=== PATIENT | male | born 1960 | race Caucasian/White ===

== ENCOUNTER 2023-10-15 12:16 | Outpatient (AMB) | payer OTHER, SELFPAY ==
--- NOTE | 2023-10-15 12:29 | MHC.PC.OV ---
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 Accompanied by: Self / Same As Patient Allergies loratadine [From Claritin] Allergy (Severe, Verified 10/15/23 12:38) Hives Medication List - Last Reconciled 10/15/23 by Sylvia Stoner MD empagliflozin (Jardiance) 10 mg PO DAILY finasteride 5 mg PO DAILY fluticasone propionate 220 mcg/actuation 2 puffs inhalation BID metformin ER 1,000 mg PO BID methocarbamol 750 mg PO TID semaglutide (Ozempic) mg subcut tamsulosin 0.8 mg PO DAILY tiotropium bromide 1.25 mcg/actuation (Spiriva Respimat) 2 puffs inhalation DAILY Tobacco use date assessed: 10/15/23 Dental Screening Dental Screen Date: 10/15/23 Did you have a dental visit in the last 12 months?: Yes Did you have a dental problem in the last 6 months where you did not have access to dental care?: No Was dental information given to patient?: Patient has dentist HPI HPI Comments History of Present Illness Details This is a 62-year-old male with diabetes mellitus type 2, hypertension, COPD and BPH that comes today to establish care. He complains of a low back pain that started about a month ago when he did a twisted motion while trying to move a 300 lb object. The low back pain radiates to the right leg and is associated with right leg numbness. He is able to walk with no assistive device. No fever, bowel or bladder incontinence. Last A1c was recent and he was 6.4%. Blood pressure elevated and will be recheck in 3 weeks by nurse navigator. COPD stable with Spiriva and use rescue inhaler once a month. On finasteride for BPH. No chest pain or shortness on breath. [facility] Surgical History History of rotator cuff surgery Family History Mother No problems noted. Father Hypertension Diabetes Social History (Updated 10/15/23 @ 12:47 by Sylvia Stoner MD) Housing: House Alcohol intake: current Alcohol intake frequency: 3 or more drinks per day Alcohol type: beer Patient Tobacco Use Status: Former Tobacco user Tobacco use type: Cigarette e-Cigarette/Vaping Use: Never Used Second Hand Smoke Exposure: No service: Yes Current occupational status: employed Current occupational exposures/hazards: No Cognitive needs: No Hearing needs: No Vision needs: Yes Questionnaire PHQ-9 Over the last 2 weeks, how often have you been bothered by any of the following problems? 1. Little interest or pleasure in doing things: not at all 2. Feeling down, depressed, or hopeless: not at all 3. Trouble falling or staying asleep, or sleeping too much: not at all 4. Feeling tired or having little energy: not at all 5. Poor appetite or overeating: not at all 6. Feeling bad about yourself - or that you are a failure or have let yourself or your family down: not at all 7. Trouble concentrating on things, such as reading the newspaper or watching television: not at all 8. Moving or speaking so slowly that other people could have noticed. Or the opposite - being so fidgety or restless that you have been moving around a lot more than usual: not at all 9. Thoughts that you would be better off or of hurting yourself in some way: not at all Total score: 0 Depression Screening Interpretation: Negative Depression Screening Done: Yes 07130 - PHQ-9 Billing: Yes Source: Developed by Drs. Bryant Pete, Deana Henderson, Mirza Tierney and colleagues, with an educational jayesh from [employer]. Thrive Questionnaire Date Thrive assessed: 10/15/23 I am a: Patient What is your living situation today?: I have a steady place to live Within the past 12 months, did the food you bought not last and you didn't have the money to get more?: Never true Within the past 12 months, did you worry whether your food would run out before you got money to buy more?: Never true Do you have trouble paying for medicines?: No Do you have trouble getting transportation to medical appointments?: No Do you have trouble paying your heating and electricity bill?: No Do you have trouble taking care of your child, family member or friend?: No Do you have trouble with day-to-day activities such as bathing, preparing meals, shopping, managing finances, etc.?: No Are you currently unemployed and looking for a job?: No Are you interested in more education?: No Please select the resources that you would like help with: None Currently or been in a relationship where the following occur: no concerns reported THRIVE Score: 0 AUDIT C Alcohol Use Questionnaire (AUDIT-C) 1. How often do you have a drink containing alcohol?: 4 or more times a week 2. How many drinks containing alcohol do you have on a typical day when you are drinking?: 3 or 4 3. How often do you have six or more drinks on one occasion?: Never Total Score: 5 FLETCHER-7 AMB Questionnaire FLETCHER-7 Date FLETCHER - 7 assessed: 10/15/23 Feeling nervous, anxious, or on edge: 0 = Not at all Not being able to stop or control worryin = Not at all Worrying too much about different things: 0 = Not at all Trouble relaxin = Not at all Being so restless that it is hard to sit still: 0 = Not at all Becoming easily annoyed or irritable: 0 = Not at all Feeling afraid as if something awful might happen: 0 = Not at all Total FLETCHER-7 score (0-4 normal; 5-9 mild; 10-14 moderate; 15-21 severe): 0 Source: Developed by Drs. Bryant Pete, Deana Henderson, Mirza Tierney and colleagues, with an educational jayesh from [employer]. FLETCHER-7 Assessment Billing FLETCHER-7 Assessment Tool: FLETCHER-7 Assessment 44408 Review of Systems Const All systems reviewed & are unremarkable except as noted in HPI and below Card Denies chest pain at rest, Denies chest pain with activity, Denies edema, Denies irregular heart rhythm, Denies claudication, Denies dyspnea, Denies dyspnea on exertion, Denies orthopnea, Denies paroxysmal nocturnal dyspnea and Denies slow heart rate Resp Denies cough, Denies dyspnea and Denies dyspnea on exertion Musc Reports back pain and Reports radiating pain into limb Physical exam (Primary Care) Vital Signs: Last Vital Signs BP 152/70 H 10/15/23 12:30 BMI result Body Mass Index 28.0 Tobacco/Smoking Status: Tobacco use Status Tobacco use date assessed 10/15/23 10/15/23 12:39 Patient Tobacco Use Status Former Tobacco user 10/15/23 12:39 Tobacco use type Cigarette 10/15/23 12:39 e-Cigarette/Vaping Use Never Used 10/15/23 12:39 PHQ-9: PHQ-9 Score PHQ-9: Total score 0 10/15/23 12:39 Depression Screening Interpretation: Negative Thrive Assessment: Date of Thrive Assessment Date Thrive assessed 10/15/23 10/15/23 12:39 Currently or been in a relationship where the following occur: no concerns reported Const General: cooperative Resp Effort & Inspection: normal respiratory effort Auscultation: clear to auscultation bilaterally Cardio Jugular venous distension: no JVD Rate: regular rate Rhythm: regular rhythm Heart sounds: S1 normal heart sound present and S2 normal heart sound present Back/Spine/Pelvis Thoracic/Lumbar Spine: straight leg raise positive right at 30 degrees Extrem General: Yes full ROM Assessment and Plan Assessment & Plan (1) Right sided sciatica: Code(s): M54.31 - Sciatica, right side Plan: Referred to Ortho. Start diclofenac as needed. Continue methocarbamol as needed. (2) Type 2 diabetes mellitus, without long-term current use of insulin: Code(s): E11.9 - Type 2 diabetes mellitus without complications Qualifiers: Diabetes mellitus complication status: with neurologic complications Diabetes mellitus complication detail: with unspecified neuropathy Qualified Code(s): E11.40 - Type 2 diabetes mellitus with diabetic neuropathy, unspecified Plan: Continue Ozempic and Jardiance. A1c goal is equal or less than 7%. (3) Essential hypertension: Code(s): I10 - Essential (primary) hypertension Plan: Recheck blood pressure with nurse navigator in 3 weeks. (4) COPD (chronic obstructive pulmonary disease): Code(s): J44.9 - Chronic obstructive pulmonary disease, unspecified Qualifiers: COPD type: unspecified COPD Qualified Code(s): J44.9 - Chronic obstructive pulmonary disease, unspecified Plan: Continue Spiriva. Use rescue inhaler as needed. (5) BPH (benign prostatic hyperplasia): Code(s): N40.0 - Benign prostatic hyperplasia without lower urinary tract symptoms Qualifiers: Lower urinary tract symptom presence: unspecified whether lower urinary tract symptoms present Qualified Code(s): N40.0 - Benign prostatic hyperplasia without lower urinary tract symptoms Plan: Continue finasteride. Orders: Orders Lipid Panel 4 Months E11.9 - Type 2 diabetes mellitus without complications, E78.5 - Hyperlipidemia, unspecified Microalbumin, Random (w Creat) 4 Months E11.9 - Type 2 diabetes mellitus without complications Comprehensive [place]. Panel Fast 4 Months E11.9 - Type 2 diabetes mellitus without complications Referrals Orthopedics Referral M54.31 - Sciatica, right side Medications: New diclofenac sodium 75 mg PO BID PRN 60 tabs 0RF pain 30 days M54.31 - Sciatica, right side methocarbamol 750 mg PO TID 90 tabs 1RF 30 days Coding Level of Care Code New Pt Level 4 (27050) Complex EM visit Add On G2211 Diagnoses Right sided sciatica M54.31 Type 2 diabetes mellitus with diabetic neuropathy, without long-term current use of insulin E11.40 Diabetes mellitus complication status: with neurologic complications Diabetes mellitus complication detail: with unspecified neuropathy Essential hypertension I10 Chronic obstructive pulmonary disease, unspecified COPD type J44.9 COPD type: unspecified COPD Benign prostatic hyperplasia, unspecified whether lower urinary tract symptoms present N40.0 Lower urinary tract symptom presence: unspecified whether lower urinary tract symptoms present Additional Codes FLETCHER-7 Assessment Billing - FLETCHER-7 Assessment Tool: FLETCHER-7 Assessment 15143 ([id number]) Time Spent (min) 25
[2023-10-15 12:30] VITALS: BP 152/70; BMI 28.0
== END 2023-10-15 12:57 | disposition home or self-care (01) ==
PROVIDERS: Visit Provider Internal Medicine
DX: M54.31 Sciatica, right side (principal); E11.40 Type 2 diabetes mellitus with diabetic neuropathy, unspecified; I10 Essential (primary) hypertension; J44.9 Chronic obstructive pulmonary disease, unspecified; N40.0 Benign prostatic hyperplasia without lower urinary tract symptoms
CPT/HCPCS: 99204; G2211

== ENCOUNTER 2024-03-10 15:46 | Outpatient (REF) | payer OTHER, SELFPAY ==
[2024-03-10 17:10] LABS: Alanine Aminotransferase 28 U/L (0-40); Albumin Level 3.8 g/dL (3.5-5.0); Alkaline Phosphatase 173 U/L (39-117); Anion Gap 14 (12-20); Aspartate Amino Transferase 28 U/L (5-37); Bilirubin Total 1.1 mg/dL (0.0-1.0); Blood Urea Nitrogen 14 mg/dL (9-16); Calcium 9.4 mg/dL (8.4-10.2); Carbon Dioxide 23 mmol/L (22-29); Chloride 107 mmol/L (96-108); Cholesterol 151 mg/dL (<200); Estimated Glomerular Filt Rate > 60; Glucose Fasting 82 mg/dL (60-99); HDL Cholesterol 69 mg/dL (>40); LDL Cholesterol Calculated 63 mg/dL (<100); Potassium 4.1 mmol/L (3.3-5.1); Sodium 140 mmol/L (135-145); Triglycerides 99 mg/dL (<150)
[2024-03-10 18:37] LABS: Creatinine Urine 87.58 mg/dL; Microalbum/Creatinine Ratio Ur 19.4 ug/mg cr (<30)
== END 2024-03-10 15:47 | disposition home or self-care (01) ==
LOC: HO.LAB 15:46
PROVIDERS: PCP Internal Medicine; Visit Provider Internal Medicine
DX: Z00.01 Encounter for general adult medical examination with abnormal findings (principal); J44.9 Chronic obstructive pulmonary disease, unspecified; E11.40 Type 2 diabetes mellitus with diabetic neuropathy, unspecified; N40.0 Benign prostatic hyperplasia without lower urinary tract symptoms; J01.90 Acute sinusitis, unspecified; E78.5 Hyperlipidemia, unspecified; Z79.84 Long term (current) use of oral hypoglycemic drugs; Z79.85 Long-term (current) use of injectable non-insulin antidiabetic drugs; Z28.21 Immunization not carried out because of patient refusal
CPT/HCPCS: 36415; 80053; 80061; 82043; 82570; 83036; 90471; 96127

== ENCOUNTER 2024-03-10 16:16 | Outpatient (AMB) | payer OTHER, SELFPAY ==
[2024-03-10 16:19] VITALS: BP 152/80; BMI 27.8
--- NOTE | 2024-03-10 16:19 | A.OFFPC_ITS ---
Vital Signs 03/10/24 16:19 03/10/24 16:59 Height 5 ft 10 in Weight 194 lb BMI 27.8 BP 152/80 H 150/80 H Blood Pressure Location Lt brachial Lt brachial Position Sitting Sitting Intake Visit Reasons: Annual exam Intake Note: Patient here for an Annual Physical Exam Certified Orthotist Required: No Accompanied by: Self / Same As Patient Allergies loratadine [From Claritin] Allergy (Severe, Verified 03/10/24 16:23) Hives Medication List - Last Reconciled 03/10/24 by Sylvia Stoner MD diclofenac sodium 75 mg PO BID PRN 30 days empagliflozin (Jardiance) 10 mg PO DAILY finasteride 5 mg PO DAILY fluticasone propionate 220 mcg/actuation 2 puffs inhalation BID losartan-hydrochlorothiazide 100-12.5 mg 1 tab PO DAILY metformin ER 1,000 mg PO BID methocarbamol 750 mg PO TID 30 days semaglutide (Ozempic) 0.25 mg (0.368 mL) subcut QWEEK 4 weeks tamsulosin 0.8 mg (2 x 0.4 mg) PO DAILY 90 days tiotropium bromide 1.25 mcg/actuation (Spiriva Respimat) 2 puffs inhalation DAILY Tobacco use date assessed: 10/15/23 Dental Screening Dental Screen Date: 10/15/23 HPI HPI Comments History of Present Illness Details This is 63-year-old male with diabetes mellitus type 2 and COPD that comes for his physical exam. A1c within goal. I will decrease metformin and increase Ozempic. Diabetic eye exam was January 2024. Colonoscopy done about 4-5 years ago at [facility] and he was normal. COPD stable with long-acting inhaler. Use rescue inhaler as needed. Labs are still pending. Complains of sinus tenderness and I will prescribe an antibiotic. Also has BPH and needs referral to Urology. Has neuropathy and needs referral to Neurology. Blood pressure elevated today and run out of blood pressure medication. [facility] Surgical History (Updated 03/10/24 @ 16:59 by Sylvia Stoner MD) History of colonoscopy History of rotator cuff surgery Family History (Updated 03/10/24 @ 16:30 by Sylvia Stoner MD) Mother Osteoporosis Father Hypertension Diabetes Social History (Updated 03/10/24 @ 16:31 by Sylvia Stoner MD) Housing: House Alcohol intake: current Alcohol intake frequency: 0-2 drinks per day Alcohol type: beer Patient Tobacco Use Status: Former Tobacco user Tobacco use type: Cigarette e-Cigarette/Vaping Use: Never Used Second Hand Smoke Exposure: No service: Yes Current occupational status: employed Current occupational exposures/hazards: No Cognitive needs: No Hearing needs: No Vision needs: Yes Questionnaire PHQ-9 Over the last 2 weeks, how often have you been bothered by any of the following problems? 1. Little interest or pleasure in doing things: not at all 2. Feeling down, depressed, or hopeless: not at all 3. Trouble falling or staying asleep, or sleeping too much: not at all 4. Feeling tired or having little energy: not at all 5. Poor appetite or overeating: not at all 6. Feeling bad about yourself - or that you are a failure or have let yourself or your family down: not at all 7. Trouble concentrating on things, such as reading the newspaper or watching television: not at all 8. Moving or speaking so slowly that other people could have noticed. Or the opposite - being so fidgety or restless that you have been moving around a lot more than usual: not at all 9. Thoughts that you would be better off or of hurting yourself in some way: not at all Total score: 0 Depression Screening Interpretation: Negative Depression Screening Done: Yes 43474 - PHQ-9 Billing: Yes Source: Developed by Drs. Bryant Pete, Deana Henderson, Mirza Tierney and colleagues, with an educational jayesh from [employer]. Thrive Questionnaire Date Thrive assessed: 10/15/23 I am a: Patient What is your living situation today?: I have a steady place to live Within the past 12 months, did the food you bought not last and you didn't have the money to get more?: Never true Within the past 12 months, did you worry whether your food would run out before you got money to buy more?: Never true Do you have trouble paying for medicines?: No Do you have trouble getting transportation to medical appointments?: No Do you have trouble paying your heating and electricity bill?: No Do you have trouble taking care of your child, family member or friend?: No Do you have trouble with day-to-day activities such as bathing, preparing meals, shopping, managing finances, etc.?: No Are you currently unemployed and looking for a job?: No Are you interested in more education?: I choose not to answer this question Please select the resources that you would like help with: None Currently or been in a relationship where the following occur: No concerns reported THRIVE Score: 0 AUDIT C Alcohol Use Questionnaire (AUDIT-C) 1. How often do you have a drink containing alcohol?: 4 or more times a week 2. How many drinks containing alcohol do you have on a typical day when you are drinking?: 1 or 2 3. How often do you have six or more drinks on one occasion?: Never Total Score: 4 FLETCHER-7 AMB Questionnaire FLETCHER-7 Date FLETCHER - 7 assessed: 10/15/23 Feeling nervous, anxious, or on edge: 0 = Not at all Not being able to stop or control worryin = Not at all Worrying too much about different things: 0 = Not at all Trouble relaxin = Not at all Being so restless that it is hard to sit still: 0 = Not at all Becoming easily annoyed or irritable: 0 = Not at all Feeling afraid as if something awful might happen: 0 = Not at all Total FLETCHER-7 score (0-4 normal; 5-9 mild; 10-14 moderate; 15-21 severe): 0 Source: Developed by Drs. Bryant Pete, Deana Henderson, Mirza Tierney and colleagues, with an educational jayesh from [employer]. FLETCHER-7 Assessment Billing FLETCHER-7 Assessment Tool: FLETCHER-7 Assessment 73870 Review of Systems Const All systems reviewed & are unremarkable except as noted in HPI and below Card Denies chest pain at rest, Denies chest pain with activity, Denies edema, Denies irregular heart rhythm, Denies claudication, Denies dyspnea, Denies dyspnea on exertion, Denies orthopnea, Denies paroxysmal nocturnal dyspnea and Denies slow heart rate Resp Denies cough, Denies dyspnea and Denies dyspnea on exertion GI Denies abdominal pain, Denies change in bowel habits, Denies excessive flatus, Denies nausea and Denies vomiting Denies urinary hesitancy, Denies urinary incontinence and Denies urinary urgency Musc Denies abnormal gait, Denies atrophy, Denies deformity and Denies limited range of motion Skin/Breast Denies bleeding lesions, Denies changing lesions and Denies rash Neuro Denies abnormal gait, Denies behavioral changes and Denies lack of coordination Psych Denies behavioral changes Physical exam (Primary Care) Vital Signs: Last Vital Signs BP 152/80 H 03/10/24 16:19 BMI result Body Mass Index 27.8 Tobacco/Smoking Status: Tobacco use Status Tobacco use date assessed 10/15/23 03/10/24 16:23 Patient Tobacco Use Status Former Tobacco user 03/10/24 16:31 Tobacco use type Cigarette 03/10/24 16:31 e-Cigarette/Vaping Use Never Used 03/10/24 16:31 PHQ-9: PHQ-9 Score PHQ-9: Total score 0 03/10/24 16:49 Depression Screening Interpretation: Negative Thrive Assessment: Date of Thrive Assessment Date Thrive assessed 10/15/23 03/10/24 16:23 Currently or been in a relationship where the following occur: No concerns reported HENTX Head: Yes normal to inspection, Yes normocephalic and Yes atraumatic Ears: external ears normal Eyes General: appearance normal, both eyes and all related structures Eyelids: Yes eyelids normal Conjunctivae: conjunctivae normal Neck Neck: Yes normal visual inspection and Yes supple Resp Effort & Inspection: normal respiratory effort Auscultation: clear to auscultation bilaterally Cardio Jugular venous distension: no JVD Rate: regular rate Rhythm: regular rhythm Heart sounds: S1 normal heart sound present and S2 normal heart sound present GI Inspection: Yes normal to inspection Palpation (GI): Soft to palpation and nontender Auscultation: normal bowel sounds Skin General skin exam: no rashes or lesions noted Neuro General: no focal motor deficits Extrem General: Yes full ROM Psych Appearance: grossly normal Office Procedures Flu Questionnaire Does the patient have a severe egg allergy?: No Results AMB Hemoglobin A1c AMB Hemoglobin A1c 5.7 % Last Edit by KY Mcnally on 03/10/24 16:3 5 Immunizations Fluarix Triv [id number] (PF) 45 mcg (15 mcg x 3)/0.5 mL IM syringe Performing Provider: Sylvia Stoner MD [facility] [place] Documented (not given) by: [place] Mcnally on 03/10/24 16:29 Reason Not Given: Patient Refused Results Reviewed Results Reviewed: Laboratory Last Values Hgb A1c (Clinic) 5.7 % (4.0-6.0) 03/10/24 16:28 Coding Level of Care Code Est Pt Level 3 (73208) Est Pt Prev Care 40-64y(18627) Diagnoses Physical exam Z00.00 Chronic obstructive pulmonary disease, unspecified COPD type J44.9 COPD type: unspecified COPD Type 2 diabetes mellitus with diabetic neuropathy, without long-term current use of insulin E11.40 Diabetes mellitus complication status: with neurologic complications Diabetes mellitus complication detail: with unspecified neuropathy Benign prostatic hyperplasia, unspecified whether lower urinary tract symptoms present N40.0 Lower urinary tract symptom presence: unspecified whether lower urinary tract symptoms present Neuropathy G62.9 Acute sinusitis J01.90 Additional Codes FLETCHER-7 Assessment Billing - FLETCHER-7 Assessment Tool: FLETCHER-7 Assessment 71826 ([id number]) Time Spent (min) 35 Assessment & Plan Assessment & Plan (1) Physical exam: Code(s): Z00.00 - Encounter for general adult medical examination without abnormal findings Category: Medical Plan: Repeat in a year. (2) COPD (chronic obstructive pulmonary disease): Code(s): J44.9 - Chronic obstructive pulmonary disease, unspecified Category: Medical Qualifiers: COPD type: unspecified COPD Qualified Code(s): J44.9 - Chronic obstructive pulmonary disease, unspecified Plan: Continue long-acting inhaler. Use rescue inhaler as needed. (3) Type 2 diabetes mellitus, without long-term current use of insulin: Code(s): E11.9 - Type 2 diabetes mellitus without complications Category: Medical Qualifiers: Diabetes mellitus complication status: with neurologic complications Diabetes mellitus complication detail: with unspecified neuropathy Qualified Code(s): E11.40 - Type 2 diabetes mellitus with diabetic neuropathy, unspecified Plan: Continue Jardiance. Decrease metformin. Increase Ozempic. A1c goal is equal or less than 7%. (4) BPH (benign prostatic hyperplasia): Code(s): N40.0 - Benign prostatic hyperplasia without lower urinary tract symptoms Category: Medical Qualifiers: Lower urinary tract symptom presence: unspecified whether lower urinary tract symptoms present Qualified Code(s): N40.0 - Benign prostatic hyperplasia without lower urinary tract symptoms Plan: Referred to urology. (5) Neuropathy: Code(s): G62.9 - Polyneuropathy, unspecified Category: Medical Plan: Referred to neurology. (6) Acute sinusitis: Code(s): J01.90 - Acute sinusitis, unspecified Category: Medical Plan: Start antibiotic. Orders: Orders Influenza [id number] Immunization Today Z23 - Encounter for immunization AMB Hemoglobin A1c Today E11.40 - Type 2 diabetes mellitus with diabetic neuropathy, unspecified Referrals Neurology Referral G62.9 - Polyneuropathy, unspecified Urology Referral N40.0 - Benign prostatic hyperplasia without lower urinary tract symptoms Medications: New semaglutide (Ozempic) 0.5 mg (0.736 mL) subcut QWEEK 4 weeks 2.944 mL 0RF E11.40 - Type 2 diabetes mellitus with diabetic neuropathy, unspecified losartan-hydrochlorothiazide 100-12.5 mg 1 tab PO DAILY 90 days 90 tabs 1RF metformin ER 500 mg PO BID 90 days 180 tabs 2RF Discontinued semaglutide (Ozempic) Discontinued Reason: Patient Completed Course 0.25 mg (0.368 mL) subcut QWEEK 4 weeks 1.472 mL 0RF
[2024-03-10 16:59] VITALS: BP 150/80
== END 2024-03-10 16:41 | disposition home or self-care (01) ==
LOC: HO.HMCH 16:16
PROVIDERS: PCP Internal Medicine; Visit Provider Internal Medicine
DX: Z00.00 Encounter for general adult medical examination without abnormal findings (principal); J44.9 Chronic obstructive pulmonary disease, unspecified; E11.40 Type 2 diabetes mellitus with diabetic neuropathy, unspecified; N40.0 Benign prostatic hyperplasia without lower urinary tract symptoms; G62.9 Polyneuropathy, unspecified; J01.90 Acute sinusitis, unspecified

== ENCOUNTER 2024-05-16 07:42 | Outpatient (AMB) | payer OTHER, SELFPAY ==
--- NOTE | 2024-05-16 07:51 | A.OFFVIS_ITS ---
Intake Visit Reasons: BPH Intake Note: New Patient presents for initial visit for Enlarged Prostate Urology Medications: tamsulosin, finasteride Blood Thinner: none PVR: 39ml's Medical Housekeeper Required: No Accompanied by: Self / Same As Patient Allergies loratadine [From Claritin] Allergy (Severe, Verified 05/16/24 08:51) Hives Medication List - Last Reconciled 05/16/24 by JOSE GUADALUPE Pettit- diclofenac sodium 75 mg PO BID PRN 30 days empagliflozin (Jardiance) 10 mg PO DAILY finasteride 5 mg PO DAILY fluticasone propionate 220 mcg/actuation 2 puffs inhalation BID losartan-hydrochlorothiazide 100-12.5 mg 1 tab PO DAILY 90 days metformin ER 500 mg PO BID 90 days methocarbamol 750 mg PO TID 30 days semaglutide (Ozempic) 0.5 mg (0.736 mL) subcut QWEEK 4 weeks tamsulosin 0.8 mg (2 x 0.4 mg) PO DAILY 90 days tiotropium bromide 1.25 mcg/actuation (Spiriva Respimat) 2 puffs inhalation DAILY tizanidine 4 mg PO BEDTIME PRN 7 days HPI Comments Details: Harsh is a very pleasant 63-year-old male patient of . He has a past medical history of type 2 diabetes, hypertension, COPD, and BPH. He presents to the office today as a new patient for ongoing lower urinary tract symptoms. In discussion with the patient today reports having followed up with PVR and undergoing further workup for ongoing lower urinary tract symptoms he had been experiencing at which time recommendations were made for prostate procedure however this was never completed as he reports having had issues with his insurance coverage. He reports compliance with 0.8 mg of Flomax daily as well as finasteride. He continues to report episodes of nocturia up to 5 times per night as well as urinary urgency and frequency throughout the day. In office urinalysis results reviewed with the patient today. PVR 39 mL. In review of patient's chart it appears last A1c 03/03 5.7 however on glucometer today average A1c 7.5. We discussed at length potential causes of lower urinary tract symptoms patient is experiencing. We discussed further workup however wi ll attempt to obtain previous urology records for continuity of care. ADAM offered however deferred. [facility] Surgical History (Updated 03/10/24 @ 16:59 by Sylvia Stoner MD) History of colonoscopy History of rotator cuff surgery Family History (Updated 03/10/24 @ 16:30 by Sylvia Stoner MD) Mother Osteoporosis Father Hypertension Diabetes Social History (Updated 03/10/24 @ 16:31 by Sylvia Stoner MD) Housing: House Alcohol intake: current Alcohol intake frequency: 0-2 drinks per day Alcohol type: beer Patient Tobacco Use Status: Former Tobacco user Tobacco use type: Cigarette e-Cigarette/Vaping Use: Never Used Second Hand Smoke Exposure: No service: Yes Current occupational status: employed Current occupational exposures/hazards: No Cognitive needs: No Hearing needs: No Vision needs: Yes Review of Systems Const All systems reviewed & are unremarkable except as noted in HPI and below Physical Exam Const General: cooperative, healthy appearing, comfortable, no acute distress, well developed, alert and awake Orientation/consciousness: patient oriented x3 Limitations: no limitations HEENT Head: Yes normal to inspection, Yes normocephalic and Yes atraumatic Ears: hearing grossly normal bilaterally Eyes General: appearance normal, both eyes and all related structures Neck Neck: Yes normal visual inspection and Yes trachea midline Chest Chest palpation & inspection: normal inspection of the chest Resp Effort & Inspection: normal respiratory effort and able to speak in complete sentences Cardio Rate: regular rate GI Inspection: Yes normal to inspection General: Yes no CVA tenderness Back/Spine/Pelvis Back: no CVA tenderness Skin General skin exam: no rashes or lesions noted Neuro General: patient oriented x3 Extrem General: Yes normal to inspection Psych Appearance: grossly normal and well kempt Mental Status: mental status grossly normal Speech and movement: Normal speech and movement present and Clear speech present Affect: normal affect Attitude: cooperative Thought process: Normal thought process present Thought content: Normal thought content present Insight: Fair insight present (Psych) Judgement: Fair judgement present (Psych) Office Procedures Post Void Residual Post Residual Void Post Void Residual (PVR): 39 [id number] Void Residual by ultrasound Results AMB Urinalysis, Automated UA Leukoctes 0 Jarret/uL Last Edit by [facility] Health[facility] Nguyen on 05/16/24 08:18 UA Nitrite Last Edit by Fengguomariana Nguyen on 05/16/24 08:18 UA Urobilinogen 0.2 mg/dL Last Edit by [facility] Nguyen on 05/16/24 08:18 UA Protein 30 mg/dL Last Edit by [employer]ographylucía on 05/16/24 08:18 UA pH 6.0 Last Edit by [facility] RethinkDBlucía on 05/16/24 08:18 UA Blood 0 Peter/uL Last Edit by [employer]ographylucía on 05/16/24 08:18 UA Specific [place] 1.025 Last Edit by [employer]ographylucía on 05/16/24 08:18 UA Ketone Last Edit by [employer]ographylucía on 05/16/24 08:18 UA Bilirubin 1 mg/dL Last Edit by [employer]ographylucía on 05/16/24 08:18 UA Glucose 1000 mg/dL Last Edit by [facility]eve RethinkDBlucía on 05/16/24 08:18 Results Reviewed Results Reviewed: Laboratory Last Values Urine pH (Auto) 6.0 05/16/24 08:15 Specific [place] (Auto) 1.025 05/16/24 08:15 Urine Protein (Auto) 30 mg/dL 05/16/24 08:15 Glucose (UA)(Auto) 1000 mg/dL 05/16/24 08:15 Urine Blood (Auto) 0 Peter/uL 05/16/24 08:15 Urine Bilirubin (Auto) 1 mg/dL 05/16/24 08:15 Urine Urobilinogen (Auto) 0.2 mg/dL 05/16/24 08:15 Leukocyte Esterase (Auto) 0 Jarret/uL 05/16/24 08:15 Assessment & Plan Assessment & Plan (1) BPH (benign prostatic hyperplasia): Code(s): N40.0 - Benign prostatic hyperplasia without lower urinary tract symptoms Category: Medical Qualifiers: Lower urinary tract symptom presence: unspecified whether lower urinary tract symptoms present Qualified Code(s): N40.0 - Benign prostatic hyperplasia without lower urinary tract symptoms (2) Urinary urgency: Code(s): R39.15 - Urgency of urination Category: Medical (3) Urinary frequency: Code(s): R35.0 - Frequency of micturition Category: Medical (4) Nocturia: Code(s): R35.1 - Nocturia Category: Medical (5) Lower urinary tract symptoms: Code(s): R39.9 - Unspecified symptoms and signs involving the genitourinary system Category: Medical Plan In office urinalysis results reviewed with the patient today; as noted above. PVR 39 mL. Continue Flomax and finasteride. Medical release form signed will attempt to obtain previous urology records as discussed. Discussed further workup however will await records as patient reports having had in office cystoscopy, imaging, PSA, and ADAM in the past. Start Myrbetriq as discussed and prescribed. We discussed lifestyle modifications to assist with lower urinary tract symptoms. We discussed bladder triggers/irritants. We discussed potential causes of lower urinary tract symptoms patient was experiencing. We discussed importance of managing diabetes for improvement in lower urinary tract symptoms as well as overall health and well-being. Follow-up in 1-3 months with PVR; or sooner with any issues, concerns, and or questions. Orders: Orders AMB Urinalysis Automated Today Z13.9 - Encounter for screening, unspecified AMB Post Void Residual by ultrasound Today N40.0 - Benign prostatic hyperplasia without lower urinary tract symptoms Medications: New mirabegron ER (Myrbetriq) 25 mg PO DAILY 30 tabs 1RF 30 days N30.10 - Interstitial cystitis (chronic) without hematuria, N32.81 - Overactive bladder, R35.1 - Nocturia, R39.15 - Urgency of urination Patient Instructions: The patient had an opportunity to ask questions regarding the treatment plan. All questions were answered. Physical exam, labs, and imaging were discussed and reviewed in detail. As well as risks, benefits, and discussion of treatment choices. No major barriers to understanding were identified. The patient ex pressed understanding and agreement with the above treatment plan. The patient was made aware they should contact our office by phone for worsening of their current condition, the appearance of new symptoms, or with any questions or concerns. Compliance is encouraged with any medications and follow up testing that is ordered. It is a privilege to be allowed the opportunity to participate in? your urological care.? Again, if you have any questions or concerns If you have any questions or concerns please do not hesitate to contact me. The office is [phone]. This note is constructed using voice recognition software. While every effort has been made to ensure accuracy hospice volunteer errors may have been included. Yours sincerely, OMAR Pettit Coding Level of Care Code New Pt Level 4 (05802) Diagnoses Benign prostatic hyperplasia, unspecified whether lower urinary tract symptoms present N40.0 Lower urinary tract symptom presence: unspecified whether lower urinary tract symptoms present Urinary urgency R39.15 Urinary frequency R35.0 Nocturia R35.1 Lower urinary tract symptoms R39.9 CPT Codes Post Residual Void - PVR CPT Code: 00607-Gdpd Void Residual by ultrasound ([id number])
== END 2024-05-16 08:34 | disposition home or self-care (01) ==
PROVIDERS: PCP Internal Medicine; Visit Provider Nurse Practitioner Family
DX: N40.0 Benign prostatic hyperplasia without lower urinary tract symptoms (principal); R39.15 Urgency of urination; R35.0 Frequency of micturition; R35.1 Nocturia; R39.9 Unspecified symptoms and signs involving the genitourinary system; Z13.9 Encounter for screening, unspecified
CPT/HCPCS: 99204

== ENCOUNTER → 2024-05-16 07:42 | Outpatient (BNVA) | payer OTHER, SELFPAY | PROVIDERS: PCP Internal Medicine; Visit Provider Nurse Practitioner Family | DX: N40.1 Benign prostatic hyperplasia with lower urinary tract symptoms (principal); R39.15 Urgency of urination; R35.0 Frequency of micturition; R35.1 Nocturia; R39.9 Unspecified symptoms and signs involving the genitourinary system; Z79.899 Other long term (current) drug therapy | CPT/HCPCS: 51798; 81003 ==

== ENCOUNTER 2024-06-12 12:49 | Emergency (ER) | payer OTHER, SELFPAY ==
--- NOTE | ~2024-06-12 | XR_ITS ---
CLINICAL HISTORY: Chest pain 1 view chest x-ray Comparison: None Findings: The lungs are clear. Normal size heart. No acute fracture. IMPRESSION: 1. No acute findings. This document has been electronically signed by: Yasemin Aaron MD on 06/12/2024 13:40:46
--- NOTE | 2024-06-12 12:55 | ECG_ITS ---
Test Reason : CHEST PAIN Blood Pressure : */* mmHG Vent. Rate : 90 BPM Atrial Rate : 90 BPM P-R Int : 148 ms QRS Dur : 84 ms QT Int : 344 ms P-R-T Axes : 67 39 68 degrees QTcB Int : 420 ms Normal sinus rhythm Nonspecific ST and T wave abnormality Abnormal ECG No previous ECGs available Referred By: Mir Gonzalez Electronically Signed By: Darryn Stock
[2024-06-12 13:18] VITALS: BP 133/71; PULSE 84; RESP 16; TEMP 36.8; O2SAT 99; BMI 28.2
--- NOTE | 2024-06-12 13:21 | ED.CHESTPAIN ---
HPI - Chest Pain General Chief Complaint: Chest Pain Stated Complaint: chest pain Time Seen by Provider: 06/12/24 14:11 Source: patient Limitations: no limitations History of Present Illness ED Provider: Chapin Brown DO HPI narrative: 63-year-old male with past medical history of lvk-teejaiu-dhgaifaeu diabetes, COPD not on oxygen, hypertension and BPH presents to the ED for an evaluation of chest discomfort. Patient describes the discomfort as sharp, located over the left chest and wrapping around his left-sided chest wall into his left-sided back. The pain has been constant for the past 2 weeks with no relief and no clear mitigating or exacerbating factors with the exception of leaning forward with his shoulders shrugged. He denies associated exertional symptoms or any worsening symptoms with exertion, shortness of breath, diaphoresis, nausea, vomiting, recent cough, runny nose or fevers or any additional symptoms today. He states he had an unremarkable stress test approximately 1 year ago and does not currently have a primary care provider but is attempting to search for 1. Has not smoked tobacco for the past 20 years. Not on oxygen at home. He states he works long hours, denies history of DVT or PE or lower extremity pain or swelling. He does have peripheral neuropathy with no recent changes. Related Data Home Medications ?Medication ?Instructions ?Recorded ?Confirmed empagliflozin 10 mg tablet 10 mg PO DAILY 10/15/23 03/10/24 (Jardiance) finasteride 5 mg tablet 5 mg PO DAILY 10/15/23 03/10/24 fluticasone propionate 220 2 puff inhalation BID 10/15/23 03/10/24 mcg/actuation HFA aerosol inhaler tiotropium bromide 1.25 2 puff inhalation DAILY 10/15/23 03/10/24 mcg/actuation mist for inhalation (Spiriva Respimat) Previous Rx's ?Medication ?Instructions ?Recorded losartan 100 1 tab PO DAILY 90 days #90 tabs 03/10/24 mg-hydrochlorothiazide 12.5 mg tablet metformin 500 mg tablet,extended 500 mg PO BID 90 days #180 tabs 03/10/24 release 24 hr methocarbamol 750 mg tablet 750 mg PO TID 30 days #90 tabs 05/11/24 tizanidine 4 mg capsule 4 mg PO BEDTIME PRN muscle 05/13/24 spasticity 7 days #7 caps mirabegron 25 mg tablet,extended 25 mg PO DAILY 30 days #30 tabs 05/16/24 release 24 hr (Myrbetriq) tamsulosin 0.4 mg capsule 0.8 mg (2 x 0.4 mg) PO DAILY 90 05/21/24 days #180 caps semaglutide 0.25 mg or 0.5 mg (2 0.5 mg (0.736 mL) subcut QWEEK 4 05/24/24 mg/3 mL) subcutaneous pen injector weeks #2.944 mL (Ozempic) diclofenac sodium 75 mg 75 mg PO BID PRN pain 30 days #60 06/10/24 tablet,delayed release tabs Allergies Allergy/AdvReac Type Severity Reaction Status Date / Time loratadine [From Claritin] Allergy Severe Hives Verified 06/12/24 13:21 Review of Systems Review of Systems: Yes all other systems are reviewed and are negative [facility] Past Medical History Surgical History (Updated 03/10/24 @ 16:59 by Sylvia Stoner MD) History of colonoscopy History of rotator cuff surgery Family History Family History (Updated 03/10/24 @ 16:30 by Sylvia Stoner MD) Mother Osteoporosis Father Hypertension Diabetes Social History Social History (Updated 03/10/24 @ 16:31 by Sylvia Stoner MD) Housing: House Alcohol intake: current Alcohol intake frequency: 0-2 drinks per day Alcohol type: beer Patient Tobacco Use Status: Former Tobacco user Tobacco use type: Cigarette e-Cigarette/Vaping Use: Never Used Second Hand Smoke Exposure: No Advance Directives: No Advance Directives Information Provided: No Do you have a plan to hurt others: No Plan service: Yes Current occupational status: employed Current occupational exposures/hazards: No Cognitive needs: No Hearing needs: No Vision needs: Yes Physical Exam Vital Signs: Vital Signs: Last Vital Signs Temp 98.2 F 06/12/24 13:18 Pulse 84 06/12/24 13:18 Resp 16 06/12/24 13:18 BP 133/71 06/12/24 13:18 Pulse Ox 99 06/12/24 13:18 O2 Del Method Room Air 06/12/24 13:18 BMI result Body Mass Index 28.2 Constitutional: ?Alert, oriented, speaking in full sentences HEENT: ?Normocephalic, atraumatic. ?Moist mucous membranes Eyes: ?PERRL, EOMI Neck: ?Supple, nontender Chest: ?No chest wall tenderness Respiratory: ?Lungs clear to auscultation, no increased work of breathing Cardio: ?Regular rate and rhythm, no murmur, 2+ radial and DP pulses symmetrically GI: ?Soft, nondistended, nontender Back: ?Normal range of motion, nontender Skin: ?No rash, no lesions Neuro: ?Alert and oriented to person, place and time, moves all 4 extremities, no focal deficits Extremities: ?No swelling or tenderness, full range of motion Psych: ?Calm, alert and cooperative, appropriate behavior Course Course Course Narrative: RME: 53-year-old male presents to ED for left-sided chest pain for the past 2 days radiating to the back. Patient denies any pleurisy, leg swelling, calf pain, coughing up blood. EKG labs chest x-ray ordered Medical Decision Making Medical Decision Making [facility] Narrative: This patient presents with chest pain, with symptoms suggestive of noncardiac chest pain. History without high risk features (e.g., not substernal, no exertional component, not relieved with rest). Minimal CAD risk factors. Exam without evidence of volume overload. EKG without signs of active ischemia. HEART score: 2. Plan to send troponin to evaluate for evidence of NSTEMI. Presentation not consistent with acute PE, pneumothorax, thoracic arotic dissection, cardiac effusion or tamponade. Additionally, the patient has an unremarkable troponin today with 2 weeks of constant chest discomfort, making this highly unlikely for ACS. I performed a bedside pocus of the heart which showed no effusion and no gross abnormalities of the heart. We treated the patient's symptoms with ketorolac. We gave him very strict return precautions for any worsening symptoms as well as resources for primary care follow-up. Admission/Observation Consideration of admission/observation: Escalation of care including admission/observation considered Lab Data [facility] Lab Attestation statement: I reviewed the patient's lab results. Unremarkable CBC with the exception of mild thrombocytopenia at 123, unremarkable coags, mild hyperglycemia, mild hypokalemia at 3.3, otherwise unremarkable CMP and negative troponin and negative BNP, negative respiratory swab. 06/12/24 13:18 06/12/24 13:18 Labs: Lab Results 06/12/24 06/12/24 Range/Units 13:17 13:18 WBC 7.2 (4.8-10.8) X10*3/uL RBC 4.53 L (4.60-5.80) X10*6/uL Hgb 14.0 (14.0-18.0) g/dl Hct 40.9 L (42.0-52.0) % MCV 90.3 (80.0-98.0) fL MCH 30.9 (27.0-33.0) pg MCHC 34.2 (31.0-36.0) g/dl RDW 12.7 (11.0-16.0) % Plt Count 123 L (160-400) X10*3/uL MPV 9.6 (9.4-12.4) fL Immature Gran % (Auto) 0.6 H (0.0-0.4) % Neut % (Auto) 72.1 (45-73) % Lymph % (Auto) 19.5 L (20-40) % Brewster % (Auto) 5.8 (2-11) % Eos % (Auto) 1.4 (0-4) % Baso % (Auto) 0.6 (0-2) % Lymph # (Auto) 1.4 (1.2-4.9) X10*3/uL Brewster # (Auto) 0.4 (0.1-1.2) X10*3/uL Eos # (Auto) 0.1 (0.0-0.4) X10*3/uL Baso # (Auto) 0.0 (0.0-0.2) X10*3/uL Abs Immat Gran (auto) 0.04 H (0.00-0.03) X10*3/uL Absolute Neuts (auto) 5.2 (2.0-8.3) x10*3/uL Absolute Nucleated RBC 0.000 (0.0-0.012) X10*3/uL Nucleated RBC % (auto) 0.0 (0.0-0.2) /100WBC PT 13.0 H (10.9-12.4) SEC INR 1.1 (0.9-1.1) APTT 30.5 (26.0-36.8) SEC Sodium 137 (135-145) mmol/L Potassium 3.3 (3.3-5.1) mmol/L Chloride 103 (96-108) mmol/L Carbon Dioxide 22 (22-29) mmol/L Anion Gap 15 (12-20) BUN 14 (9-16) mg/dL Creatinine 0.91 (0.5-1.4) mg/dL Estim Creat Clear Calc 94.5 Estimated GFR > 60 Random Glucose 164 H (60-115) mg/dL Calcium 9.4 (8.4-10.2) mg/dL Total Bilirubin 0.6 (0.0-1.0) mg/dL AST 29 (5-37) U/L ALT 35 (0-40) U/L Alkaline Phosphatase 104 (39-117) U/L Troponin I High Sens < 2.7 (<3.5-35.0) ng/L B-Natriuretic Peptide 12 (<100) pg/mL Total Protein 7.3 (6.5-8.0) g/dL Albumin 4.3 (3.5-5.0) g/dL Influenza Type A (PCR) NEGATIVE (Negative) Influenza Type B (PCR) NEGATIVE (Negative) RSV RNA Qual (PCR) NEGATIVE (Negative) SARS-CoV-2 RNA (RT-PCR) NEGATIVE (Negative) Independent Interpretation I performed an independent interpretation of an: EKG and Plain X-Ray (Chest x-ray per my independent interpretation shows no acute cardiopulmonary abnormalities.) Interpretation: Normal sinus rhythm at 90 beats per minute, normal axis, unremarkable intervals, no diagnostic ST or T-wave abnormalities, no prior for comparison. Scores Heart Score History: -0- slightly suspicious ECG: -0- normal Age: -1- >45 - <65 Risk factory: -1- 1 or 2 risk factors Troponin: -0- < or = normal limit Score: 2 Risk: 1.7% Discharge Plan Discharge Clinical Impression: Chest pain Qualifiers: Chest pain type: unspecified Qualified Code(s): R07.9 - Chest pain, unspecified Patient Disposition: Home, Self-Care Instructions: Chest Pain (ED) Additional Instructions: You have been evaluated in the emergency department for chest pain today.? Although it was determined that there was not an immediately life threatening cause for your chest pain, it is very important that you follow up with your primary care physician.? Further cardiac (heart) testing may be recommended. Please be aware that if your condition changes or worsens in any way while you are at home, you should return to the emergency department immediately for further care.? This is especially true for worsening / recurrent pain, shortness of breath, vomiting, sweating, palpitations, lightheadedness or passing out.? These may be signs of an emergency condition and you should call 911 if these symptoms occur. Thank you for choosing us for your care. Prescriptions: No Action methocarbamol 750 mg tablet 750 mg PO TID 30 Days Qty: 90 0RF tizanidine 4 mg capsule 4 mg PO BEDTIME PRN (Reason: muscle spasticity) 7 Days Qty: 7 0RF tamsulosin 0.4 mg capsule 0.8 mg PO DAILY 90 Days Qty: 180 0RF Ozempic 0.25 mg or 0.5 mg (2 mg/3 mL) pen injector 0.5 mg subcut QWEEK 28 Days Qty: 2.944 0RF diclofenac sodium 75 mg tablet,delayed release (DR/EC) 75 mg PO BID PRN (Reason: pain) 30 Days Qty: 60 0RF finasteride 5 mg tablet 5 mg PO DAILY Spiriva Respimat 1.25 mcg/actuation mist 2 puff inhalation DAILY Jardiance 10 mg tablet 10 mg PO DAILY fluticasone propionate 220 mcg/actuation HFA aerosol inhaler 2 puff inhalation BID losartan-hydrochlorothiazide 100-12.5 mg tablet 1 tab PO DAILY 90 Days Qty: 90 1RF metformin 500 mg tablet extended release 24 hr 500 mg PO BID 90 Days Qty: 180 2RF mirabegron [Myrbetriq] 25 mg tablet extended release 24 hr 25 mg PO DAILY 30 Days Qty: 30 1RF Referrals: [facility] [Provider Group] Stand Alone Forms: Work/School Release Print Language: Burundian
[2024-06-12 13:22] LABS: MANUAL DIFF FLAG NO
[2024-06-12 13:24] LABS: Basophils Percent Auto 0.6 % (0-2); Eosinophils Absolute Auto 0.1 X10*3/uL (0.0-0.4); Eosinophils Percent Auto 1.4 % (0-4); Hematocrit 40.9 % (42.0-52.0); Imm Gran Abs Auto 0.04 X10*3/uL (0.00-0.03); Imm Gran Pct Auto 0.6 % (0.0-0.4); Lymphocytes Absolute Auto 1.4 X10*3/uL (1.2-4.9); Lymphocytes Percent Auto 19.5 % (20-40); Mean Corpuscular HGB Conc 34.2 g/dl (31.0-36.0); Mean Corpuscular Hemoglobin 30.9 pg (27.0-33.0); Mean Corpuscular Volume 90.3 fL (80.0-98.0); Mean Platelet Volume 9.6 fL (9.4-12.4); Monocytes Absolute Auto 0.4 X10*3/uL (0.1-1.2); Monocytes Percent Auto 5.8 % (2-11); Neutrophils Absolute Auto 5.2 x10*3/uL (2.0-8.3); Neutrophils Percent Auto 72.1 % (45-73); Platelet Count 123 X10*3/uL (160-400); Red Blood Count 4.53 X10*6/uL (4.60-5.80); Red Cell Distribution Width 12.7 % (11.0-16.0); White Blood Count 7.2 X10*3/uL (4.8-10.8)
[2024-06-12 13:29] LABS: INTERNATIONAL NORM RATIO 1.1 (0.9-1.1)
[2024-06-12 13:32] LABS: Partial Thromboplastin Time 30.5 SEC (26.0-36.8)
[2024-06-12 13:43] LABS: Alanine Aminotransferase 35 U/L (0-40); Albumin Level 4.3 g/dL (3.5-5.0); Alkaline Phosphatase 104 U/L (39-117); Anion Gap 15 (12-20); Aspartate Amino Transferase 29 U/L (5-37); Bilirubin Total 0.6 mg/dL (0.0-1.0); Blood Urea Nitrogen 14 mg/dL (9-16); Calcium 9.4 mg/dL (8.4-10.2); Carbon Dioxide 22 mmol/L (22-29); Chloride 103 mmol/L (96-108); Creatinine Clr Calc Pharmacy 94.5; Estimated Glomerular Filt Rate > 60; Glucose Random 164 mg/dL (60-115); Potassium 3.3 mmol/L (3.3-5.1); Sodium 137 mmol/L (135-145); Total Protein 7.3 g/dL (6.5-8.0)
[2024-06-12 13:47] LABS: B Type Natriuretic Peptide 12 pg/mL (<100)
[2024-06-12 13:55] LABS: Troponin-I High Sensitivity < 2.7 ng/L (<3.5-35.0)
[2024-06-12 14:13] LABS: Influenza A PCR NEGATIVE (Negative); Influenza B PCR NEGATIVE (Negative); Resp Syncy Virus RNA Qual PCR NEGATIVE (Negative); SARS COV2 PCR INHOUSE NEGATIVE (Negative)
[2024-06-12] MEDS: Ketorolac Tromethamine 15 MG/ML VIAL IM (15:31)
[2024-06-12 15:32] VITALS: BP 146/82; PULSE 88; RESP 20; TEMP 36.8; O2SAT 97
== END 2024-06-12 15:32 | disposition home or self-care (01) ==
PROVIDERS: Physician Assistant; Emergency Provider Emergency Medicine; PCP Internal Medicine
DX: R07.89 Other chest pain (principal); E11.9 Type 2 diabetes mellitus without complications; J44.9 Chronic obstructive pulmonary disease, unspecified; M54.50 Low back pain, unspecified; R94.31 Abnormal electrocardiogram [ECG] [EKG]; R06.02 Shortness of breath; Z79.899 Other long term (current) drug therapy; Z03.818 Encounter for observation for suspected exposure to other biological agents ruled out
CPT/HCPCS: 0241U; 71045; 80053; 83880; 84484; 85025; 85610; 85730; 93005; 96372; 99283; 99284; J1885

== ENCOUNTER → 2024-06-12 12:55 | Outpatient (BNV) | payer OTHER, SELFPAY | PROVIDERS: Emergency Provider Emergency Medicine; PCP Internal Medicine; Visit Provider Internal Medicine Cardiovascular Disease | DX: R94.31 Abnormal electrocardiogram [ECG] [EKG] (principal); R07.9 Chest pain, unspecified | CPT/HCPCS: 93010 ==

== ENCOUNTER → 2024-06-12 12:57 | Outpatient (BNV) | payer OTHER, SELFPAY | PROVIDERS: PCP Internal Medicine; Visit Provider Radiology Diagnostic Radiology | DX: R07.9 Chest pain, unspecified (principal) | CPT/HCPCS: 71045 ==

== ENCOUNTER 2024-06-14 09:37 | Emergency (ER) | payer OTHER, SELFPAY ==
--- NOTE | 2024-06-14 09:42 | ECG_ITS ---
Test Reason : CP Blood Pressure : */* mmHG Vent. Rate : 99 BPM Atrial Rate : 99 BPM P-R Int : 144 ms QRS Dur : 86 ms QT Int : 346 ms P-R-T Axes : 58 46 65 degrees QTcB Int : 444 ms Normal sinus rhythm Normal ECG When compared with ECG of 12-Jun-2024 13:12, No significant change was found Referred By: Generic ED Physician Electronically Signed By: Darryn Stock
[2024-06-14 10:06] VITALS: BP 129/78; PULSE 96; RESP 16; TEMP 36.8; O2SAT 99; BMI 28.2
[2024-06-14 10:29] LABS: MANUAL DIFF FLAG NO
[2024-06-14 10:34] LABS: Basophils Percent Auto 0.4 % (0-2); Eosinophils Absolute Auto 0.2 X10*3/uL (0.0-0.4); Eosinophils Percent Auto 2.5 % (0-4); Hematocrit 39.9 % (42.0-52.0); Hemoglobin 13.8 g/dl (14.0-18.0); Imm Gran Abs Auto 0.04 X10*3/uL (0.00-0.03); Imm Gran Pct Auto 0.6 % (0.0-0.4); Lymphocytes Absolute Auto 1.2 X10*3/uL (1.2-4.9); Mean Corpuscular HGB Conc 34.6 g/dl (31.0-36.0); Mean Corpuscular Hemoglobin 30.9 pg (27.0-33.0); Mean Corpuscular Volume 89.5 fL (80.0-98.0); Mean Platelet Volume 9.9 fL (9.4-12.4); Monocytes Absolute Auto 0.4 X10*3/uL (0.1-1.2); Monocytes Percent Auto 5.7 % (2-11); Neutrophils Absolute Auto 5.1 x10*3/uL (2.0-8.3); Neutrophils Percent Auto 73.8 % (45-73); Platelet Count 129 X10*3/uL (160-400); Red Blood Count 4.46 X10*6/uL (4.60-5.80); Red Cell Distribution Width 12.6 % (11.0-16.0); White Blood Count 6.9 X10*3/uL (4.8-10.8)
[2024-06-14 10:46] LABS: Alanine Aminotransferase 44 U/L (0-40); Albumin Level 4.2 g/dL (3.5-5.0); Alkaline Phosphatase 106 U/L (39-117); Anion Gap 18 (12-20); Aspartate Amino Transferase 40 U/L (5-37); Bilirubin Direct 0.2 mg/dL (0.0-0.5); Bilirubin Total 0.8 mg/dL (0.0-1.0); Blood Urea Nitrogen 18 mg/dL (9-16); Calcium 9.5 mg/dL (8.4-10.2); Carbon Dioxide 23 mmol/L (22-29); Chloride 103 mmol/L (96-108); Creatinine Clr Calc Pharmacy 69.9; Estimated Glomerular Filt Rate 60; Glucose Random 219 mg/dL (60-115); Lipase 39 U/L (8-78); Potassium 3.9 mmol/L (3.3-5.1); Sodium 140 mmol/L (135-145); Total Protein 7.1 g/dL (6.5-8.0)
[2024-06-14 10:52] LABS: Troponin-I High Sensitivity < 2.7 ng/L (<3.5-35.0)
[2024-06-14 11:38] LABS: Influenza A PCR NEGATIVE (Negative); Influenza B PCR NEGATIVE (Negative); Resp Syncy Virus RNA Qual PCR NEGATIVE (Negative); SARS COV2 PCR INHOUSE NEGATIVE (Negative)
--- NOTE | 2024-06-14 13:10 | ED_ITS ---
HPI - Chest Pain General Chief Complaint: Chest Pain Stated Complaint: Chest pain Time Seen by Provider: 06/14/24 18:44 Related Data Home Medications ?Medication ?Instructions ?Recorded ?Confirmed empagliflozin 10 mg tablet 10 mg PO DAILY 10/15/23 03/10/24 (Jardiance) finasteride 5 mg tablet 5 mg PO DAILY 10/15/23 03/10/24 fluticasone propionate 220 2 puff inhalation BID 10/15/23 03/10/24 mcg/actuation HFA aerosol inhaler tiotropium bromide 1.25 2 puff inhalation DAILY 10/15/23 03/10/24 mcg/actuation mist for inhalation (Spiriva Respimat) Previous Rx's ?Medication ?Instructions ?Recorded losartan 100 1 tab PO DAILY 90 days #90 tabs 03/10/24 mg-hydrochlorothiazide 12.5 mg tablet metformin 500 mg tablet,extended 500 mg PO BID 90 days #180 tabs 03/10/24 release 24 hr methocarbamol 750 mg tablet 750 mg PO TID 30 days #90 tabs 05/11/24 tizanidine 4 mg capsule 4 mg PO BEDTIME PRN muscle 05/13/24 spasticity 7 days #7 caps mirabegron 25 mg tablet,extended 25 mg PO DAILY 30 days #30 tabs 05/16/24 release 24 hr (Myrbetriq) tamsulosin 0.4 mg capsule 0.8 mg (2 x 0.4 mg) PO DAILY 90 05/21/24 days #180 caps semaglutide 0.25 mg or 0.5 mg (2 0.5 mg (0.736 mL) subcut QWEEK 4 05/24/24 mg/3 mL) subcutaneous pen injector weeks #2.944 mL (Ozempic) diclofenac sodium 75 mg 75 mg PO BID PRN pain 30 days #60 06/10/24 tablet,delayed release tabs Allergies Allergy/AdvReac Type Severity Reaction Status Date / Time loratadine [From Claritin] Allergy Severe Hives Verified 06/14/24 10:11 [facility] Past Medical History Surgical History (Updated 03/10/24 @ 16:59 by Sylvia Stoner MD) History of colonoscopy History of rotator cuff surgery Family History Family History (Updated 03/10/24 @ 16:30 by Sylvia Stoner MD) Mother Osteoporosis Father Hypertension Diabetes Social History Social History (Updated 03/10/24 @ 16:31 by Sylvia Stoner MD) Housing: House Alcohol intake: current Alcohol intake frequency: 0-2 drinks per day Alcohol type: beer Patient Tobacco Use Status: Former Tobacco user Tobacco use type: Cigarette e-Cigarette/Vaping Use: Never Used Second Hand Smoke Exposure: No Advance Directives: No Advance Directives Information Provided: No service: Yes Current occupational status: employed Current occupational exposures/hazards: No Cognitive needs: No Hearing needs: No Vision needs: Yes Physical Exam 2 Vital Signs: Vital Signs: Last Vital Signs Temp 98.3 F 06/14/24 10:06 Pulse 96 06/14/24 10:06 Resp 16 06/14/24 10:06 BP 129/78 06/14/24 10:06 Pulse Ox 99 06/14/24 10:06 O2 Del Method Room Air 06/14/24 10:06 BMI result Body Mass Index 28.2 Course Course Course Narrative: This is a Rapid Medical Examination (RME) performed by Karen Segura PA-C in triage. Full HPI, ROS, assessment and treatment plan per primary provider in the Main ED. 63 yo male hx DM and HTN here for eval of continued left rib/ chest discomfort radiating to back. seen here 2-3 days ago w/ negative work up, was advised to come back if pain persisted. pain is not worse w /movement or exertion. assoc dizziness from pain. no N/V. taking tylenol w/o improvement. Plan: labs, ekg Reevaluation(s) Reevaluation #1: Patient left the emergency department before myself or any of the other clinicians could review or explain physical exam findings, test results, need or lack there of for additional testing, treatment options, or a treatment plan. Medical Decision Making Lab Data 06/14/24 10:18 06/14/24 10:18 Labs: Lab Results 06/14/24 Range/Units 10:18 WBC 6.9 (4.8-10.8) X10*3/uL RBC 4.46 L (4.60-5.80) X10*6/uL Hgb 13.8 L (14.0-18.0) g/dl Hct 39.9 L (42.0-52.0) % MCV 89.5 (80.0-98.0) fL MCH 30.9 (27.0-33.0) pg MCHC 34.6 (31.0-36.0) g/dl RDW 12.6 (11.0-16.0) % Plt Count 129 L (160-400) X10*3/uL MPV 9.9 (9.4-12.4) fL Immature Gran % (Auto) 0.6 H (0.0-0.4) % Neut % (Auto) 73.8 H (45-73) % Lymph % (Auto) 17.0 L (20-40) % [place] % (Auto) 5.7 (2-11) % Eos % (Auto) 2.5 (0-4) % Baso % (Auto) 0.4 (0-2) % Lymph # (Auto) 1.2 (1.2-4.9) X10*3/uL [place] # (Auto) 0.4 (0.1-1.2) X10*3/uL Eos # (Auto) 0.2 (0.0-0.4) X10*3/uL Baso # (Auto) 0.0 (0.0-0.2) X10*3/uL Abs Immat Gran (auto) 0.04 H (0.00-0.03) X10*3/uL Absolute Neuts (auto) 5.1 (2.0-8.3) x10*3/uL Absolute Nucleated RBC 0.000 (0.0-0.012) X10*3/uL Nucleated RBC % (auto) 0.0 (0.0-0.2) /100WBC Sodium 140 (135-145) mmol/L Potassium 3.9 (3.3-5.1) mmol/L Chloride 103 (96-108) mmol/L Carbon Dioxide 23 (22-29) mmol/L Anion Gap 18 (12-20) BUN 18 H (9-16) mg/dL Creatinine 1.23 (0.5-1.4) mg/dL Estim Creat Clear Calc 69.9 Estimated GFR 60 Random Glucose 219 H (60-115) mg/dL Calcium 9.5 (8.4-10.2) mg/dL Total Bilirubin 0.8 (0.0-1.0) mg/dL Direct Bilirubin 0.2 (0.0-0.5) mg/dL AST 40 H (5-37) U/L ALT 44 H (0-40) U/L Alkaline Phosphatase 106 (39-117) U/L Troponin I High Sens < 2.7 (<3.5-35.0) ng/L Total Protein 7.1 (6.5-8.0) g/dL Albumin 4.2 (3.5-5.0) g/dL Lipase 39 (8-78) U/L Influenza Type A (PCR) NEGATIVE (Negative) Influenza Type B (PCR) NEGATIVE (Negative) RSV RNA Qual (PCR) NEGATIVE (Negative) SARS-CoV-2 RNA (RT-PCR) NEGATIVE (Negative) Discharge Plan Discharge Clinical Impression: Chest pain Patient Disposition: Left W/O Completing Treatment Prescriptions: No Action methocarbamol 750 mg tablet 750 mg PO TID 30 Days Qty: 90 0RF tizanidine 4 mg capsule 4 mg PO BEDTIME PRN (Reason: muscle spasticity) 7 Days Qty: 7 0RF tamsulosin 0.4 mg capsule 0.8 mg PO DAILY 90 Days Qty: 180 0RF Ozempic 0.25 mg or 0.5 mg (2 mg/3 mL) pen injector 0.5 mg subcut QWEEK 28 Days Qty: 2.944 0RF diclofenac sodium 75 mg tablet,delayed release (DR/EC) 75 mg PO BID PRN (Reason: pain) 30 Days Qty: 60 0RF finasteride 5 mg tablet 5 mg PO DAILY Spiriva Respimat 1.25 mcg/actuation mist 2 puff inhalation DAILY Jardiance 10 mg tablet 10 mg PO DAILY fluticasone propionate 220 mcg/actuation HFA aerosol inhaler 2 puff inhalation BID losartan-hydrochlorothiazide 100-12.5 mg tablet 1 tab PO DAILY 90 Days Qty: 90 1RF metformin 500 mg tablet extended release 24 hr 500 mg PO BID 90 Days Qty: 180 2RF mirabegron [Myrbetriq] 25 mg tablet extended release 24 hr 25 mg PO DAILY 30 Days Qty: 30 1RF Discharge Date/Time: 06/14/24 19:00
--- OUTSIDE RECORDS SUMMARY | 2024-06-14 17:41 | XMS_ITS | Clinical Summary ---
Author Organization [address] [place] [address] [place] [id number] Phone Care Team Providers Care Coil Repair Technician Name Role Phone Sylvia Stoner MD Primary Care Provider [phone] Allergies Active Allergy Reactions Criticality Noted Date Comments Loratadine Shortness of breath,Wheezing High 02/10/2019 Other Shortness of breath,Wheezing,Runny nose High 09/18/2017 Seasonal allergies Medications Medication Sig Dispensed Refills Start Date End Date Status empagliflozin (Jardiance) 10 mg tablet Take 1 tablet (10 mg total) by mouth 1 (one) time each day. Active losartan-hydroCHLORO thiazide (HYZAAR) 100-12.5 mg per tablet Take 1 tablet by mouth 1 (one) time each day. Active semaglutide (Ozempic) 0.25 mg or 0.5 mg(2 mg/1.5 mL) injection pen Inject 0.25 mg under the skin every 7 (seven) days. Active metFORMIN (GLUCOPHAGE) 500 mg tablet Take 2 tablets (1,000 mg total) by mouth 2 (two) times a day with meals. Active fluticasone HFA (Flovent HFA) 220 mcg/actuation inhaler Inhale 1 puff by mouth 2 (two) times a day. Rinse mouth with water after use to reduce aftertaste and incidence of candidiasis. Do not swallow. Active tiotropium (Spiriva Respimat) 1.25 mcg/actuation inhalation spray Inhale 2 puffs by mouth 1 (one) time each day. Active amitriptyline (ELAVIL) 10 mg tablet Take 4 tablets (40 mg total) by mouth at bedtime. Active tamsulosin (FLOMAX) 0.4 mg 24 hr capsule Take 1 capsule (0.4 mg total) by mouth 1 (one) time each day. Capsules should be taken 30 minutes following the same meal each day. Active finasteride (PROSCAR) 5 mg tablet Take 1 tablet (5 mg total) by mouth 1 (one) time each day. Do not crush, chew, or split. Active albuterol HFA (PROAIR HFA ; PROVENTIL HFA ; VENTOLIN HFA) 90 mcg/actuation inhaler Inhale 2 puffs by mouth every 6 (six) hours if needed for wheezing. Active Active Problems Problem Noted Date Diagnosed Date Asthma 02/16/2024 Colon polyp 02/16/2024 Overview (02/16/2024): 06/09/13 colonoscopy, Dr. Benjamin White 02/16/2024 Gout 02/16/2024 Hypertension 02/16/2024 Overview (02/16/2024): Last Assessment & Plan: Today the blood pressure is elevated but he states when he checks it at home it is in the 130s usually. I did ask him to check his blood pressure several times a week when his been sitting for 15 to 20 minutes. I explained how to do this. I did tell him I would like to see the systolic pressure below 140 and closer to 130. I told him if the blood pressure is running higher than this to either call his primary physician or us. I also spoke to him about diet decreasing his salt intake. Lung nodule 02/16/2024 Overview (02/16/2024): Multiple lung nodules. CT 09/10/16: stable from [address] should be repeated in 18-24 months ~03/2018, ordered follow up exam Neuropathy of both feet 02/16/2024 Vertigo 02/16/2024 Shortness of breath on exertion 06/19/2022 Overview (02/16/2024): Last Assessment & Plan: As I noted he has had shortness of breath on exertion for some time. He did smoke however he stopped over 20 years ago. His lungs are clear on exam and there is nothing to suggest significant valvular disease. Hemoglobin in the past was unremarkable. He does have several risk factors for coronary disease including diabetes. It is not clear if the shortness of breath is an anginal equivalent. I am going to schedule for stress test. I did tell him though, if he started having exertional symptoms, that I described to him to call. I did tell him if he had any discomforts in his chest that lasted over 15 to 20 minutes to call 911. Also did explain to her that times of diabetic may not feel chest discomfort he was having a pheresis or nausea vomiting this could also be an anginal equivalent. Sinus tachycardia 06/18/2022 Overview (02/16/2024): Last Assessment & Plan: The ECG from May demonstrated the heart rate was 99. Today in the office his ECG demonstrates a heart rate to be 95. At this time I do not see any in the heart rate has been more rapid than this. Type 2 diabetes mellitus with obesity 06/13/2022 BPH with urinary obstruction 11/01/2021 Overview (02/16/2024): [facility] Obstructive sleep apnea 12/31/2020 Overview (02/16/2024): [facility] Home Sleep Apnea Test: Date 12/17/2020; Wt 190#; BMI 27; AMADEO (AHI) 1, AI 6; HI 0; Unclassified apneas 0; Obstructive apneas 2; Central apneas 1; Mixed apneas 0; hypopneas 33; average oxygen saturation 93% (lowest 77% without saturations <88% for 5% or more of study) - Obstructive Sleep Apnea - mild; mostly hypopneas; without sleep related hypoventilation by 2020 home sleep apnea test. COPD with emphysema 10/08/2020 Overview (02/16/2024): Last Assessment & Plan: Patient with hx of asthma and former smoking shows mild emphesema on CT and PFTs. Elevated LFTs 09/17/2020 Fatty liver 09/17/2020 Type 2 diabetes mellitus wit h hyperglycemia, without long-term current use of insulin 08/30/2020 COVID-19 08/29/2020 Diabetes mellitus type 2 with neurological manif estations 01/20/2019 Mild anemia 05/07/2017 Allergic rhinitis 02/26/2017 Genital herpes simplex 02/26/2017 Encounters Date Type Department Care Team Description 04/01/2024 Telephone [facility] - [address] [facility] [address] [place] [address] Addis Newberry NP No Show from Last 3 Months Immunizations Name Administration Dates Next Due Influenza Quadravalent, MDCK , 0.5ml, preservative free (Flucelvax) 6mo and older 08/03/2023,01/20/2019 Influenza Quadravalent, MDCK , 0.5ml, with preservative (Flucelvax) 6mo and older 03/25/2017 Influenza trivalent, with pr eservative (Fluzone; Afluria) 6mo and older 03/18/2020,06/19/2015,03/31/2013,03/24 Pneumococcal polysaccharide 23 valent (Pneumovax 23) 2yo and older 01/18/2009 Td Tetanus diptheria (Tdvax) 7yo and older 06/16/2002 Tdap Tetanus diptheria acell ular pertussis (Boostrix; Adacel) 7yo and older 08/03/2023,03/31/2013 Surgical History Surgery Date Site/Laterality Comments ROTATOR CUFF REPAIR 05/11/2013 - 05/10/2014 Bilateral Medical History Medical History Date Comments Shortness of breath on exertion 06/19/2022 Sinus tachycardia 06/18/2022 Type 2 diabetes mellitus with obesity ([facility]) 06/13/2022 Sleep apnea 12/31/2020 Obstructive COPD (chronic obstructive pulmonary disease) ([facility]) 10/08/2020 w/emphysema Elevated LFTs 09/17/2020 Asthma Vertigo Family History Medical History Relation Name Comments DM2 Father Hypertension Father Stroke Father Relation Name Status Comments Father Social History Tobacco Use Types Packs/Day Years Used Date Smoking Tobacco: Former Cigarettes Passive Smoke Exposure: Never Smokeless Tobacco: Current Chew Tobacco Cessation:Ready to Q uit: Not Asked; Counseling Given: Not Answered Alcohol Use Standard Drinks/Week Comments Yes 2 (1 standard drink = 0.6 oz pur e alcohol) Sex and Gender Information Value Date Recorded Sex Assigned at Not on file Gender Identity Not on file Sexual Orientation Not on file Obstetrics History Last Filed Vital Signs Vital Sign Reading Time Taken Comments Blood Pressure 138/81 08/18/2023 3:51 PM EDT Aut o Cuff Pulse 96 08/18/2023 3:51 PM EDT Temperature - - Respiratory Rate - - Oxygen Saturation - - Inhaled Oxygen Concentration - - Weight 90.3 kg (199 lb) 08/18/2023 3:51 PM EDT Height 177.8 cm (5' 10 ) 08/18/2023 3:51 PM EDT Body Mass Index 28.55 08/18/2023 3:51 PM EDT Plan of Treatment Health Maintenance Due Date Last Done Comments Diabetes: Annual Retina Eye Exam 11/25/1971 Pneumococcal Vaccine: Pediatrics (0 to 5 Years) and At-Risk Patients (6 to 64 Years) (2 of 2 - PCV) 01/18/2010 01/18/2009 Zoster Vaccines (1 of 2) 11/25/2011 RSV Immunization Patients 60+ Years Old (1 - Risk 60-74 years 1-dose series) 2021 Depression Screening 04/19/2022 HIV Screening 04/19/2022 Social Influencers of Health Screening 04/19/2022 Diabetes: Annual Urine Albumin-Creatinine Ratio (uACR) 05/20/2023 05/20/2022 Diabetes: Annual GFR (Glomerular Filtration Rate) 05/20/2023 05/20/2022 Hypertension/CHF/CAD Annual BMP Blood Test 05/20/2023 05/20/2022 Diabetes: Blood Sugar Control Test (HGBA1C) 06/10/2023 12/08/2022 COVID-19 Vaccine ( season) 2024 10/29/2020, 09/26/2020 Influenza Vaccine (#1) 2024 , 03/18/2020, 01/20/2019, Additional history exists Colorectal Cancer Screening: Colonoscopy 06/20/2024 06/20/2019 Diabetes: Annual Foot Exam 08/02/2024 08/03/2023 Cholesterol Screening (Lipid Panel) 05/20/2027 05/20/2022 DTaP,Tdap,and Td Vaccines (4 - Td or Tdap) 08/02/2033 08/03/2023, 03/31/2013, 06/16/2002 Hepatitis C Screening Completed 05/02/2019 HIB Vaccines Aged Out No longer eligi ble based on patient's age to complete this topic HPV Vaccines Aged Out No longer eligi ble based on patient's age to complete this topic Hepatitis A Vaccines Aged Out No long er eligible based on patient's age to complete this topic Hepatitis B Vaccines Aged Out No long er eligible based on patient's age to complete this topic IPV Vaccines Aged Out No longer eligi ble based on patient's age to complete this topic MMR Vaccines Aged Out No longer eligi ble based on patient's age to complete this topic Meningococcal ACWY Vaccine Aged Out N o longer eligible based on patient's age to complete this topic RSV Immunization Patients Under 20 months Aged Out No longer eligible based on patient's age to complete this topic Varicella Vaccines Aged Out No longer eligible based on patient's age to complete this topic Procedures Procedure Name Priority Date/Time Associated Diagnosis Comments DIABETES FOOT EXAM Routine 08/03/2023 HEMOGLOBIN A1C Routine 12/08/2022 URINE ALBUMIN CREATININE RATIO Routine 05/20/2022 ANNUAL BMP BLOOD TEST Routine 05/20/2022 LIPID PANEL Routine 05/20/2022 COLONOSCOPY Routine 06/20/2019 HEPATITIS C SCREENING Routine 05/02/2019 from Last 3 Months or Most Recently Relevant to Health Maintenance Results * Diabetes Foot Exam (08/03/2023) Pathologist [facility] Diabetes: Annual Foot Exam abstracted Historical Provider MD AZAR POLK E * (ABNORMAL) Hemoglobin A1c (12/08/2022) Pathologist [facility] Hemoglobin A1C 6.6(A) 6.5 % Blood Venous blood specimen / Unknown Historical Provider LAB BLOOD ORDERAB LES * Urine Albumin Creatinine Ratio (05/20/2022) Pathologist [facility] Urine Albumin Creatinine Ratio abstracted Historical Provider MD AZAR POLK * Annual BMP Blood Test (05/20/2022) [facility] Annual BMP Blood Test abstarcted Historical Provider MD ASKEW ARLETTESPRING E * Lipid panel (05/20/2022) [facility] LDL/HDL Ratio 3 0 - 4 Triglycerides 144 0 - 150 mg/dL Cholesterol 150 0 - 200 mg/dL HDL 52 40 mg/dL LDL Cholesterol 70 0 - 100 mg/dL Blood Venous blood specimen / Unknown Historical Provider LAB BLOOD ORDERAB LES * Colonoscopy (06/20/2019) [facility] Colonoscopy abstracted, no interpretation Anatomical Region Laterality Modality Other Historical Provider MD ASKEW [employer] * Hepatitis C Screening (05/02/2019) [facility] Hepatitis C Screening abstracted Historical Provider MD ASKEW [employer] E from Last 3 Months or Most Recently Relevant to Health Maintenance Care Teams Coil Repair Technician Relationship Specialty Start Date End Date Sylvia Stoner MD [address] [place] [address] , [address] [facility]A: [facility] ROSY Zazueta PCP - General Internal Medicine 03/11/24
== END 2024-06-14 19:00 | disposition left against medical advice (07) ==
PROVIDERS: Emergency Provider Emergency Medicine; PCP Internal Medicine
DX: R07.89 Other chest pain (principal); M54.50 Low back pain, unspecified; Z03.818 Encounter for observation for suspected exposure to other biological agents ruled out; Z79.899 Other long term (current) drug therapy; Z87.891 Personal history of nicotine dependence
CPT/HCPCS: 0241U; 36415; 80048; 80076; 83690; 84484; 85025; 93005; 99283

== ENCOUNTER → 2024-06-14 09:42 | Outpatient (BNV) | payer OTHER, SELFPAY | PROVIDERS: PCP Internal Medicine; Visit Provider Internal Medicine Cardiovascular Disease | DX: R07.9 Chest pain, unspecified (principal) | CPT/HCPCS: 93010 ==

== ENCOUNTER 2024-06-15 07:23 | Emergency (ER) | payer OTHER, SELFPAY ==
--- NOTE | ~2024-06-15 | XR_ITS ---
EXAMINATION: XR CHEST CLINICAL INFORMATION: chest pain COMPARISON: June 12, 2024. TECHNIQUE: Frontal view of the chest was obtained. FINDINGS: Linear opacity in the peripheral right mid hemithorax. No pleural effusion or pneumothorax. No gross consolidation. No hyperinflation. Cardiomediastinal silhouette is normal in size. Multilevel thoracic spondylosis. XR/XR chest 1V IMPRESSION: Subsegmental atelectasis versus scar, right lung. Electronically signed by: Kamlesh Chery MD 06/15/2024 09:38 AM EST
--- NOTE | 2024-06-15 07:26 | ECG_ITS ---
Test Reason : chest pain Blood Pressure : */* mmHG Vent. Rate : 100 BPM Atrial Rate : 100 BPM P-R Int : 140 ms QRS Dur : 76 ms QT Int : 334 ms P-R-T Axes : 62 44 58 degrees QTcB Int : 430 ms Normal sinus rhythm Low voltage QRS Borderline ECG When compared with ECG of 14-Jun-2024 09:45, No significant change was found Referred By: Generic ED Physician Electronically Signed By: Darryn Stock
[2024-06-15 07:33] VITALS: BP 144/73; PULSE 102; RESP 20; TEMP 36.1; O2SAT 100; BMI 28.2
[2024-06-15 07:55] LABS: MANUAL DIFF FLAG NO
[2024-06-15 07:56] LABS: Basophils Percent Auto 0.6 % (0-2); Eosinophils Absolute Auto 0.2 X10*3/uL (0.0-0.4); Eosinophils Percent Auto 2.5 % (0-4); Hematocrit 40.5 % (42.0-52.0); Hemoglobin 14.1 g/dl (14.0-18.0); Imm Gran Abs Auto 0.03 X10*3/uL (0.00-0.03); Imm Gran Pct Auto 0.5 % (0.0-0.4); Lymphocytes Absolute Auto 1.3 X10*3/uL (1.2-4.9); Lymphocytes Percent Auto 19.8 % (20-40); Mean Corpuscular HGB Conc 34.8 g/dl (31.0-36.0); Mean Corpuscular Hemoglobin 31.1 pg (27.0-33.0); Mean Corpuscular Volume 89.2 fL (80.0-98.0); Mean Platelet Volume 10.2 fL (9.4-12.4); Monocytes Absolute Auto 0.5 X10*3/uL (0.1-1.2); Monocytes Percent Auto 7.4 % (2-11); Neutrophils Absolute Auto 4.5 x10*3/uL (2.0-8.3); Neutrophils Percent Auto 69.2 % (45-73); Platelet Count 135 X10*3/uL (160-400); Red Blood Count 4.54 X10*6/uL (4.60-5.80); Red Cell Distribution Width 12.6 % (11.0-16.0); White Blood Count 6.5 X10*3/uL (4.8-10.8)
[2024-06-15 08:12] LABS: Alanine Aminotransferase 49 U/L (0-40); Albumin Level 4.2 g/dL (3.5-5.0); Alkaline Phosphatase 117 U/L (39-117); Anion Gap 14 (12-20); Aspartate Amino Transferase 46 U/L (5-37); Bilirubin Direct 0.3 mg/dL (0.0-0.5); Bilirubin Total 0.7 mg/dL (0.0-1.0); Blood Urea Nitrogen 17 mg/dL (9-16); Calcium 8.6 mg/dL (8.4-10.2); Carbon Dioxide 21 mmol/L (22-29); Chloride 107 mmol/L (96-108); Creatinine Clr Calc Pharmacy 75.4; Estimated Glomerular Filt Rate > 60; Glucose Random 159 mg/dL (60-115); Lipase 32 U/L (8-78); Potassium 4.3 mmol/L (3.3-5.1); Sodium 138 mmol/L (135-145); Total Protein 7.3 g/dL (6.5-8.0)
[2024-06-15 08:24] LABS: Troponin-I High Sensitivity < 2.7 ng/L (<3.5-35.0)
--- NOTE | 2024-06-15 08:35 | ED.CHESTPAIN ---
HPI - Chest Pain General Chief Complaint: Chest Pain Stated Complaint: Chest pain Time Seen by Provider: 06/15/24 08:34 Source: patient, RN notes reviewed and old records reviewed Mode of arrival: ambulatory Limitations: no limitations History of Present Illness ED Provider: Neli MÉNDEZ narrative: Patient is a 63-year-old male with history of cwh-qneewkf-rmqrruxel diabetes, COPD not on oxygen, hypertension and BPH presenting to the ED with complaint of ongoing left-sided chest pain. Patient was seen in this ED on 06/12 for same complaint. He states the pain has persisted, is constant. Describes as a stabbing pain going through to his back. Denies associated shortness of breath or difficulty breathing, palpitations. Denies any nausea or vomiting. Denies diaphoresis. Denies recent calf pain or swelling. States he has applied ice to the area and used Tylenol without relief. 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 MD complaint: chest pain Onset (ago): day(s) Timing of current episode: constant Pain location: left chest Pain radiation: back Severity: severe Quality: sharp Relieving factors: nothing Exacerbating factors: nothing Treatment prior to arrival: other (ice) Related Data Home Medications ?Medication ?Instructions ?Recorded ?Confirmed empagliflozin 10 mg tablet 10 mg PO DAILY 10/15/23 03/10/24 (Jardiance) finasteride 5 mg tablet 5 mg PO DAILY 10/15/23 03/10/24 fluticasone propionate 220 2 puff inhalation BID 10/15/23 03/10/24 mcg/actuation HFA aerosol inhaler tiotropium bromide 1.25 2 puff inhalation DAILY 10/15/23 03/10/24 mcg/actuation mist for inhalation (Spiriva Respimat) Previous Rx's ?Medication ?Instructions ?Recorded losartan 100 1 tab PO DAILY 90 days #90 tabs 03/10/24 mg-hydrochlorothiazide 12.5 mg tablet metformin 500 mg tablet,extended 500 mg PO BID 90 days #180 tabs 03/10/24 release 24 hr methocarbamol 750 mg tablet 750 mg PO TID 30 days #90 tabs 05/11/24 tizanidine 4 mg capsule 4 mg PO BEDTIME PRN muscle 05/13/24 spasticity 7 days #7 caps mirabegron 25 mg tablet,extended 25 mg PO DAILY 30 days #30 tabs 05/16/24 release 24 hr (Myrbetriq) tamsulosin 0.4 mg capsule 0.8 mg (2 x 0.4 mg) PO DAILY 90 05/21/24 days #180 caps semaglutide 0.25 mg or 0.5 mg (2 0.5 mg (0.736 mL) subcut QWEEK 4 05/24/24 mg/3 mL) subcutaneous pen injector weeks #2.944 mL (Ozempic) diclofenac sodium 75 mg 75 mg PO BID PRN pain 30 days #60 06/10/24 tablet,delayed release tabs ketorolac 10 mg tablet 10 mg PO Q8H PRN pain #10 tabs 06/15/24 lidocaine 5 % topical patch 1 patch topical DAILY #15 ea 06/15/24 Allergies Allergy/AdvReac Type Severity Reaction Status Date / Time loratadine [From Claritin] Allergy Severe Hives Verified 06/15/24 07:36 Review of Systems Review of Systems: As per HPI. Yes all other systems are reviewed and are negative Constitutional: Constitutional: Reports as per HPI PMFSH Past Medical History Surgical History (Updated 03/10/24 @ 16:59 by Sylvia Stoner MD) History of colonoscopy History of rotator cuff surgery Family History Family History (Updated 03/10/24 @ 16:30 by Sylvia Stoner MD) Mother Osteoporosis Father Hypertension Diabetes Social History Social History (Updated 03/10/24 @ 16:31 by Sylvia Stoner MD) Housing: House Alcohol intake: current Alcohol intake frequency: 0-2 drinks per day Alcohol type: beer Patient Tobacco Use Status: Former Tobacco user Tobacco use type: Cigarette Smoked in Last 30 Days: No e-Cigarette/Vaping Use: Never Used Second Hand Smoke Exposure: No Use of substances other than those prescribed or required for medical reasons: No Advance Directives: No Advance Directives Information Provided: Yes Do you have a plan to hurt others: No Plan service: Yes Current occupational status: employed Current occupational exposures/hazards: No Cognitive needs: No Hearing needs: No Vision needs: Yes Physical Exam Vital Signs: Vital Signs: Last Vital Signs Temp 97.7 F 06/15/24 12:00 Pulse 95 06/15/24 12:00 Resp 16 06/15/24 12:00 BP 139/76 06/15/24 12:00 Pulse Ox 97 06/15/24 12:00 O2 Del Method Room Air 06/15/24 12:00 BMI result Body Mass Index 28.2 Vital signs have been reviewed and appear to be correct. Blood pressure elevated. Heart rate mildly tachycardic. Respiratory rate normal. Temperature normal. Oxygen saturation normal. Const: General: cooperative, healthy appearing and no acute distress Orientation/consciousness: oriented to person, oriented to place, oriented to time and patient oriented x3 Limitations: no limitations HEENT: Head: Yes normocephalic and Yes atraumatic Ears: external ears normal General nose exam: Normal external nose present Face and sinus: Yes face symmetric Mouth: oropharynx normal and moist mucous membranes Throat: Yes uvula midline Eyes: Pupils: Equal, round and reactive pupils present Neck: Neck: Yes normal visual inspection and Yes supple Resp: Effort & Inspection: normal respiratory effort and able to speak in complete sentences Auscultation: clear to auscultation bilaterally and wheezes scattered wheezes Cardio: Rate: regular rate Rhythm: regular rhythm Heart sounds: S1 normal heart sound present and S2 normal heart sound present Peripheral pulses: Peripheral pulses 2+ throughout GI: Palpation (GI): Soft to palpation and nontender Auscultation: normoactive bowel sounds : General: Yes no CVA tenderness Back/Spine/Pelvis: Back: no CVA tenderness Skin: General skin exam: elasticity normal and turgor normal Neuro: General: oriented to person, oriented to place, oriented to time, patient oriented x3, moves all extremities, no focal motor deficits and CN's II-XI intact bilaterally Cranial nerves: Yes Equal, round and reactive pupils present Cognition (Neuro): normal cognition Extrem: General: Yes full ROM, Yes no pedal edema and Yes no calf tenderness Psych: Mental Status: mental status grossly normal Affect: normal affect Thought process: Normal thought process present Medical Decision Making Medical Decision Making MDM Narrative: Patient is a 63-year-old male with history of dje-dfulgan-ruoagnyzq diabetes, COPD not on oxygen, hypertension and BPH presenting to the ED with complaint of ongoing left-sided chest pain. On exam patient is awake, A+Ox3, slightly tachycardic, VS otherwise WNL, afebrile, normal neurological exam without focal deficits, physical exam findings as above. Given reported symptoms and physical exam findings, initial differential includes but is not limited to ACS, PE, musculoskeletal pain. Unlikely aortic dissection, esophageal rupture, PTX, tamponade, pericarditis based on physical exam findings. Labs notable for no leukocytosis, negative troponin, negative D-dimer, no significant electrolyte abnormalities. X-ray chest notable for linear opacity in right mid hemithorax not noted on CXR from 06/12 described as atelectasis vs scar. My interpretation is in agreement with the radiologist's interpretation. HEART score of 2. EKG shows normal sinus rhythm, no significant change from prior. Feel patient is stable for discharge to follow up with PCP. Results discussed with patient and all questions answered. Follow up with PCP for ongoing symptoms. Will send prescription for short course of Toradol, lidocaine patches. Patient concerned about returning to work, will refer to the work connection. Return precautions discussed at bedside. Patient verbalized understanding of and agreement with plan. Differential Diagnosis Differential Diagnoses: The differential diagnosis associated with the presentation includes As per [facility] Admission/Observation Consideration of admission/observation: Escalation of care including admission/observation considered Patient would have been admitted to the hospital had their work up had any findings where hospital admission was appropriate and their clinical presentation warranted hospital admission. Lab Data [facility] Lab Attestation statement: I reviewed the patient's lab results. As per [facility] 06/15/24 07:50 06/15/24 07:50 Labs: Lab Results 06/15/24 06/15/24 Range/Units 07:50 08:48 WBC 6.5 (4.8-10.8) X10*3/uL RBC 4.54 L (4.60-5.80) X10*6/uL Hgb 14.1 (14.0-18.0) g/dl Hct 40.5 L (42.0-52.0) % MCV 89.2 (80.0-98.0) fL MCH 31.1 (27.0-33.0) pg MCHC 34.8 (31.0-36.0) g/dl RDW 12.6 (11.0-16.0) % Plt Count 135 L (160-400) X10*3/uL MPV 10.2 (9.4-12.4) fL Immature Gran % (Auto) 0.5 H (0.0-0.4) % Neut % (Auto) 69.2 (45-73) % Lymph % (Auto) 19.8 L (20-40) % [place] % (Auto) 7.4 (2-11) % Eos % (Auto) 2.5 (0-4) % Baso % (Auto) 0.6 (0-2) % Lymph # (Auto) 1.3 (1.2-4.9) X10*3/uL [place] # (Auto) 0.5 (0.1-1.2) X10*3/uL Eos # (Auto) 0.2 (0.0-0.4) X10*3/uL Baso # (Auto) 0.0 (0.0-0.2) X10*3/uL Abs Immat Gran (auto) 0.03 (0.00-0.03) X10*3/uL Absolute Neuts (auto) 4.5 (2.0-8.3) x10*3/uL Absolute Nucleated RBC 0.000 (0.0-0.012) X10*3/uL Nucleated RBC % (auto) 0.0 (0.0-0.2) /100WBC D-Dimer High Sensitivty < 150 NG/ML Sodium 138 (135-145) mmol/L Potassium 4.3 (3.3-5.1) mmol/L Chloride 107 (96-108) mmol/L Carbon Dioxide 21 L (22-29) mmol/L Anion Gap 14 (12-20) BUN 17 H (9-16) mg/dL Creatinine 1.14 (0.5-1.4) mg/dL Estim Creat Clear Calc 75.4 Estimated GFR > 60 Random Glucose 159 H (60-115) mg/dL Calcium 8.6 D (8.4-10.2) mg/dL Total Bilirubin 0.7 (0.0-1.0) mg/dL Direct Bilirubin 0.3 (0.0-0.5) mg/dL AST 46 H (5-37) U/L ALT 49 H (0-40) U/L Alkaline Phosphatase 117 (39-117) U/L Troponin I High Sens < 2.7 (<3.5-35.0) ng/L Total Protein 7.3 (6.5-8.0) g/dL Albumin 4.2 (3.5-5.0) g/dL Lipase 32 (8-78) U/L Independent Interpretation I performed an independent interpretation of an: EKG (normal sinus rhythm, rate 100bpm, normal RI interval and QTc) and Plain X-Ray Interpretation: X-ray chest notable for linear opacity in right mid hemithorax not noted on CXR from 06/12 described as atelectasis vs scar. Radiology Impression Discussion of test interpretation with radiology: I have reviewed the radiologist's reading. Radiologist Impression: FINDINGS: Linear opacity in the peripheral right mid hemithorax. No pleural effusion or pneumothorax. No gross consolidation. No hyperinflation. Cardiomediastinal silhouette is normal in size. Multilevel thoracic spondylosis. XR/XR chest 1V IMPRESSION: Subsegmental atelectasis versus scar, right lung. External Record Review External record reviewed: Inpatient record, Office record and Outpatient record Prescription Management I considered prescription management with: Pain Medication Scores Heart Score History: -0- slightly suspicious ECG: -0- normal Age: -1- >45 - <65 Risk factory: -1- 1 or 2 risk factors Troponin: -0- < or = normal limit Score: 2 Risk: 1.7% Discharge Plan Discharge Clinical Impression: Atypical chest pain Patient Disposition: Home, Self-Care Instructions: Noncardiac Chest Pain (ED) Additional Instructions: You were evaluated in the emergency department today for chest pain. Your evaluation has shown no signs of medical conditions requiring emergent intervention at this time, however we recommend that you follow-up with your primary care physician for further testing as an outpatient. You are being prescribed ketorolac and topical lidocaine patches for pain. You can wear the patches for up to 12 hours in a 24 hour period, do not apply heat directly over the patches. Return to the emergency department if you experience worsening or uncontrolled chest pain, shortness of breath, lightheadedness, feeling faint, loss of consciousness, nausea, vomiting, or any other concerning symptoms. If you feel unable to return to work on Thursday, follow up with the [facility]. [facility] [address] [place] [address] Prescriptions: New lidocaine 5 % adhesive patch,medicated 1 patch topical DAILY Qty: 15 0RF Rx Instructions: leave on most painful area for up to 12 hrs ketorolac 10 mg tablet 10 mg PO Q8H PRN (Reason: pain) Qty: 10 0RF Rx Instructions: maximum total duration of 5 days from all oral, intranasal, or parenteral formulations No Action methocarbamol 750 mg tablet 750 mg PO TID 30 Days Qty: 90 0RF tizanidine 4 mg capsule 4 mg PO BEDTIME PRN (Reason: muscle spasticity) 7 Days Qty: 7 0RF tamsulosin 0.4 mg capsule 0.8 mg PO DAILY 90 Days Qty: 180 0RF Ozempic 0.25 mg or 0.5 mg (2 mg/3 mL) pen injector 0.5 mg subcut QWEEK 28 Days Qty: 2.944 0RF diclofenac sodium 75 mg tablet,delayed release (DR/EC) 75 mg PO BID PRN (Reason: pain) 30 Days Qty: 60 0RF finasteride 5 mg tablet 5 mg PO DAILY Spiriva Respimat 1.25 mcg/actuation mist 2 puff inhalation DAILY Jardiance 10 mg tablet 10 mg PO DAILY fluticasone propionate 220 mcg/actuation HFA aerosol inhaler 2 puff inhalation BID losartan-hydrochlorothiazide 100-12.5 mg tablet 1 tab PO DAILY 90 Days Qty: 90 1RF metformin 500 mg tablet extended release 24 hr 500 mg PO BID 90 Days Qty: 180 2RF mirabegron [Myrbetriq] 25 mg tablet extended release 24 hr 25 mg PO DAILY 30 Days Qty: 30 1RF Stand Alone Forms: Work/School Release Print Language: Azeri
[2024-06-15 08:39] VITALS: BP 143/82; PULSE 109; RESP 18; TEMP 36.8; O2SAT 98
[2024-06-15 09:11] LABS: D Dimer High Sensitivity < 150 NG/ML
[2024-06-15 10:00] VITALS: BP 132/77; PULSE 100; RESP 20; TEMP 36.5; O2SAT 98
[2024-06-15 12:00] VITALS: BP 139/76; PULSE 95; RESP 16; TEMP 36.5; O2SAT 97
[2024-06-15 12:57] VITALS: BP 139/76; PULSE 95; RESP 16; TEMP 36.5; O2SAT 97
== END 2024-06-15 12:58 | disposition home or self-care (01) ==
PROVIDERS: Registered Nurse Emergency; Emergency Provider Emergency Medicine; PCP Internal Medicine
DX: R07.9 Chest pain, unspecified (principal); J44.9 Chronic obstructive pulmonary disease, unspecified; E11.9 Type 2 diabetes mellitus without complications; I10 Essential (primary) hypertension; Z79.899 Other long term (current) drug therapy
CPT/HCPCS: 36415; 71045; 80048; 80076; 83690; 84484; 85025; 85379; 93005; 99283; 99285

== ENCOUNTER → 2024-06-15 07:26 | Outpatient (BNV) | payer OTHER, SELFPAY | PROVIDERS: Emergency Provider Emergency Medicine; PCP Internal Medicine; Visit Provider Internal Medicine Cardiovascular Disease | DX: R07.9 Chest pain, unspecified (principal) | CPT/HCPCS: 93010 ==

== ENCOUNTER → 2024-06-15 07:37 | Outpatient (BNV) | payer OTHER, SELFPAY | PROVIDERS: Emergency Provider Emergency Medicine; PCP Internal Medicine; Visit Provider Radiology Diagnostic Radiology | DX: R07.9 Chest pain, unspecified (principal) | CPT/HCPCS: 71045 ==

== ENCOUNTER 2024-07-01 15:42 | Outpatient (AMB) | payer OTHER, SELFPAY ==
--- NOTE | 2024-07-01 15:46 | A.OFFPC_ITS ---
Vital Signs 07/01/24 15:47 Height 5 ft 10 in Weight 198 lb 6 oz BMI 28.5 BP 126/74 Blood Pressure Location Lt brachial Position Sitting Pulse 104 H Pulse Source Pulse Oximeter Temp 97.8 F Temp Source Temporal Artery Scan Pulse Oximetry (%) 94 Oxygen Delivery Method Room Air Intake Visit Reasons: [facility] ER 2/5 Advertising Dispatch Clerk Required: No Accompanied by: Self / Same As Patient Allergies loratadine [From Claritin] Allergy (Severe, Verified 07/01/24 16:09) Hives Medication List - Last Reconciled 07/01/24 by Lesli Amador PA-C cyclobenzaprine 10 mg PO Q8H PRN diclofenac sodium 75 mg PO BID PRN 30 days empagliflozin (Jardiance) 10 mg PO DAILY finasteride 5 mg PO DAILY fluticasone propionate 220 mcg/actuation 2 puffs inhalation BID ketorolac 10 mg PO Q8H PRN lidocaine 5% 1 patch topical DAILY losartan-hydrochlorothiazide 100-12.5 mg 1 tab PO DAILY 90 days metformin ER 500 mg PO BID 90 days methocarbamol 750 mg PO TID 30 days mirabegron ER (Myrbetriq) 25 mg PO DAILY 30 days semaglutide (Ozempic) 0.5 mg (0.736 mL) subcut QWEEK 4 weeks tamsulosin 0.8 mg (2 x 0.4 mg) PO DAILY 90 days tiotropium bromide 1.25 mcg/actuation (Spiriva Respimat) 2 puffs inhalation DAILY tizanidine 4 mg PO BEDTIME PRN 7 days Tobacco use date assessed: 07/01/24 Dental Screening Dental Screen Date: 07/01/24 Did you have a dental visit in the last 12 months?: Yes Did you have a dental problem in the last 6 months where you did not have access to dental care?: No Was dental information given to patient?: Patient has dentist [facility] Medical History Left low back pain Left upper quadrant abdominal pain Left flank pain Surgical History History of colonoscopy History of rotator cuff surgery Family History Mother Osteoporosis Father Hypertension Diabetes Social History Housing: House Alcohol intake: current Alcohol intake frequency: 0-2 drinks per day Alcohol type: beer Patient Tobacco Use Status: Former Tobacco user Tobacco use type: Cigarette e-Cigarette/Vaping Use: Never Used Second Hand Smoke Exposure: No service: Yes Current occupational status: employed Current occupational exposures/hazards: No Cognitive needs: No Hearing needs: No Vision needs: Yes Questionnaire PHQ-9 Over the last 2 weeks, how often have you been bothered by any of the following problems? 1. Little interest or pleasure in doing things: not at all 2. Feeling down, depressed, or hopeless: not at all 3. Trouble falling or staying asleep, or sleeping too much: not at all 4. Feeling tired or having little energy: not at all 5. Poor appetite or overeating: not at all 6. Feeling bad about yourself - or that you are a failure or have let yourself or your family down: not at all 7. Trouble concentrating on things, such as reading the newspaper or watching television: not at all 8. Moving or speaking so slowly that other people could have noticed. Or the opposite - being so fidgety or restless that you have been moving around a lot more than usual: not at all 9. Thoughts that you would be better off or of hurting yourself in some way: not at all Total score: 0 Depression Screening Interpretation: Negative Depression Screening Done: Yes 55878 - PHQ-9 Billing: Yes Source: Developed by Drs. Bryant Pete, Deana Henderson, Mirza Tierney and colleagues, with an educational jayesh from [employer]. Thrive Questionnaire Date Thrive assessed: 07/01/24 I am a: Patient What is your living situation today?: I have a steady place to live Within the past 12 months, did the food you bought not last and you didn't have the money to get more?: Never true Within the past 12 months, did you worry whether your food would run out before you got money to buy more?: Never true Do you have trouble paying for medicines?: No Do you have trouble getting transportation to medical appointments?: No Do you have trouble paying your heating and electricity bill?: No Do you have trouble taking care of your child, family member or friend?: No Do you have trouble with day-to-day activities such as bathing, preparing meals, shopping, managing finances, etc.?: No Are you currently unemployed and looking for a job?: No Are you interested in more education?: I choose not to answer this question Please select the resources that you would like help with: None Currently or been in a relationship where the following occur: No concerns reported THRIVE Score: 0 AUDIT C Alcohol Use Questionnaire (AUDIT-C) 1. How often do you have a drink containing alcohol?: 4 or more times a week 2. How many drinks containing alcohol do you have on a typical day when you are drinking?: 1 or 2 3. How often do you have six or more drinks on one occasion?: Never Total Score: 4 Score Reviewed/Action Taken: Yes FLETCHER-7 AMB Questionnaire FLETCHER-7 Date FLETCHER - 7 assessed: 07/01/24 Feeling nervous, anxious, or on edge: 0 = Not at all Not being able to stop or control worryin = Not at all Worrying too much about different things: 0 = Not at all Trouble relaxin = Not at all Being so restless that it is hard to sit still: 0 = Not at all Becoming easily annoyed or irritable: 0 = Not at all Feeling afraid as if something awful might happen: 0 = Not at all Total FLETCHER-7 score (0-4 normal; 5-9 mild; 10-14 moderate; 15-21 severe): 0 Source: Developed by Drs. Bryant Pete, Deana Henderson, Mirza Tierney and colleagues, with an educational jayesh from [employer]. FLETCHER-7 Assessment Billing FLETCHER-7 Assessment Tool: FLETCHER-7 Assessment 43593 Physical exam (Primary Care) Vital Signs: Last Vital Signs Temp 97.8 F 07/01/24 15:47 Pulse 104 H 07/01/24 15:47 BP 126/74 07/01/24 15:47 Pulse Ox 94 07/01/24 15:47 Oxygen Delivery Method Room Air 07/01/24 15:47 BMI result Body Mass Index 28.5 Tobacco/Smoking Status: Tobacco use Status Tobacco use date assessed 07/01/24 07/01/24 15:51 Patient Tobacco Use Status Former Tobacco user 07/01/24 15:49 Tobacco use type Cigarette 07/01/24 15:49 e-Cigarette/Vaping Use Never Used 07/01/24 15:49 PHQ-9: PHQ-9 Score PHQ-9: Total score 0 07/01/24 16:09 Depression Screening Interpretation: Negative Thrive Assessment: Date of Thrive Assessment Date Thrive assessed 07/01/24 07/01/24 15:49 Currently or been in a relationship where the following occur: No concerns reported Coding Level of Care Code Est Pt Level 4 (64913) Complex EM visit Add On G2211 Diagnoses Atypical chest pain R07.89 Left flank pain R10.9 Left upper quadrant abdominal pain R10.12 Left low back pain M54.50 Chronic obstructive pulmonary disease, unspecified COPD type J44.9 COPD type: unspecified COPD Essential hypertension I10 Type 2 diabetes mellitus with diabetic neuropathy, without long-term current use of insulin E11.40 Diabetes mellitus complication status: with neurologic complications Diabetes mellitus complication detail: with unspecified neuropathy Additional Codes FLETCHER-7 Assessment Billing - FLETCHER-7 Assessment Tool: FLETCHER-7 Assessment 15263 ([id number]) PHQ-9 - 15923 - PHQ-9 Billing: Yes ([id number]) Assessment & Plan Assessment & Plan (1) Atypical chest pain: Code(s): R07.89 - Other chest pain Category: Medical Plan: Patient with atypical chest pain. He reports it has improved since his last ER visit. He went to the ER on 06/12/2024, 06/14/2024 and 06/15/2024. Had negative D- dimer negative troponin, normal EKG and was sent home with outpatient follow-up. Patient will be referred to Cardiology, echocardiogram was ordered, 3 day Holter monitor was ordered. Condition is stable will continue to monitor. (2) Left flank pain: Code(s): R10.9 - Unspecified abdominal pain Category: Medical Plan: When the patient points his pain it appears that it is located to the left upper quadrant/left flank and left back. Although there is no reproducible tenderness on exam at this time anywhere on the chest, abdomen, flank or back. He has the Lidoderm patch placed on the left lower rib cage/left upper quadrant/left flank area. Concerned for possible pancreatic mass, kidney stones therefore will order CT scan abdomen pelvis with IV contrast to evaluate for this. Will contin ue to monitor. (3) Left upper quadrant abdominal pain: Code(s): R10.12 - Left upper quadrant pain Category: Medical Plan: No reproducible tenderness on exam. See above (4) Left low back pain: Code(s): M54.50 - Low back pain, unspecified Category: Medical Plan: See above (5) COPD (chronic obstructive pulmonary disease): Code(s): J44.9 - Chronic obstructive pulmonary disease, unspecified Category: Medical Qualifiers: COPD type: unspecified COPD Qualified Code(s): J44.9 - Chronic obs tructive pulmonary disease, unspecified Plan: Patient to continue inhalers as prescribed. Condition is chronic and stable continue to monitor. (6) Essential hypertension: Code(s): I10 - Essential (primary) hypertension Category: Medical Plan: Patient to continue losartan/hydrochlorothiazide combo 100-12.5 mg once daily. Condition is chronic and stable continue to monitor. (7) Type 2 diabetes mellitus, without long-term current use of insulin: Code(s): E11.9 - Type 2 diabetes mellitus without complications Category: Medical Qualifiers: Diabetes mellitus complication status: with neurologic complications Diabetes mellitus complication detail: with unspecified neuropathy Qualified Code(s): E11.40 - Type 2 diabetes mellitus with diabetic neuropathy, unspecified Plan: Patient to continue Jardiance 10 mg daily, metformin 500 mg p.o. b.i.d. patient to continue semaglutide 0.5 mg subQ weekly. Condition is chronic and stable continue to monitor. Plan Plan Patient was informed and verbally consented to the use of an ambient scribe for clinic note documentation during this visit. 1. Back Pain The etiology is suspected musculoskeletal, possibly relating to past rib fractures. I have prescribed a muscle relaxant to be taken up to three times daily to evaluate symptom relief and potential musculoskeletal involvement further. 2. Type 2 Diabetes Mellitus Continue current management. The impact on chest and back pain is indirectly monitored through thorough diabetes management. 3. Alcohol Use I have considered his daily alcohol consumption as part of the differential diagnosis, particularly regarding its effects on the pancreas and overall health. 4. Left-Sided Chest Pain The plan includes a cardiology consult with an echocardiogram and Holter monitor to rule out cardiac causes. I will monitor the heart for three days to evaluate ongoing chest symptoms. An outpatient computed tomography scan of the abdomen is warranted to check for any pancreatic masses or other abnormalities. Orders: Orders CA echo transthoracic complete Today R07.89 - Other chest pain ECG 3 day holter monitor Today R07.89 - Other chest pain CT abdomen pelvis w IV con Today M54.50 - Low back pain, unspecified, R10.12 - Left upper quadrant pain, R10.9 - Unspecified abdominal pain Referrals Cardiology Referral R07.89 - Other chest pain Medications: New cyclobenzaprine 10 mg PO Q8H PRN 180 tabs 0RF muscle spasm Discontinued tizanidine Discontinued Reason: Duplicate 4 mg PO BEDTIME 7 days PRN 7 caps 0RF muscle spasticity Patient Instructions: Patient Instructions - Take prescribed muscle relaxants up to three times daily as needed for pain. - Please attend the scheduled cardiology appointment for echocardiogram and Holter monitoring. - Avoid alcohol intake if not advised otherwise by your primary provider. - Monitor for any signs of acute cardiac issues, such as radiating chest pain or severe breathlessness, and seek immediate emergency care if these occur. - Await instructions for the scheduled abdominal CT scan. - Follow up with your primary care physician as scheduled to review test results. - Stay hydrated and maintain a balanced diet to help manage diabetes symptoms. Scribe Plan - Not visible on output: History of Present Illness The patient is a 63-year-old male presenting with persistent left-sided chest pain and back pain that has improved. The patient was evaluated in the emergency room on June 15 and reported similar symptoms on June 12 and . The chest pain is described as constant and stabbing, localized to the left side and radiating to the back. The pain is not exacerbated by movement or palpation. In the emergency room, initial evaluations, including an electrocardiogram, laboratory tests for cardiac enzymes, and a D-dimer test, were notably negative. Imaging showed a linear opacity on chest X-ray, suspected to be chronic scar tissue without active infection. Rib fractures sustained four years ago are noted as potentially contributive, though the pain is localized near the pancreas area. He reports the pain as consistent despite treatment and persists daily, noting some intensification over time. He was prescribed lidocaine patches and nonsteroidal anti-inflammatory drugs, but not all medications were effective or covered by his insurance. Additionally, he has a history of alcohol consumption, roughly two beers per day, diabetes managed through medication, and past gallstone issues without recent episodes. Social History - Drinks two beers daily. - History of eye surgery last week. 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 Review of Systems - Respiratory: Denies shortness of breath. - Gastrointestinal: Denies nausea, vomiting, diarrhea, constipation. - Genitourinary: Denies dysuria. - Neurological: Denies numbness or radiating pain. Physical Exam Appearance: Alert. Oriented X3. No acute distress. Head: Normal external exam. Normocephalic. Atraumatic. Eyes: Pupils are equal, round, and reactive to light. Extraocular movements intact. Conjunctiva and sclera normal. Eyelids normal. Ears: External auditory canal normal. Tympanic membranes normal. Throat: Pharynx normal. Uvula midline. Moist mucous membranes. Neck: Normal inspection. Neck supple. Full range of motion. No adenopathy. Thyroid Normal. No meningeal signs. No neck mass noted. Cardiovascular: Normal heart rate and rhythm. Heart sound normal. No murmurs noted. Pulses normal throughout. Respiratory: No respiratory distress. Painless inspiration. Breath sounds normal. No wheezes/rales/rhonchi noted. Chest nontender. No accessory muscle usage noted or decreased air movement noted. Abdomen: Soft and nontender. Bowel sounds normal in all 4 quadrants. No distention noted. No organomegaly noted. No visible injury noted. Back: No costovertebral angle tenderness. Full range of motion noted. Stabbing pain in the left mid/lower back. Skin: Skin warm and dry. Normal skin color. Normal skin turgor. No rashes/lesions/lacerations noted. Extremities: No lower extremity edema. Extremities exhibit normal range of motion. Extremities nontender. Neuro: Oriented X 3. No motor deficit. No sensory deficit. Reflexes normal. Results - Labs: Negative cardiac enzymes, normal D-dimer, mildly elevated liver enzymes, normal bilirubin. - Imaging: Chest X-ray showed linear opacity, no active infection; no imaging of pancreas noted. Plan Patient was informed and verbally consented to the use of an ambient scribe for clinic note documentation during this visit. 1. Back Pain The etiology is suspected musculoskeletal, possibly relating to past rib fractures. I have prescribed a muscle relaxant to be taken up to three times daily to evaluate symptom relief and potential musculoskeletal involvement further. 2. Type 2 Diabetes Mellitus Continue current management. The impact on chest and back pain is indirectly monitored through thorough diabetes management. 3. Alcohol Use I have considered his daily alcohol consumption as part of the differential diagnosis, particularly regarding its effects on the pancreas and overall health. 4. Left-Sided Chest Pain The plan includes a cardiology consult with an echocardiogram and Holter monitor to rule out cardiac causes. I will monitor the heart for three days to evaluate ongoing chest symptoms. An outpatient computed tomography scan of the abdomen is warranted to check for any pancreatic masses or other abnormalities. Discussion Notes During the consultation, I discussed the need for further cardiac evaluation through a cardiology referral and echocardiogram to assess and eliminate potential cardiac causes of his persistent chest pain. I proposed starting a muscle relaxant to rule out a musculoskeletal marie, considering previous rib fracture history. An abdominal CT scan is deemed necessary to evaluate any underlying pancreatic or abdominal issues. Alcohol use and chronic conditions were considered during this evaluation, ensuring their management aligns with this provisional diagnosis. I encouraged him to watch for any symptoms suggestive of acute cardiac events and seek immediate care if these occur. Follow-up and coordination with his primary care provider will ensure comprehensive continuous care. Patient Instructions - Take prescribed muscle relaxants up to three times daily as needed for pain. - Please attend the scheduled cardiology appointment for echocardiogram and Holter monitoring. - Avoid alcohol intake if not advised otherwise by your primary provider. - Monitor for any signs of acute cardiac issues, such as radiating chest pain or severe breathlessness, and seek immediate emergency care if these occur. - Await instructions for the scheduled abdominal CT scan. - Follow up with your primary care physician as scheduled to review test results. - Stay hydrated and maintain a balanced diet to help manage diabetes symptoms.
--- OUTSIDE RECORDS SUMMARY | 2024-07-01 15:46 | XMS_ITS | Encounter Summary ---
Author Organization [facility] Address [address] [place] [address] Care Team Providers Care Trimmer Tailer Name Role Phone Arnol Richardson MD Primary Care Provider Alina Banegas MD Primary Care Provider Un available Yosi Rush Primary Care Provider [phone] Ajay Gallagher MD Unavailable [phone] Encounter Details Date Type Department Care Team Description 01/29/2018 Director Advertising Report Medical Records [address] [place] [address] Olman Alfonso MD Social History Tobacco Use Types Packs/Day Years Used Date Smoking Tobacco: Former Smokeless Tobacco: Current Chew Alcohol Use Standard Drinks/Week Comments Yes 0 (1 standard drink = 0.6 oz pure alcohol) 5 days per week, 2 beers after work Sex Assigned at Date Recorded Not on file Job Start Date Occupation Industry Not on file Not on file Not on file documented as of this encounter Plan of Treatment Not on file documented as of this encounter Visit Diagnoses Not on filedocumented in this encounter Care Teams Trimmer Tailer Relationship Specialty Start Date End Date Arnol Richardson MD PCP - General Internal Medicine 01/19/17 10/30/20 Alina Mireles MD PCP - General Internal Medicine 10/31/20 Yosi Rush [address] [place] [address] PCP - General Internal Medicine 09/03/21 Ajay Gallagher MD [address] [place] [address] Specialist Cardiovascular Disease 06/05/22 documented as of this encounter
--- OUTSIDE RECORDS SUMMARY | 2024-07-01 15:46 | XMS_ITS | Encounter Summary ---
Author Organization [facility] Address [address] [place] [address] Care Team Providers Care Glove Turner And Former Automatic Name Role Phone Arnol Richardson MD Primary Care Provider Alina Banegas MD Primary Care Provider Un available Yosi Rush Primary Care Provider [phone] Ajay Gallagher MD Unavailable [phone] Encounter Details Date Type Department Care Team Description 10/14/2017 SCAN Medical Records [address] [place] [id number] Abstract, Provider Social History Tobacco Use Types Packs/Day Years [...] on file documented as of this encounter Procedures Procedure Name Priority Date/Time Associated Diagnosis Comments OUTSIDE EKG Routine 10/14/2017 documented in this encounter Results * OUTSIDE EKG (10/14/2017) Provider Abstract CARDIOLOGY documented in this encounter Visit Diagnoses Not on filedocumented in this encounter Care Teams Glove Turner And Former Automatic Relationship Specialty Start Date End Date Arnol Richardson MD PCP - General Internal Medicine 01/19/17 10/30/20 Alina Mireles MD PCP - General Internal Medicine 10/31/20 Yosi Rush [address] [place] [address] PCP - General Internal Medicine 09/03/21 Ajay Gallagher MD Medical [facility] [address] [place] [id number] Specialist Cardiovascular Disease 06/05/22 documented as of this encounter
--- OUTSIDE RECORDS SUMMARY | 2024-07-01 15:46 | XMS_ITS | Clinical Summary ---
Author Organization [address] [place] [address] [place] [id number] Phone Care Team Providers Care District Agent Name Role Phone Sylvia Stoner MD Primary Care Provider [phone] Allergies Active Allergy Reactions Criticality Noted Date Comments Loratadine Shortness of breath,Wheezing High 02/10/2019 Other Shortness of breath,Wheezing,Runny nose High 09/18/2017 Seasonal allergies Medications empagliflozin (Jardiance) 10 mg tablet Take 1 tablet (10 mg total) by mouth 1 (one) time each day. Active losartan-hydroC HLOROthiazide (HYZAAR) 100-12.5 mg per tablet Take 1 [...] BPH with urinary obstruction 11/01/2021 Overview (02/16/2024): [facility] Urology Obstructive sleep apnea 12/31/2020 Overview (02/16/2024): [facility] Home Sleep Apnea Test: Date 12/17/2020; [...] Type Department Care Team Description 04/01/2024 Telephone [facility] [id number] [facility] [address] [place] [address] Addis Newberry NP No Show [...] 06/18/2022 Type 2 diabetes mellitus with obesity ([facility]) 06/13/2022 Sleep apnea 12/31/2020 Obstructive COPD (chronic obstructive pulmonary disease) ([facility]) 10/08/2020 w/emphysema Elevated LFTs 09/17/2020 Asthma Vertigo [...] Recorded Sex Assigned at Not on file Legal Sex Male 1:08 AM EST Gender Identity Not on file Sexual Orientation [...] Annual Retina Eye Exam 11/25/1971 Pneumococcal Vaccine: 50+ Years (2 of 2 - PCV) 01/18/2010 01/18/2009 Pneumococcal Vaccine: Pediatrics (0 to 5 Years) [...] patient's age to complete this topic Meningococcal B Vacine Aged Out No lo nger eligible based on patient's age to complete [...] Maintenance Results * Diabetes Foot Exam (08/03/2023) Diabetes: Annual Foot Exam abstracted us Historical Provider HEALTH MAINTENANCE Final Result * (ABNORMAL) Hemoglobin A1c (12/08/2022) Hemoglobin A1C 6.6(A) <=6.5 % Blood Venous blood specimen / Unknown Result [facility] Provider LAB BLOOD ORDERABLES Paz l Result * Urine Albumin Creatinine Ratio (05/20/2022) Pathologist [facility] Urine Albumin Creatinine Ratio abstracted Result [facility] Provider HEALTH MAINTENANCE Final Result * Annual BMP Blood Test (05/20/2022) [facility] Annual BMP Blood Test abstarcted Result [facility] Provider HEALTH MAINTENANCE Final Result * Lipid panel (05/20/2022) [facility] LDL/HDL Ratio 3 0 - 4 Triglycerides 144 0 - 150 mg/dL Cholesterol 150 0 - 200 mg/dL HDL 52 >=40 mg/dL LDL Cholesterol 70 0 - 100 mg/dL Blood Venous blood specimen / Unknown Result [facility] Provider LAB BLOOD ORDERABLES Paz l Result * Colonoscopy (06/20/2019) [facility] Colonoscopy abstracted, no interpretation Anatomical Region Laterality Modality Other Result [facility] Provider HEALTH MAINTENANCE Final Result * Hepatitis C Screening (05/02/2019) [facility] Hepatitis C Screening abstracted Result [facility] Provider HEALTH MAINTENANCE Final Result from Last 3 Months or Most Recently Relevant to Health Maintenance Insurance [facility] Care Teams District Agent Relationship Specialty Start Date End Date Sylvia Stoner MD [address] [facility] , [address] [facility] D/B/A: [facility] Internal Medicine ROSY Zazueta PCP - General Internal Medicine 03/11/24
--- OUTSIDE RECORDS SUMMARY | 2024-07-01 15:46 | XMS_ITS | Encounter Summary ---
Author Organization [facility] Address [address] [place] [address] Care Team Providers Care Broke Worker Name Role Phone Yosi Rush Primary Care Provider [phone] Ajay Gallagher MD Unavailable [phone] Reason for Visit * Reason Onset Date Comments medication problems 08/11/2022 Encounter Details Date Type Department Care Team Description 08/11/2022 Telephone Adult Medicine [address] [address] Yosi Rush [address] [place] [address] [phone] medication problems Social History Tobacco Use Types Packs/Day Years Used Date Smoking Tobacco: Former Smokeless Tobacco: Current Chew Alcohol Use Standard Drinks/Week Comments Yes 2 (1 standard drink = 0.6 oz pur e alcohol) daily, beer and liqour Sex Assigned at Date Recorded Not on file Job Start Date Occupation Industry Not on file Not on file Not on file COVID-19 Exposure Response Date Recorded In the last 10 days, have yo u been in contact with someone who was confirmed or suspected to have Coronavirus/COVID-19? No / Unsure 08/12/2022 4:48 PM EDT documented as of this encounter Miscellaneous Notes * Telephone Encounter - Ada Johnston M.A. - 08/11/2022 11:05 AM EDT Left message for pt to call back. He needs to call his insurance company to find out what they willcover that is comparable to the advair * Telephone Encounter - Donnie Bains - 08/11/2022 9:32 AM EDT What is the name of the medication patient is having a problem with?: fluticasone-salmeterol (Advair HFA) 115-21 MCG/ACT inhaler What is the problem?: alternative requested, not covered Is the patient calling about the problem? NO If the patient is not the caller who is? Faxed from [facility] Is this a NEW medication?: How long has the patient been taking this medication? Who prescribed this medication for the patient? Yosi Rush Who is patients PCP?: Yosi Rush Payor: [facility] / Plan: POS $20 [place] / Product Type: POS [id number] documented in this encounter Plan of Treatment Not on file documented as of this encounter Visit Diagnoses Not on filedocumented in this encounter Care Teams Broke Worker Relationship Specialty Start Date End Date Yosi Rush [address] [place] [address] PCP - General Internal Medicine 09/03/21 Ajay Gallagher MD Medical [facility] [address] [place] [address] Specialist Cardiovascular Disease 06/05/22 documented as of this encounter
--- OUTSIDE RECORDS SUMMARY | 2024-07-01 15:46 | XMS_ITS | Encounter Summary ---
Author Organization [facility] Address [address] [place] [address] Care Team Providers Care Last Repairer Name Role Phone Alina Mireles MD Primary Care Provider Un available Yosi Rush Primary Care Provider [phone] Ajay Gallagher MD Unavailable [phone] Encounter Details Date Type Department Care Team Description 02/01/2021 Telephone Pulmonology - [place] [address] [facility] [address] [place] [phone] Jo Howell APRN 175 [facility] [address] [place] [phone] Social History Tobacco Use Types Packs/Day Years Used Date Smoking Tobacco: Former Smokeless Tobacco: Current Chew Alcohol Use Standard Drinks/Week Comments Yes 2 (1 standard drink = 0.6 oz pure alcohol) 5 days per week, 2 beers after work Sex Assigned at Date Recorded Not on file Job Start Date Occupation Industry Not on file Not on file Not on file documented as of this encounter Miscellaneous Notes * Telephone Encounter - Jory Ramesh M.A. - 02/04/2021 3:46 PM EDT Kayla is waiting on insurance approval documented in this encounter Plan of Treatment Not on file documented as of this encounter Visit Diagnoses Not on filedocumented in this encounter Care Teams Last Repairer Relationship Specialty Start Date End Date Alina Mireles MD PCP - General Internal Medicine 10/31/20 Yosi Rush [address] [place] [address] PCP - General Internal Medicine 09/03/21 Ajay Gallagher MD Medical [facility] [address] [place] [address] Specialist Cardiovascular Disease 06/05/22 documented as of this encounter
--- OUTSIDE RECORDS SUMMARY | 2024-07-01 15:46 | XMS_ITS | Encounter Summary ---
Author Organization [facility] Address [address] [place] [address] Care Team Providers Care Smeller Name Role Phone Arnol Richardson MD Primary Care Provider Alina Banegas MD Primary Care Provider Un available Yosi Rush Primary Care Provider [phone] Ajay Gallagher MD Unavailable [phone] Encounter Details Date Type Department Care Team Description 04/25/2017 Release of Information Medical Records [address] [place] [address] Abstract, Provider Social History Tobacco Use Types Packs/Day Years Used Date Smoking Tobacco: Former Cigarettes Q uit: 02/20/2002 Sex Assigned at Date Recorded Not on file Job Start Date Occupation Industry Not on file Not on file Not on file documented as of this encounter Plan of Treatment Not on file documented as of this encounter Visit Diagnoses Not on filedocumented in this encounter Care Teams Smeller Relationship Specialty Start Date End Date Arnol Richardson MD PCP - General Internal Medicine 01/19/17 10/30/20 Alina Mireles MD PCP - General Internal Medicine 10/31/20 Yosi Rush [address] [place] [address] PCP - General Internal Medicine 09/03/21 [address] [place] [address] Specialist Cardiovascular Disease 06/05/22 documented as of this encounter
--- OUTSIDE RECORDS SUMMARY | 2024-07-01 15:46 | XMS_ITS | Encounter Summary ---
Author Organization [facility] Address [address] [place] [address] Care Team Providers Care Nut Grader Name Role Phone Arnol Richardson MD Primary Care Provider Alina Banegas MD Primary Care Provider Un available Yosi Rush Primary Care Provider Ajay Gallagher MD Unavailable [phone] Encounter Details Date Type Department Care Team Description 09/10/2020 Orders Only Medicine/Pediatrics - [address] [phone] Noa Bates PA-C [address] [place] [address] Social History Tobacco Use Types Packs/Day Years [...] Exposure Response Date Recorded In the last month, have you been in contact with someone who was confirmed or suspected to have Coronavirus / COVID-19? No / Unsure 08/29/2020 9:54 AM EDT documented as of this encounter Plan of Treatment Not on file documented as of this encounter Visit Diagnoses Not on filedocumented in this encounter Care Teams Nut Grader Relationship Specialty Start Date End Date Arnol Richardson MD PCP - General Internal Medicine 01/19/17 10/30/20 Alina Mireles MD PCP - General Internal Medicine 10/31/20 Yosi Rush [address] [place] [address] PCP - General Internal Medicine 09/03/21 Ajay Gallagher MD Medical [facility] [address] [place] [address] Specialist Cardiovascular Disease 06/05/22 documented as of this encounter
--- OUTSIDE RECORDS SUMMARY | 2024-07-01 15:46 | XMS_ITS | Encounter Summary ---
Author Organization [facility] Address [address] [place] [address] Care Team Providers Care Flue Cleaner Name Role Phone Arnol Richardson MD Primary Care Provider Alina Banegas MD Primary Care Provider Un available Yosi Rush Primary Care Provider [phone] Ajay Gallagher MD Unavailable [phone] Encounter Details Date Type Department Care Team Description 06/21/2019 Orders Only Medical Records [address] [place] [address] Charlie Bellamy MD Social History Tobacco Use Types Packs/Day [...] Name Priority Date/Time Associated Diagnosis Comments OUTSIDE LAB Routine 06/20/2019 documented in this encounter Results * OUTSIDE LAB (06/20/2019) Charlie Bellamy MD LAB documented in this encounter Visit Diagnoses Not on filedocumented in this encounter Care Teams Flue Cleaner Relationship Specialty Start Date End Date Arnol Richardson MD PCP - General Internal Medicine 01/19/17 10/30/20 Alina Mireles MD PCP - General Internal Medicine 10/31/20 Yosi Rush [address] [place] [address] PCP - General Internal Medicine 09/03/21 [address]ay [address] [place] [address] Specialist Cardiovascular Disease 06/05/22 documented as of this encounter
--- OUTSIDE RECORDS SUMMARY | 2024-07-01 15:46 | XMS_ITS | Encounter Summary ---
Author Organization [facility] Address [address] [place] [address] Care Team Providers Care Ladderman Name Role Phone Yosi Rush Primary Care Provider [phone] Ajay Gallagher MD Unavailable [phone] Reason for Visit * Reason Onset Date Comments Stress Test 07/24/2022 Needs NUC after equivocal ETT Encounter Details Date Type Department Care Team Description 07/24/2022 Telephone Cardio PVCA Diag Testing [address] [facility] [address] [place] [address] Alvina [place] PA-C [address] [place] [address] [phone] Stress Test (Needs NUC after equivocal ETT) Social History Tobacco Use Types Packs/Day Years [...] suspected to have Coronavirus/COVID-19? No / Unsure 07/24/2022 2:05 PM EDT documented as of this encounter Plan of Treatment Scheduled Orders Name Type Priority Associated Diagnoses Orde r Schedule NUCLEAR STRESS WITH EXERCISE, REGADENOSON, OR DOBUTAMINE PER PROTOCOL Cardiology Routine SOB (shortness of breath) on exertion Abnormal EKG Expected: 07/24/2022, Expires: 07/25/2023 documented as of this encounter Visit Diagnoses Diagnosis SOB (shortness of breath) on exertion- Primary Shortness of breath Abnormal EKG Nonspecific abnormal electrocardiogram (ECG) (EKG) documented in this encounter Care Teams Ladderman Relationship Specialty Start Date End Date SharifalizYosi [address] [place] [address] PCP - General Internal Medicine 09/03/21 Ajay Gallagher MD Medical [facility] [address] [place] [address] Specialist Cardiovascular Disease 06/05/22 documented as of this encounter
--- OUTSIDE RECORDS SUMMARY | 2024-07-01 15:46 | XMS_ITS | Encounter Summary ---
Author Organization [facility] Address [address] [place] [address] Care Team Providers Care Head Of Data Name Role Phone Arnol Richardson MD Primary Care Provider Alina Banegas MD Primary Care Provider Un available Yosi Rush Primary Care Provider [phone] Ajay Gallagher MD Unavailable [phone] Encounter Details Date Type Department Care Team Description 12/16/2017 [facility] Medical Records [address] [place] [address] Connie Cortes MD Social History Tobacco Use Types Packs/Day [...] on filedocumented in this encounter Care Teams Head Of Data Relationship Specialty Start Date End Date Arnol Richardson MD PCP - General Internal Medicine 01/19/17 10/30/20 Alina Mireles MD PCP - General Internal Medicine 10/31/20 Yosi Rush [address] [place] [address] PCP - General Internal Medicine 09/03/21 Ajay Gallagher MD [address] [place] [address] Specialist Cardiovascular Disease 06/05/22 documented as of this encounter
--- OUTSIDE RECORDS SUMMARY | 2024-07-01 15:46 | XMS_ITS | Encounter Summary ---
Author Organization [facility] Address [address] [place] [address] Care Team Providers Care Elementary Assistant Principal Name Role Phone Arnol Richardson MD Primary Care Provider Alina Banegas MD Primary Care Provider Un available Yosi Rush Primary Care Provider [phone] Ajay Gallagher MD Unavailable [phone] Encounter Details Date Type Department Care Team Description 08/16/2020 [place] Medicine/Pediatrics - [place] [address] [place] [phone] Arnol Richardson MD Social History Tobacco Use Types Packs/Day [...] on filedocumented in this encounter Care Teams Elementary Assistant Principal Relationship Specialty Start Date End Date Arnol Richardson MD PCP - General Internal Medicine 01/19/17 10/30/20 Alina Mireles MD PCP - General Internal Medicine 10/31/20 Yosi Rush [address] [place] [address] PCP - General Internal Medicine 09/03/21 Ajay Gallagher MD [address] [facility] [address] [place] [address] Specialist Cardiovascular Disease 06/05/22 documented as of this encounter
--- OUTSIDE RECORDS SUMMARY | 2024-07-01 15:46 | XMS_ITS | Encounter Summary ---
Author Organization [facility] Address [address] [place] [address] Care Team Providers Care Stab Setter And Driller Name Role Phone Yosi Rush Primary Care Provider [phone] Ajay Gallagher MD Unavailable [phone] Encounter Details Date Type Department Care Team Description 06/19/2022 SCAN Medical Records [address] [place] [address] [facility] Social History Tobacco Use Types Packs/Day Years [...] suspected to have Coronavirus/COVID-19? No / Unsure 06/19/2022 1:17 PM EST documented as of this encounter Plan of Treatment Not on file documented as of this encounter Visit Diagnoses Not on filedocumented in this encounter Care Teams Stab Setter And Driller Relationship Specialty Start Date End Date Yosi Rush [address] [place] [address] PCP - General Internal Medicine 09/03/21 Ajay Gallagher MD [address] [place] [address] Specialist Cardiovascular Disease 06/05/22 documented as of this encounter
--- OUTSIDE RECORDS SUMMARY | 2024-07-01 15:46 | XMS_ITS | Encounter Summary ---
Author Organization [facility] Address [address] [place] [address] Care Team Providers Care Computer Repair Engineer Name Role Phone Yosi Rush Primary Care Provider [phone] Ajay Gallagher MD Unavailable [phone] Reason for Visit * Reason Comments E-prescribe Rx Request Encounter Details Date Type Department Care Team Description 09/23/2023 Refill Adult Medicine [address] [address] Yosi Rush [address] [place] [address] E-prescribe Rx Request Social History Tobacco Use Types Packs/Day Years [...] encounter Miscellaneous Notes * Telephone Encounter - Aditi Lind - 10/20/2023 2:49 PM EDT Patient was last seen 08/03/2023 and 2 voicemail were left for patient to call the office to schedule a follow up appointment. Will you send a short supply until patient either's makes appointment or is reached to schedule that appointment. 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
--- OUTSIDE RECORDS SUMMARY | 2024-07-01 15:46 | XMS_ITS | Encounter Summary ---
Author Organization [facility] Address [address] [place] [address] Care Team Providers Care Senior Art Director Name Role Phone Arnol Irizarry MD Primary Care Provider Alina Banegas MD Primary Care Provider Un available Yosi Rush Primary Care Provider [phone] Ajay Gallagher MD Unavailable [phone] Reason for Referral * EXTERNAL (Routine) - Authorized/Booked Specialty Diagnoses / Procedures Referred By Contac t Referred To Contact Ophthalmology Diagnoses Diabetes mellitus type 2 with neurological manifestations (HCC) Procedures REFERRAL TO EXTERNAL OPHTHALMOLOGY Arnol Irizarry MD [address] [place] [address] External Ophthalmology Referral ID Status Reason Start Date Expiration Date V isits Requested Visits Authorized SEE NOTE Authorized/B ooked 02/11/2019 1 1 Reason for Visit * Reason Onset Date Comments Cable Television Access Coordinator Feedback 02/11/2019 Dr. Mcgrath Encounter Details Date Type Department Care Team Description 02/11/2019 Telephone Medicine/Pediatrics - [address] [address] Arnol Irizarry MD Cable Television Access Coordinator Feedback (Dr. Mcgrath) Social History Tobacco Use Types Packs/Day Years [...] encounter Miscellaneous Notes * Telephone Encounter - Arnol Irizarry MD - 02/11/2019 4:14 PM EDT Referral signed * Telephone Encounter - Kenneth Laird - 02/11/2019 3:22 PM EDT [facility] Review Request Submission Status [ Save Response to Batch ] Request: [id number] [facility] Trace #: [id number] Subscriber: HARSH RUBIN Submitter : ARNOL IRIZARRY Submitter Type: Provider : 1960 Referral (#[id number]) Specialty Care Review Type: Initial Certification Status : Certified in total Service Type : Medical Care Place Of Service : Office Visits : 6 Service Date : 02/11/2019-02/12/2020 Service Providers Provider Name ID Provider Type MARIS MCGRATH NPI : [id number] Service Provider Please review this patients new referral request. The referral has been pended. Please complete thefollowing: If approved> sign order If denied>please give instructions and route to your practice nursing pool. Practice nurse should inform referrals and the patient if denied. * Telephone Encounter - Sri Li - 02/11/2019 3:17 PM EDT What insurance does the patient have today? Payor: [facility] / [facility]: O $20 [place] [id number] / Product Type: PPO [id number] Effective 02/08/09: [employer] will not retro referral requests over 90 days. If request is for this please instruct patient to call the 800# on their insurance card to appeal. Do not submit a request. Referrals cannot be processed if the insurance is not accurate. If the insurance listed above in red is NO BILLING INFORMATION FOUND FOR THIS ENCOUTNER The patients correct insurance must be obtained and registered in [facility] or their referral can not be processed. Is this a retro request? NO. If yes for what date of service do you need the retro referral? N/A Who is calling to request this referral? margy ragsdale If the caller is not the patient, what is their name? N/A Ask the patient WHO referred them to this specialty: Patient self referred FIRST and LAST NAME of SPECIALIST PATIENT is seeing: maris mcgrath What specialty is this? optamologist DIAGNOSIS Patient is being seen for (Not a body part or a procedure): diabetic Have you seen this SPECIALIST for this PROBLEM/DX before?NO If YES, when: Have you checked REVIEW or the APPT DESK to see if this referral has already been done or has visits left? NO Is this visit:Initial Visit Address of Specialist:[address] [place] [address] Phone # of Specialist:[phone] Fax #: (if applicable):[phone] Does patient have an appointment scheduled?: YES Date of appointment- (including a retro-request): 03/11/19 Is this appointment related to: Not MVA, WC or Surgery related documented in this encounter Plan of Treatment Not on file documented as of this encounter Visit Diagnoses Diagnosis Diabetes mellitus type 2 with neurological manifestations (HCC)- Primary Type II or unspecified type diabetes mellitus with neurological manifestations, not stated as uncontrolled documented in this encounter Care Teams Senior Art Director Relationship Specialty Start Date End Date Arnol Irizarry MD PCP - General Internal Medicine 01/19/17 10/30/20 Alina Mireles MD PCP - General Internal Medicine 10/31/20 Yois Rush [address] [place] [address] PCP - General Internal Medicine 09/03/21 Ajay Gallagher MD Medical [facility] [address] [place] [address] Specialist Cardiovascular Disease 06/05/22 documented as of this encounter
--- OUTSIDE RECORDS SUMMARY | 2024-07-01 15:46 | XMS_ITS | Encounter Summary ---
Author Organization [facility] Address [address] [place] [address] Care Team Providers Care Mechanics Supervisor Name Role Phone Alina Mireles MD Primary Care Provider Un available Yosi Rush Primary Care Provider [phone] Ajay Gallagher MD Unavailable [phone] Reason for Visit * Reason Onset Date Comments Follow-up Appt Unavailable 01/01/2021 to re view sleep study and order CPAP. Encounter Details Date Type Department Care Team Description 01/01/2021 Telephone Pulmonology - [place] 175 [facility] [address] [place] [address] Jo Howell APRN 175 [facility] [address] [place] [address] Follow-up Appt Unavailable (to review sleep study and order CPAP.) Social History Tobacco Use Types Packs/Day Years [...] have Coronavirus / COVID-19? No / Unsure 12/06/2020 8:27 AM EDT documented as of this encounter Plan of Treatment Not on file documented as of this encounter Visit Diagnoses Not on filedocumented in this encounter Care Teams Mechanics Supervisor Relationship Specialty Start Date End Date Alina Mireles MD PCP - General Internal Medicine 10/31/20 Yosi Rush [address] [place] [address] PCP - General Internal Medicine 09/03/21 Ajay Gallagher MD [address] [place] [address] Specialist Cardiovascular Disease 06/05/22 documented as of this encounter
--- OUTSIDE RECORDS SUMMARY | 2024-07-01 15:46 | XMS_ITS | Encounter Summary ---
Author Organization [facility] Address [address] [place] [address] Care Team Providers Care Supervisor Veneer Name Role Phone Arnol Richardson MD Primary Care Provider Alina Banegas MD Primary Care Provider Un available Yosi Rush Primary Care Provider [phone] Ajay Gallagher MD Unavailable [phone] Encounter Details Date Type Department Care Team Description 06/21/2019 Telephone Medical Records [address] [place] [address] Abstract, Provider Social History Tobacco Use Types [...] on filedocumented in this encounter Care Teams Supervisor Veneer Relationship Specialty Start Date End Date Arnol Richardson MD PCP - General Internal Medicine 01/19/17 10/30/20 Alina Mireles MD PCP - General Internal Medicine 10/31/20 Yosi Rush [address] [place] [address] PCP - General Internal Medicine 09/03/21 Ajay Gallagher MD [address] [place] [address] Specialist Cardiovascular Disease 06/05/22 documented as of this encounter
--- OUTSIDE RECORDS SUMMARY | 2024-07-01 15:46 | XMS_ITS | Encounter Summary ---
Author Organization [facility] Address [address] [place] [address] Care Team Providers Care Space Controller Name Role Phone Yosi Rush Primary Care Provider [phone] Ajay Gallagher MD Unavailable [phone] Reason for Visit * Reason Onset Date Comments Nuclear Stress Testing 08/05/2022 Encounter Details Date Type Department Care Team Description 08/05/2022 Telephone Cardio PVC [facility] [address] [place] [id number] [facility] Nuclear Stress Testing Social History Tobacco Use Types Packs/Day Years [...] suspected to have Coronavirus/COVID-19? No / Unsure 08/07/2022 1:28 PM EDT documented as of this encounter Miscellaneous Notes * Telephone Encounter - Lita Maguire - 08/06/2022 11:39 AM EDT Noted, I will contact the patient and notify of exam changes. * Telephone Encounter - Alina Cameron NP - 08/06/2022 9:09 AM EDT Okay to cancel nuke. Ordered stress echo. * Telephone Encounter - Alvina Davis PA-C - 08/06/2022 8:01 AM EDT So are they saying they'll approve a stress echo? * Telephone Encounter - Lita Maguire - 08/06/2022 7:56 AM EDT Good milind Tinsley, I submitted the request for the NUC but it was denied. Is poke with a patient relations representative from [facility] and was advised that a [id number] can be performed. [facility] rep stated they are looking for documentation of a stress echo (recently performed or why patient cannot perform the test). ?? Tracking # [id number] ?? Telephone # * Telephone Encounter - Lita Maguire - 08/06/2022 7:54 AM EDT I apologize Dr. Lennon, thank you for the update. I will notify the correct ordering doctor. * Telephone Encounter - Donnie Lennon MD - 08/05/2022 4:08 PM EDT This is not my patient. Believe this was ordered by Alvina and it is a Gallagher patient. * Telephone Encounter - Lita Maguire - 08/05/2022 9:56 AM EDT Good milind Lennon, I submitted the request for the NUC but it was denied. Is poke with a patient relations representative from [facility] and was advised that a [id number] can be performed. [facility] rep stated they are looking for documentation of a stress echo (recently performed or why patient cannot perform the test). Tracking # [id number] Telephone # documented in this encounter Plan of Treatment Not on file documented as of this encounter Visit Diagnoses Not on filedocumented in this encounter Care Teams Space Controller Relationship Specialty Start Date End Date Yosi Rush [address] [place] [address] PCP - General Internal Medicine 09/03/21 Ajay Gallagher MD Medical [facility] [address] [place] [address] Specialist Cardiovascular Disease 06/05/22 documented as of this encounter
--- OUTSIDE RECORDS SUMMARY | 2024-07-01 15:46 | XMS_ITS | Encounter Summary ---
Author Organization [facility] Address [address] [place] [address] Care Team Providers Care Wig Maker Name Role Phone Yosi Rush Primary Care Provider [phone] Ajay Gallagher MD Unavailable [phone] Encounter Details Date Type Department Care Team Description 08/06/2022 Orders Only Cardio PVC POC [address] [place] [address] Alina Cameron, SUPERVISOR PARTIAL DENTURE DEPARTMENT [address] [place] [id number] SOB (shortness of breath) on exertion (Primary Dx); Claudication (HCC); Abnormal EKG Social History Tobacco Use Types Packs/Day Years [...] Type Priority Associated Diagnoses Orde r Schedule SC ECHO TTHRC R-T 2D W/WO M-MODE REST&STRS CONT ECG Cardiology Routine SOB (shortness of breath) on exertion Abnormal EKG Expected: 08/06/2022, Expires: 08/07/2023 documented as of this encounter Visit Diagnoses Diagnosis SOB (shortness of breath) on exertion- Primary Shortness of breath Claudication (HCC) Peripheral vascular disease, unspecified Abnormal EKG Nonspecific abnormal electrocardiogram (ECG) (EKG) documented in this encounter Care Teams Wig Maker Relationship Specialty Start Date End Date Yosi Rush [address] [place] [address] PCP - General Internal Medicine 09/03/21 Ajay Gallagher MD [address] [place] [address] Specialist Cardiovascular Disease 06/05/22 documented as of this encounter
--- OUTSIDE RECORDS SUMMARY | 2024-07-01 15:46 | XMS_ITS | Encounter Summary ---
Author Organization [facility] Address [address] [place] [address] Care Team Providers Care Customs Opener Verifier Packer Name Role Phone Yosi Rush Primary Care Provider [phone] Ajay Gallagher MD Unavailable [phone] Reason for Visit * Reason Comments E-prescribe Rx Request Encounter Details Date Type Department Care Team Description 11/07/2021 Refill Medicine/Pediatrics - [address] [address] Nury Puckett PA-C E-prescribe Rx Request Social History Tobacco Use [...] encounter Miscellaneous Notes * Telephone Encounter - Idalia Keith M.A. - 11/07/2021 3:59 PM EDT Date of last office visit was 01/16/21. Pended appt for 12/17/21 with new PCP Lab Results Component Value Date NA 137 08/29/2020 K 4.4 08/29/2020 CO2 26 08/29/2020 CL 106 08/29/2020 BUN 6 08/29/2020 CREAT 1.11 08/29/2020 GLU 183 08/29/2020 CA 9.2 08/29/2020 GFR > 60 08/29/2020 * Telephone Encounter - Carol Roe Brad - 11/07/2021 12:36 PM EDT Patient would like script to be: E-PRESCRIBED/FAXED TO PHARMACY WHEN WAS THE PATIENT'S LAST APPOINTMENT IN ADULT MEDICINE? 01-16-21 WHEN WAS THE LAST TIME THE PATIENT SAW THEIR PCP? Has not seen pcp Does patient have an upcoming appointment? Yes 12-17-21 pcp (THE MEDICATION REQUESTED IS ON THE MED LIST ABOVE) All of the medications requested were on the CURRENT MEDS list Did you check the Pharmacy information above?: YES Patient wants: 90 -day supply Is this a mail order prescription request ? NO If the refill is from a FAXED refill request what is the RX # listed on the fax? N/A Patients current insurance carrier is: Payor: [facility] / Plan: [facility] / Product Type: POS [id number] documented in this encounter Plan of Treatment Not on file documented as of this encounter Visit Diagnoses Diagnosis Essential hypertension Unspecified essential hypertension Diabetes mellitus type 2 with neurological manifestations (HCC) Type II or unspecified type diabetes mellitus with neurological manifestations, not stated as uncontrolled documented in this encounter Care Teams Customs Opener Verifier Packer Relationship Specialty Start Date End Date Yosi Rush [address] [place] [address] PCP - General Internal Medicine 09/03/21 Ajay Gallagher MD [address] [place] [address] Specialist Cardiovascular Disease 06/05/22 documented as of this encounter
--- OUTSIDE RECORDS SUMMARY | 2024-07-01 15:46 | XMS_ITS | Encounter Summary ---
Author Organization [facility] Address [address] [place] [address] Care Team Providers Care Biofuels Processing Technician Name Role Phone Yosi Rush Primary Care Provider [phone] Ajay Gallagher MD Unavailable [phone] Reason for Visit * Reason Comments E-prescribe Rx Request Encounter Details Date Type Department Care Team Description 02/09/2024 Refill Endocrinology [address] [address] Perri Pinto PA-C [address] [place] [address] E-prescribe Rx Request Social History Tobacco Use [...] uncontrolled documented in this encounter Care Teams Biofuels Processing Technician Relationship Specialty Start Date End Date Yosi Rush [address] [place] [address] PCP - General Internal Medicine 09/03/21 Ajay Gallagher MD [address] [place] [address] Specialist Cardiovascular Disease 06/05/22 documented as of this encounter
--- OUTSIDE RECORDS SUMMARY | 2024-07-01 15:46 | XMS_ITS | Encounter Summary ---
Author Organization [facility] Address [address] [place] [address] Care Team Providers Care Computer Forensic Examiner Name Role Phone Arnol Richardson MD Primary Care Provider Alina Banegas MD Primary Care Provider Un available Yosi Rush Primary Care Provider [phone] Ajay Gallagher MD Unavailable Encounter Details Date Type Department Care Team Description 02/03/2017 Release of Information Medical Records [address] [place] [address] Abstract, Provider Social History Tobacco Use Types Packs/Day Years Used Date Smoking Tobacco: Never Assessed Sex Assigned at Date Recorded Not on file Job Start Date Occupation Industry Not on file Not on file Not on file documented as of this encounter Plan of Treatment Not on file documented as of this encounter Visit Diagnoses Not on filedocumented in this encounter Care Teams Computer Forensic Examiner Relationship Specialty Start Date End Date Arnol Richardson MD PCP - General Internal Medicine 01/19/17 10/30/20 Alina Mireles MD PCP - General Internal Medicine 10/31/20 Yosi Rush [address] [place] [address] PCP - General Internal Medicine 09/03/21 Ajay Gallagher MD [address] [place] [address] Specialist Cardiovascular Disease 06/05/22 documented as of this encounter
--- OUTSIDE RECORDS SUMMARY | 2024-07-01 15:46 | XMS_ITS | Encounter Summary ---
Author Organization [facility] Address [address] [place] [address] Care Team Providers Care Tool Crib Supervisor Name Role Phone Arnol Richardson MD Primary Care Provider Alina Banegas MD Primary Care Provider Un available Yosi Rush Primary Care Provider [phone] Ajay Gallagher MD Unavailable [phone] Reason for Visit * Reason Onset Date Comments Faxed Refill 06/14/2020 Encounter Details Date Type Department Care Team Description 06/14/2020 Refill Medicine/Pediatrics - [address] [phone] Arnol Richardson MD Faxed Refill Social History Tobacco Use Types Packs/Day Years [...] encounter Miscellaneous Notes * Telephone Encounter - Vianca Whitlock L.P.N. - 06/14/2020 3:17 PM EST UTD please review and sign * Telephone Encounter - Annemarie Suggs - 06/14/2020 3:13 PM EST Patient would like script to be: E-PRESCRIBED/FAXED TO PHARMACY WHEN WAS THE PATIENT'S LAST APPOINTMENT IN ADULT MEDICINE? 05/22/20 WHEN WAS THE LAST TIME THE PATIENT SAW THEIR PCP? 12/13/19 Does patient have an upcoming appointment? NO (THE MEDICATION REQUESTED IS ON THE MED LIST ABOVE) All of the medications requested were on the CURRENT MEDS list Did you check the Pharmacy information above?: YES Patient wants: 30 -day supply Is this a mail order prescription request ? NO If the refill is from a FAXED refill request what is the RX # listed on the fax? N/A Patients current insurance carrier is: Payor: [facility] / Plan: PPO $20 [place] [id number] / Product Type: PPO [id number] documented in this encounter Plan of Treatment Not on file documented as of this encounter Visit Diagnoses Not on filedocumented in this encounter Care Teams Tool Crib Supervisor Relationship Specialty Start Date End Date Arnol Richardson MD PCP - General Internal Medicine 01/19/17 10/30/20 Alina Mireles MD PCP - General Internal Medicine 10/31/20 Yosi Rush [address] [place] [address] PCP - General Internal Medicine 09/03/21 Ajay Gallagher MD [address] [place] [address] [place] [address] Specialist Cardiovascular Disease 06/05/22 documented as of this encounter
--- OUTSIDE RECORDS SUMMARY | 2024-07-01 15:46 | XMS_ITS | Encounter Summary ---
Author Organization [facility] Address [address] [place] [address] Care Team Providers Care Emu Farmer Name Role Phone Yosi Rush Primary Care Provider [phone] Ajay Gallagher MD Unavailable [phone] Encounter Details Date Type Department Care Team Description 05/10/2023 Release of Information Medical Records [address] [place] [address] [facility] Social History Tobacco Use Types Packs/Day Years [...] on filedocumented in this encounter Care Teams Emu Farmer Relationship Specialty Start Date End Date Yosi Rush [address] [place] [address] PCP - General Internal Medicine 09/03/21 Ajay Gallagher MD Medical [facility] [address] [place] [address] Specialist Cardiovascular Disease 06/05/22 documented as of this encounter
--- OUTSIDE RECORDS SUMMARY | 2024-07-01 15:46 | XMS_ITS | Encounter Summary ---
Author Organization [facility] Address [address] [place] [address] Care Team Providers Care Char Filter Operator Helper Name Role Phone Arnol Richardson MD Primary Care Provider Alina Banegas MD Primary Care Provider Un available Yosi Rush Primary Care Provider [phone] Ajay Gallagher MD Unavailable [phone] Encounter Details Date Type Department Care Team Description 08/31/2017 Banking Consultant Report Medical Records [address] [place] [address] Olman Alfonso MD Social History Tobacco Use [...] on filedocumented in this encounter Care Teams Char Filter Operator Helper Relationship Specialty Start Date End Date Arnol Richardson MD PCP - General Internal Medicine 01/19/17 10/30/20 Alina Mireles MD PCP - General Internal Medicine 10/31/20 Yosi Rush [address] [place] [address] PCP - General Internal Medicine 09/03/21 Ajay Gallagher MD [address] [place] [address] Specialist Cardiovascular Disease 06/05/22 documented as of this encounter
[2024-07-01 15:47] VITALS: BP 126/74; PULSE 104; TEMP 36.6; O2SAT 94; BMI 28.5
== END 2024-07-01 16:12 | disposition home or self-care (01) ==
PROVIDERS: PCP Internal Medicine; Visit Provider Physician Assistant Medical
DX: R07.89 Other chest pain (principal); J44.9 Chronic obstructive pulmonary disease, unspecified; E11.40 Type 2 diabetes mellitus with diabetic neuropathy, unspecified; R10.9 Unspecified abdominal pain; R10.12 Left upper quadrant pain; M54.50 Low back pain, unspecified; I10 Essential (primary) hypertension

== ENCOUNTER → 2024-07-01 15:42 | Outpatient (BNVA) | payer OTHER, SELFPAY | PROVIDERS: PCP Internal Medicine; Visit Provider Physician Assistant Medical | DX: R07.89 Other chest pain (principal); R10.12 Left upper quadrant pain; M54.50 Low back pain, unspecified; J44.9 Chronic obstructive pulmonary disease, unspecified; I10 Essential (primary) hypertension; E11.40 Type 2 diabetes mellitus with diabetic neuropathy, unspecified | CPT/HCPCS: 96127 ==

== ENCOUNTER → 2024-07-28 08:00 | Outpatient (REF) | payer OTHER, SELFPAY ==
--- NOTE | 2024-07-28 08:03 | CA_ITS ---
Transthoracic Echocardiogram Patient (Last, First, Middle): Harsh Rubin R Gender: Male Date of : 1960 Age: 63 Procedure Date: 07/28/2024 Procedure Type: Transthoracic Echocardiogram Location: OP Height: 177.8 cm Weight: 89.81 kg BSA: 2.08 m2 Heart Rate: bpm BP: 126 / 74 mmHg Drilling And Production Superintendent: PAN Referring MD: Lesli Amador PA-C Activities Director Scouting: Andrew Morales MD Symptoms: R07.89 - Other chest pain Study Quality: Technically Difficult ECG Rhythm: Sinus Conclusions: - 1. Technically difficult study despite use of contrast agent 2. Normal LV ejection fraction of 60-65% with impaired relaxation filling pattern 3. Limited evaluation of cardiac valves with cardiac valvular Dopplers within normal limits Findings Procedure Information Contrast agent, definity, is being given per protocol without apparent complications. Left Ventricle Normal left ventricular size, thickness, and systolic function. The visually estimated ejection fraction is between 60-65%. Spectral Doppler is indicative of an impaired relaxation filling pattern. Right Ventricle The right ventricle was not well visualized. Atria The left atrium is normal in size. Interatrial shunt cannot be excluded. The right atrium was not well visualized. Aortic Valve The aortic valve was not well visualized. There is no aortic valve stenosis. There is no aortic valve regurgitation. Mitral Valve The mitral valve was not well visualized. There is no mitral valve regurgitation. There is no mitral valve stenosis. Pulmonic Valve The pulmonic valve was not well visualized. Tricuspid Valve The tricuspid valve was not well visualized. Tricuspid regurgitation envelope is inadequate for calculation of right ventricular systolic pressure. Normal right atrial pressure. Great Vessels The aorta was not well visualized. The pulmonary artery was not well visualized. Venous The inferior vena cava is normal in size and collapses greater than 50% with inspiration. Pericardium/Pleural The pericardium was not well visualized. Prior Study Comparison No prior study available for comparison. Measurements 2D Linear Measurements IVSd: 0.95 0.6-0.9/0.6-1.0 cm LVIDd: 3.89 3.9-5.3/4.2-5.9 cm LVIDd Index: 1.87 2.4-3.2/2.2-3.1 cm/m2 LVIDs: 2.85 2.0-3.6 cm LVPWd: 1.16 0.7-1.1 cm LA Diam: 2.80 2.7-3.8/3.0-4.0 cm LAIDs Index: 1.35 1.5-2.3 cm/m2 LV Mass: 163.42 67-162/88-224 g LV Mass Index: 78.57 43-95/49-115 g/m2 LVOT Diam: 2.30 3.0+(-)1.3 cm 2D Systolic Function EF 4C: 61.50 >55% EF 2C: 59.00 >55% EF BiP: 60.70 >55% Mitral Valve MV Pk E: 0.73 MV PK A: 0.93 MV Decel Time: 213.00 E/A: 0.80 E'Lateral: 9.68 E'Medial: 6.96 E/E' Med: 10.40 E/E' Lat: 7.50 PHT: 62.00 MVA PHT: 3.55 Decel [place]: 3.42 Aortic Valve AoV Pk Scar: 1.14 AoV Mn Scar: 0.74 AoV VTI: 0.20 AoV Pk Grad: 5.00 Aov Mn Grad: 2.00 ADEN Cont.VTI: 3.98 LVOT LVOT Pk Scar: 0.99 LVOT Mn Scar: 0.65 LVOT VTI: 0.19 LVOT Pk Grad: 4.00 LVOT Mn Grad: 2.00 LVOT Diam: 2.30 LVOT Area: 4.15 Diastolic Function MV Pk E: 0.73 MV Pk A: 0.93 E/A: 0.80 E'Medial: 6.96 E/E' Med: 10.40 E' Laterial: 9.68 E/E' Lat: 7.50 Right Ventricle TAPSE (mm): 18.90 TVS' Scra: 13.30 Tricuspid Valve RA Press: 3.00 Great Vessels Aorta Sinus of Valsalva: 3.70 2.0-3.5 cm Ao Asc: 3.60 2.1-3.4 cm Updated in Other Vendor System with Status of Final Andrew Morales MD electronically signed on 07/29/2024 2:10:31 PM with status of Final
--- OUTSIDE RECORDS SUMMARY | 2024-07-28 08:04 | XMS_ITS | Encounter Summary ---
Author Organization [facility] Address [address] [place] [address] Care Team Providers Care Mill Supervisor Name Role Phone Yosi Rush Primary Care Provider [phone] Ajay Gallagher MD Unavailable [phone] Reason for Visit * Reason Onset Date Comments medication problems 08/11/2022 Encounter Details Date Type Department Care Team Description 08/11/2022 Telephone Adult Medicine [address] [address] Yosi Rush [address] [place] [phone] medication problems Social History Tobacco Use Types [...] not the caller who is? Faxed from [facility] Is this a NEW medication?: How long has the patient been taking this medication? Who prescribed this medication for the patient? Yosi Rush Who is patients PCP?: Yosi Rush Payor: [facility] / Plan: POS $20 [place] / Product Type: POS [id number] documented in this encounter Plan of Treatment Not on file documented as of this encounter Visit Diagnoses Not on filedocumented in this encounter Care Teams Mill Supervisor Relationship Specialty Start Date End Date Yosi Rush [address] [place] [address] PCP - General Internal Medicine 09/03/21 Ajay Gallagher MD Medical [facility] [address] [place] [address] Specialist Cardiovascular Disease 06/05/22 documented as of this encounter
--- OUTSIDE RECORDS SUMMARY | 2024-07-28 08:04 | XMS_ITS | Clinical Summary ---
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 Overview (02/16/2024): [facility]rology Obstructive sleep apnea 12/31/2020 Overview (02/16/2024): [facility] Home Sleep Apnea Test: Date [...] Allergic rhinitis 02/26/2017 Genital herpes simplex 02/26/2017 Immunizations Name Administration Dates Next Due Influenza [...] 06/18/2022 Type 2 diabetes mellitus with obesity ([facility]) 06/13/2022 Sleep apnea 12/31/2020 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 Elevated LFTs 09/17/2020 [...] Results * Diabetes Foot Exam (08/03/2023) Pathologist [facility] Diabetes: Annual Foot Exam abstracted Historical Provider HEALTH MAINTENANCE Final Result * (ABNORMAL) Hemoglobin A1c (12/08/2022) [facility] Hemoglobin A1C 6.6(A) <=6.5 % Blood Venous blood specimen / Unknown Historical Provider LAB BLOOD ORDERABLES Paz l Result * Urine Albumin Creatinine Ratio (05/20/2022) Pathologist [facility] Urine Albumin Creatinine Ratio abstracted Historical Provider HEALTH MAINTENANCE Final Result * Annual BMP Blood Test (05/20/2022) [facility] Annual BMP Blood Test abstarcted [facility] Provider HEALTH MAINTENANCE Final Result * Lipid panel (05/20/2022) [facility] LDL/HDL Ratio 3 0 - 4 Triglycerides 144 0 - 150 mg/dL Cholesterol 150 0 - 200 mg/dL HDL 52 >=40 mg/dL LDL Cholesterol 70 0 - 100 mg/dL Blood Venous blood specimen / Unknown Result [facility] Provider LAB BLOOD ORDERABLES Paz l Result * Colonoscopy (06/20/2019) [facility] Colonoscopy abstracted, no interpretation Anatomical Region Laterality Modality Other [facility] Provider HEALTH MAINTENANCE Final Result * Hepatitis C Screening (05/02/2019) [facility] Hepatitis C Screening abstracted [facility] Provider HEALTH MAINTENANCE Final Result from Last 3 Months or Most Recently Relevant to Health Maintenance Insurance [facility] Care Teams Bioinformatics Analyst Relationship Specialty Start Date End Date Sylvia Stoner MD [address] [place] [address] , [address] [facility] Physician Associ D/B/A: [facility] ROSY Zazueta PCP - General Internal Medicine 03/11/24
--- OUTSIDE RECORDS SUMMARY | 2024-07-28 08:04 | XMS_ITS | Encounter Summary ---
Author Organization [facility] Address [address] [place] [address] Care Team Providers Care Art Gallery Director Name Role Phone Arnol Richardson MD Primary Care Provider Alina Banegas MD Primary Care Provider Un available Yosi Rush Primary Care Provider [phone] Ajay Gallagher MD Unavailable [phone] Encounter Details Date Type Department Care Team Description 08/16/2020 [facility] [place] [address] [place] [phone] Arnol Richardson MD Social History Tobacco Use [...] on filedocumented in this encounter Care Teams Art Gallery Director Relationship Specialty Start Date End Date Arnol Richardson MD PCP - General Internal Medicine 01/19/17 10/30/20 Alina Mireles MD PCP - General Internal Medicine 10/31/20 Yosi Rush [address] [place] [address] PCP - General Internal Medicine 09/03/21 Ajay Gallagher MD [address] [facility] [address] [place] [address] Specialist Cardiovascular Disease 06/05/22 documented as of this encounter
--- OUTSIDE RECORDS SUMMARY | 2024-07-28 08:04 | XMS_ITS | Encounter Summary ---
Author Organization [facility] Address [address] [place] [address] Care Team Providers Care General Technician Name Role Phone Arnol Richardson MD Primary Care Provider Alian Banegas MD Primary Care Provider Un available Yosi Rush Primary Care Provider [phone] Ajay Gallagher MD Unavailable [phone] Encounter Details Date Type Department Care Team Description 07/07/2017 Fan Blade Truer Report Medical Records [address] [place] [address] Olman Alfonso MD Social History Tobacco Use [...] on filedocumented in this encounter Care Teams General Technician Relationship Specialty Start Date End Date Arnol Richardson MD PCP - General Internal Medicine 01/19/17 10/30/20 Alina Mireles MD PCP - General Internal Medicine 10/31/20 Yosi Rush [address] [place] [address] PCP - General Internal Medicine 09/03/21 Ajay Gallagher MD [address] [place] [address] Specialist Cardiovascular Disease 06/05/22 documented as of this encounter
--- OUTSIDE RECORDS SUMMARY | 2024-07-28 08:04 | XMS_ITS | Encounter Summary ---
Author Organization [facility] Address [address] [place] [address] Care Team Providers Care Hydrographer Name Role Phone Yosi Rush Primary Care Provider [phone] Ajay Gallagher MD Unavailable [phone] Encounter Details Date Type Department Care Team Description 06/19/2022 SCAN Medical Records [address] [place] [address] [facility] Social History Tobacco Use Types Packs/Day [...] on filedocumented in this encounter Care Teams Hydrographer Relationship Specialty Start Date End Date Yosi Rush [address] [place] [address] PCP - General Internal Medicine 09/03/21 Ajay Gallagher MD [address] [place] [address] Specialist Cardiovascular Disease 06/05/22 documented as of this encounter
--- OUTSIDE RECORDS SUMMARY | 2024-07-28 08:05 | XMS_ITS | Encounter Summary ---
Author Organization [facility] Address [address] [place] [address] Care Team Providers Care Dredge Operator Name Role Phone Yosi Rush Primary Care Provider [phone] Ajay Gallagher MD Unavailable [phone] Encounter Details Date Type Department Care Team Description 10/04/2021 Leach Cell Operator Report Medical Records [address] [place] [address] [facility] Urology [address] [place] [address] [id number] Social History Tobacco Use Types Packs/Day Years [...] on filedocumented in this encounter Care Teams Dredge Operator Relationship Specialty Start Date End Date Yosi Rush [address] [place] [address] PCP - General Internal Medicine 09/03/21 Ajay Gallagher MD 2 [facility] [address] [place], [place] [phone] Specialist Cardiovascular Disease 06/05/22 documented as of this encounter
--- OUTSIDE RECORDS SUMMARY | 2024-07-28 08:05 | XMS_ITS | Encounter Summary ---
Author Organization [facility] Address [address] [place] [address] Care Team Providers Care Tin Tie Machine Operator Automatic Name Role Phone Arnol Richardson MD Primary Care Provider Alina Banegas MD Primary Care Provider Un available Yosi Rush Primary Care Provider [phone] Ajay Gallagher MD Unavailable Encounter Details Date Type Department Care Team Description 01/29/2018 Semiconductor Packages Tester Report Medical Records [address] [place] [address] Olman Alfonso MD Social History Tobacco Use [...] on filedocumented in this encounter Care Teams Tin Tie Machine Operator Automatic Relationship Specialty Start Date End Date Arnol Richardson MD PCP - General Internal Medicine 01/19/17 10/30/20 Alina Mireles MD PCP - General Internal Medicine 10/31/20 Yosi Rush [address] [place] [address] PCP - General Internal Medicine 09/03/21 Ajay Gallagher MD [address] [place] [address] Specialist Cardiovascular Disease 06/05/22 documented as of this encounter
--- OUTSIDE RECORDS SUMMARY | 2024-07-28 08:05 | XMS_ITS | Encounter Summary ---
Author Organization [facility] Address [address] [place] [address] Care Team Providers Care Broadcast Maintenance Engineer Name Role Phone Arnol Richardson MD Primary Care Provider Alina Banegas MD Primary Care Provider Un available Yosi Rush Primary Care Provider [phone] Ajay Gallagher MD Unavailable [phone] Encounter Details Date Type Department Care Team Description 09/20/2020 Telephone Medicine/Pediatrics - [address] [address] Noa Bates PA-C [address] [place] [address] Social History Tobacco Use Types Packs/Day Years [...] have Coronavirus / COVID-19? No / Unsure 09/17/2020 7:52 AM EDT documented as of this encounter Miscellaneous Notes * Telephone Encounter - Sparkle Clay - 09/24/2020 11:51 AM EDT Patient referred to [facility] office will contact patient and I did notify him of this * Telephone Encounter - Noa Bates PA-C - 09/20/2020 1:08 PM EDT Can someone please look into patient's urology referral. He had US of the bladder done. documented in this encounter Plan of Treatment Not on file documented as of this encounter Visit Diagnoses Not on filedocumented in this encounter Care Teams Broadcast Maintenance Engineer Relationship Specialty Start Date End Date Arnol Richardson MD PCP - General Internal Medicine 01/19/17 10/30/20 Alina Mireles MD PCP - General Internal Medicine 10/31/20 Yosi Rush [address] [place] [address] PCP - General Internal Medicine 09/03/21 Ajay Gall[address] MD [address] [place] [address] Specialist Cardiovascular Disease 06/05/22 documented as of this encounter
--- OUTSIDE RECORDS SUMMARY | 2024-07-28 08:05 | XMS_ITS | Encounter Summary ---
Author Organization [facility] Address [address] [place] [address] Care Team Providers Care Radiology Clerk Name Role Phone Yosi Rush Primary Care Provider [phone] Ajay Gallagher MD Unavailable [phone] Reason for Visit * Reason Onset Date Comments Stress Test 07/24/2022 Needs NUC after equivocal ETT Encounter Details Date Type Department Care Team Description 07/24/2022 Telephone Cardio [facility] Diag Testing [address] [facility] [address] [place] [address] Alvina Davis PA-C [address] [place] [address] [id number] Stress Test (Needs NUC after equivocal ETT) [...] (EKG) documented in this encounter Care Teams Radiology Clerk Relationship Specialty Start Date End Date SharifalizYosi [address] [place] [address] PCP - General Internal Medicine 09/03/21 Ajay Gallagher MD Medical [facility] [address] [place] [address] Specialist Cardiovascular Disease 06/05/22 documented as of this encounter
--- OUTSIDE RECORDS SUMMARY | 2024-07-28 08:05 | XMS_ITS | Encounter Summary ---
Author Organization [facility] Address [address] [place] [address] Care Team Providers Care Dot Etcher Name Role Phone Arnol Richardson MD Primary Care Provider Alina Banegas MD Primary Care Provider Un available Yosi Rush Primary Care Provider Ajay Gallagher MD Unavailable [phone] Encounter Details Date Type Department Care Team Description 06/21/2019 Orders Only Medical Records [address] [place] [address] Charlie Bellamy MD Social History Tobacco Use [...] on filedocumented in this encounter Care Teams Dot Etcher Relationship Specialty Start Date End Date Arnol Richardson MD PCP - General Internal Medicine 01/19/17 10/30/20 Alina Mireles MD PCP - General Internal Medicine 10/31/20 Yosi Rush [address] [place] [address] PCP - General Internal Medicine 09/03/21 Ajay [address] [place] [address] Specialist Cardiovascular Disease 06/05/22 documented as of this encounter
--- OUTSIDE RECORDS SUMMARY | 2024-07-28 08:05 | XMS_ITS | Encounter Summary ---
Author Organization [facility] Address [address] [place] [address] Care Team Providers Care Log Turner Name Role Phone Yosi Rush Primary Care Provider [phone] Ajay Gallagher MD Unavailable [phone] Encounter Details Date Type Department Care Team Description 01/18/2022 SCAN Medical Records [address] [place] [address] Abstract, Provider Social History Tobacco Use Types [...] Name Priority Date/Time Associated Diagnosis Comments OUTSIDE CT Routine 01/18/[address] Routine 01/18/2022 OUTSIDE LAB Routine 01/18/2022 documented in this encounter Results * OUTSIDE CT (01/18/2022) Provider Abstract RADIOLOGY * OUTSIDE CT (01/18/2022) Provider Abstract RADIOLOGY * OUTSIDE LAB (01/18/2022) Provider Abstract LAB documented in this encounter Visit Diagnoses Not on filedocumented in this encounter Care Teams Log Turner Relationship Specialty Start Date End Date Yosi Rush [address] [place] [address] PCP - General Internal Medicine 09/03/21 Ajay Gallagher MD Medical [facility] [address] [place] [address] Specialist Cardiovascular Disease 06/05/22 documented as of this encounter
--- OUTSIDE RECORDS SUMMARY | 2024-07-28 08:05 | XMS_ITS | Encounter Summary ---
Author Organization [facility] Address [address] [place] [address] Care Team Providers Care Wood Heel Flap Rubber Name Role Phone Yosi Rush Primary Care Provider [phone] Ajay Gallagher MD Unavailable [phone] Reason for Visit * Reason Comments E-prescribe Rx Request Encounter Details Date Type Department Care Team Description 09/23/2023 Refill Adult Medicine [address] [address] Yosi Rush [address] [place] [address] E-prescribe Rx Request Social History Tobacco Use [...] (HCC) documented in this encounter Care Teams Wood Heel Flap Rubber Relationship Specialty Start Date End Date Yosi Rush [address] [place] [address] PCP - General Internal Medicine 09/03/21 Ajay Gallagher MD Medical [facility] [address] [place] [address] Specialist Cardiovascular Disease 06/05/22 documented as of this encounter
--- OUTSIDE RECORDS SUMMARY | 2024-07-28 08:05 | XMS_ITS | Encounter Summary ---
Author Organization [facility] Address [address] [place] [address] Care Team Providers Care Plastic Joint Maker Name Role Phone Arnol Irizarry MD Primary Care Provider Alina Banegas MD Primary Care Provider Un available Yosi Rush Primary Care Provider [phone] Ajay Gallagher MD Unavailable [phone] Reason for Referral * EXTERNAL (Routine) - Authorized/Booked Specialty Diagnoses / Procedures Referred By Contac t Referred To Contact Ophthalmology Diagnoses Diabetes mellitus type 2 with neurological manifestations (HCC) Procedures REFERRAL TO EXTERNAL OPHTHALMOLOGY Arnol Irizarry MD [address] [place] [address] External Ophthalmology Referral ID Status Reason Start Date Expiration Date V isits Requested Visits Authorized SEE NOTE Authorized/B ooked 02/11/2019 1 1 Reason for Visit * Reason Onset Date Comments Credit Adjuster Feedback 02/11/2019 Dr. Mcgrath Encounter Details Date Type Department Care Team Description 02/11/2019 Telephone Medicine/Pediatrics - [address] [address] Arnol Irizarry MD Credit Adjuster Feedback (Dr. Mcgrath) Social History Tobacco Use [...] Kenneth Laird - 02/11/2019 3:22 PM EDT [facility]CS Review Request Submission Status [ Save Response to Batch ] Request: [id number] [facility] Trace #: [id number] Subscriber: HARSH RUBIN Submitter : ARNOL IRIZARRY Submitter Type: Provider : 1960 Referral (#[id number]) Specialty Care Review Type: Initial Certification Status : Certified in total Service Type : Medical Care Place Of Service : Office Visits : 6 Service Date : 02/11/2019-02/12/2020 Service Providers Provider Name ID Provider Type MARIS MCGRATH NPI : [id number] Service Provider Please review this patients new referral request. The referral has been pended. Please complete thefollowing: If approved> sign order If denied>please give instructions and route to your practice nursing pool. Practice nurse should inform referrals and the patient if denied. * Telephone Encounter - Sri Li - 02/11/2019 3:17 PM EDT What insurance does the patient have today? Payor: [facility] / [facility]: O $20 [place] 9185 / Product Type: PPO [id number] Effective 02/08/09: BCBS will not retro referral [...] insurance must be obtained and registered in [facility] or their referral can not be processed. [...] NO Is this visit:Initial Visit Address of Specialist:[address] [place] [address] Phone # of Specialist:[phone] Fax #: (if applicable):[phone] Does patient have an appointment scheduled?: YES [...] uncontrolled documented in this encounter Care Teams Plastic Joint Maker Relationship Specialty Start Date End Date Arnol Irizarry MD PCP - General Internal Medicine 01/19/17 10/30/20 Alina Mireles MD PCP - General Internal Medicine 10/31/20 Yosi Rush [address] [place] [address] PCP - General Internal Medicine 09/03/21 Ajay Gallagher MD Medical [facility] [address] [place] [address] Specialist Cardiovascular Disease 06/05/22 documented as of this encounter
--- OUTSIDE RECORDS SUMMARY | 2024-07-28 08:05 | XMS_ITS | Encounter Summary ---
Author Organization [facility] Address [address] [place] [address] Care Team Providers Care Tiller Worker Name Role Phone Arnol Richardson MD Primary Care Provider Alina Banegas MD Primary Care Provider Un available Yosi Rush Primary Care Provider [phone] Ajay Gallagher MD Unavailable [phone] Encounter Details Date Type Department Care Team Description 10/14/2017 SCAN Medical Records [address] [place] [address] Abstract, Provider Social History Tobacco Use Types [...] on filedocumented in this encounter Care Teams Tiller Worker Relationship Specialty Start Date End Date Arnol Richardson MD PCP - General Internal Medicine 01/19/17 10/30/20 Alina Mireles MD PCP - General Internal Medicine 10/31/20 Yosi Rush [address] [place] [address] PCP - General Internal Medicine 09/03/21 Ajay Gallagher MD Medical [facility] [address] [place] [address] Specialist Cardiovascular Disease 06/05/22 documented as of this encounter
--- OUTSIDE RECORDS SUMMARY | 2024-07-28 08:05 | XMS_ITS | Encounter Summary ---
Author Organization [facility] Address [address] [place] [address] Care Team Providers Care Occ Therapist Name Role Phone Alina Mireles MD Primary Care Provider Un available Yosi Rush Primary Care Provider [phone] Ajay Gallagher MD Unavailable [phone] Reason for Visit * Reason Onset Date Comments Follow-up Appt Unavailable 01/01/2021 to re view sleep study and order CPAP. Encounter Details Date Type Department Care Team Description 01/01/2021 Telephone Pulmonology - [place] [address] [facility] [address] [place] [address] Jo Howell APRN [address] [facility] [address] [place] [address] Follow-up Appt Unavailable (to review [...] on filedocumented in this encounter Care Teams Occ Therapist Relationship Specialty Start Date End Date Alina Mireles MD PCP - General Internal Medicine 10/31/20 Yosi Rush [address] [place] [address] PCP - General Internal Medicine 09/03/21 Ajay Gallagher MD [address] [place] [address] Specialist Cardiovascular Disease 06/05/22 documented as of this encounter
--- OUTSIDE RECORDS SUMMARY | 2024-07-28 08:05 | XMS_ITS | Encounter Summary ---
Author Organization [facility] Address [address] [place] [address] Care Team Providers Care Nitrating Acid Mixer Name Role Phone Arnol Richardson MD Primary Care Provider Alina Banegas MD Primary Care Provider Un available Yosi Rush Primary Care Provider [phone] Ajay Gallagher MD Unavailable [phone] Encounter Details Date Type Department Care Team Description 02/03/2017 Release of Information Medical Records [address] [place] [address] Abstract, Provider Social History Tobacco Use Types Packs/Day Years Used Date Smoking Tobacco: Never Assessed Sex Assigned at Date Recorded Not on file Job Start Date Occupation Industry Not on file Not on file Not on file documented as of this encounter Plan of Treatment Not on file documented as of this encounter Visit Diagnoses Not on filedocumented in this encounter Care Teams Nitrating Acid Mixer Relationship Specialty Start Date End Date Arnol Richardson MD PCP - General Internal Medicine 01/19/17 10/30/20 Alina Mireles MD PCP - General Internal Medicine 10/31/20 Yosi Rush [address] [place] [address] PCP - General Internal Medicine 09/03/21 Ajay Gallagher MD [address] [place] [address] Specialist Cardiovascular Disease 06/05/22 documented as of this encounter
--- OUTSIDE RECORDS SUMMARY | 2024-07-28 08:05 | XMS_ITS | Encounter Summary ---
Author Organization [facility] Address [address] [place] [address] Care Team Providers Care Receiving Coordinator Name Role Phone Arnol Richardson MD Primary Care Provider Alina Banegas MD Primary Care Provider Un available Yosi Rush Primary Care Provider [phone] Ajay Gallagher MD Unavailable [phone] Encounter Details Date Type Department Care Team Description 04/07/2018 Communication Analyst Report Medical Records [address] [place] [address] Olman Alfonso MD Social History Tobacco Use [...] on filedocumented in this encounter Care Teams Receiving Coordinator Relationship Specialty Start Date End Date Arnol Richardson MD PCP - General Internal Medicine 01/19/17 10/30/20 Alina Mireles MD PCP - General Internal Medicine 10/31/20 Yosi Rush [address] [place] [address] PCP - General Internal Medicine 09/03/21 Ajay Gallagher MD [address] [place] [address] Specialist Cardiovascular Disease 06/05/22 documented as of this encounter
--- OUTSIDE RECORDS SUMMARY | 2024-07-28 08:05 | XMS_ITS | Encounter Summary ---
Author Organization [facility] Address [address] [place] [address] Care Team Providers Care Zigzag Tunnel Elastic Operator Name Role Phone Alina Mireles MD Primary Care Provider Un available Yosi Rush Primary Care Provider [phone] Ajay Gallagher MD Unavailable [phone] Encounter Details Date Type Department Care Team Description 12/31/2020 Orders Only Medical Records [address] [place] [address] Noa Bates PA-C [address] [place] [address] Social History Tobacco Use Types Packs/Day Years [...] Name Priority Date/Time Associated Diagnosis Comments OUTSIDE SLEEP STUDY Routine 12/17/2020 documented in this encounter Results * OUTSIDE SLEEP STUDY (12/17/2020) Noa Bates PA-C PULMONOLOGY documented in this encounter Visit Diagnoses Not on filedocumented in this encounter Care Teams Zigzag Tunnel Elastic Operator Relationship Specialty Start Date End Date Alina Mireles MD PCP - General Internal Medicine 10/31/20 Yosi Rush [address] [place] [address] PCP - General Internal Medicine 09/03/21 Ajay Gallagher MD [address] [place] [address] [place] [address] Specialist Cardiovascular Disease 06/05/22 documented as of this encounter
--- OUTSIDE RECORDS SUMMARY | 2024-07-28 08:05 | XMS_ITS | Encounter Summary ---
Author Organization [facility] Address [address] [place] [address] Care Team Providers Care Clay Products Machine Operator Name Role Phone Alina Mireles MD Primary Care Provider Un available Yosi Rush Primary Care Provider Ajay Gallagher MD Unavailable [phone] Encounter Details Date Type Department Care Team Description 06/21/2021 Telephone Pulmonology - [place] [address] [facility] [address] [place] [phone] Jo Howell APRN 175 [facility] [address] [place] [phone] Social History Tobacco Use Types Packs/Day Years [...] on filedocumented in this encounter Care Teams Clay Products Machine Operator Relationship Specialty Start Date End Date Alina Mireles MD PCP - General Internal Medicine 10/31/20 Yosi Rush [address] [place] [address] PCP - General Internal Medicine 09/03/21 Ajay Gallagher MD [address] [place] [address] Specialist Cardiovascular Disease 06/05/22 documented as of this encounter
--- OUTSIDE RECORDS SUMMARY | 2024-07-28 08:05 | XMS_ITS | Encounter Summary ---
Author Organization [facility] Address [address] [place] [address] Care Team Providers Care Economics Instructor Name Role Phone Yosi Rush Primary Care Provider [phone] Ajay Gallagher MD Unavailable [phone] Reason for Visit * Reason Onset Date Comments Call From Pharmacy 09/22/2022 Encounter Details Date Type Department Care Team Description 09/22/2022 Telephone Endocrinology - [address] [address] Perri Pinto PA-C [address] [place] [address] Call From Pharmacy Social History Tobacco Use Types Packs/Day Years [...] encounter Miscellaneous Notes * Telephone Encounter - Micaela Gallardo M.A. - 09/22/2022 1:35 PM EDT Spoke to patient. He will check with other pharmacies and call back. * Telephone Encounter - Perri Pinto PA-C - 09/22/2022 1:08 PM EDT I suggest patient checks other pharmacies besides * Telephone Encounter - Celio Peters - 09/22/2022 10:06 AM EDT What is the name of the medication patient is having a problem with?: Ozempic What is the problem?: Produc backordered Is the patient calling about the problem? NO If the patient is not the caller who is? [facility] Is this a NEW medication?: NO How long has the patient been taking this medication? N/a Who prescribed this medication for the patient? 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
--- OUTSIDE RECORDS SUMMARY | 2024-07-28 08:05 | XMS_ITS | Clinical Summary ---
Author Organization [facility] Address [address] [place] [address] Care Team Providers Care Flow Manager Name Role Phone Yosi Rush Primary Care Provider [phone] Ajay Gallagher MD Unavailable [phone] Allergies Active Allergy Reactions Severity Noted Date Comments Loratadine SOB, Wheezing 02/10/2019 Seasonal Allergies SOB, Wheezing,Runny Nose/Rhinitis 09/18/2017 Medications Medication Sig Dispensed Refills Start Date End Date Status albuterol (ACCUNEB) 0.63 MG/3ML nebulizer solution Take 1 Ampule by nebulization every 6 hours as needed. 0 Active Fexofenadine HCl (SIVAKUMAR ALLERGY OR) Take by mouth. 0 Active glucose monitoring kit (FREESTYLE) monitoring kitIndications:DM type 2 with diabetic peripheral neuropathy (HCC) To be used twice daily to check glucose 1 Kit 0 09/24/2017 Active Blood Glucose Calibration (FREESTYLE CONTROL SOLUTION) LiquidIndications:Di abetes mellitus type 2 with neurological manifestations (HCC) To check FSG twice daily for DM II with peripheral neuropathy 1 Each 1 01/24/2019 Active fluticasone (Flonase) 50 MCG/ACT nasal spray 2 Sprays by Nasal route daily. 1 Bottle 5 09/05/2020 Active ALBUTEROL SULFATE (ProAir HFA) 108 (90 Base) MCG/ACT Aero SolnIndications:Mild persistent asthma without complication Inhale 2 Puffs into the lungs every 6 hours as needed for Cough, Wheezing or Shortness of Breath. 25.5 g 3 12/06/2020 Active montelukast (SINGULAIR) 10 MG tabletIndications:Mi ld persistent asthma without complication,Seasona l allergic rhinitis, unspecified trigger Take 1 tablet by mouth at bedtime. 90 tablet 1 12/06/2020 Active finasteride (PROSCAR) 5 MG tabletIndications:Be nign prostatic hyperplasia, unspecified whether lower urinary tract symptoms present Take 1 Tablet by mouth daily. 0 Active FreeStyle Lancets MiscIndications:Diab etes mellitus type 2 with neurological manifestations (HCC) To check FSG twice daily for DM II with peripheral neuropathy 60 Each 5 05/22/2022 Active Glucose Blood (FREESTYLE LITE) StripIndications:[place] betes mellitus type 2 with neurological manifestations (HCC) 1 Strip by In Vitro route 2 times daily. To check FSG twice daily for DM II with peripheral neuropathy 60 Strip 5 05/22/2022 Active fluticasone-salmeter ol (Advair HFA) 115-21 MCG/ACT inhaler Inhale 2 Puffs into the lungs 2 times daily for 360 days. 1 g 3 08/07/2022 Active tamsulosin (FLOMAX) 0.4 MG 24 hr capsuleIndications:B enign prostatic hyperplasia, unspecified whether lower urinary tract symptoms present Take 2 Capsules by mouth daily. Take 30 mins after same meal every day. 180 Capsule 1 11/27/2022 Active amitriptyline (ELAVIL) 10 MG tabletIndications:Id iopathic peripheral neuropathy Take 4 Tablets by mouth at bedtime for 90 days. 120 Tablet 2 12/12/2022 Active Tiotropium Sidell Monohydrate (Spiriva Respimat) 1.25 MCG/ACT Aero SolnIndications:Mild persistent asthma without complication Inhale 2 Puffs into the lungs daily. 3 g 3 01/19/2023 Active Flovent HFA 220 MCG/ACT inhaler INHALE 1 PUFF BY MOUTH TWICE A DAY 12 g 4 02/27/2023 Active Semaglutide,0.25 or 0.5MG/DOS, (Ozempic, 0.25 or 0.5 MG/DOSE,) 2 MG/1.5ML Solution Pen-injectorIndicati ons:Poorly controlled type II diabetes mellitus with renal complication (HCC) Inject 0.5 mg into the skin every 7 days. 1 mL 5 06/29/2023 Active losartan-hydrochloro thiazide (HYZAAR) 100-12.5 MG per tablet TAKE 1 TABLET BY MOUTH EVERY DAY 90 Tablet 1 07/28/2023 Active Continuous Glucose Sensor (FreeStyle Lucero 3 Sensor) MiscIndications:Diab etes mellitus type 2 with neurological manifestations (HCC) Inject 1 Device into the skin every 14 days. 6 Each 3 08/18/2023 Active metformin (GLUCOPHAGE-XR) 500 MG 24 hr tabletIndications:Ty pe 2 diabetes mellitus with other diabetic neurological complication (HCC) TAKE 2 TABLETS BY MOUTH TWICE A DAY WITH MEALS 120 Tablet 0 10/20/2023 Active Empagliflozin (Jardiance) 10 MG TabIndications:Diabe gemma mellitus type 2 with neurological manifestations (HCC) TAKE 1 TABLET BY MOUTH EVERY DAY 30 Tablet 4 02/09/2024 Active Active Problems Problem Noted Date Shortness of breath on exertion 06/19/19 Last Assessment & Plan: As I noted [...] be an anginal equivalent. Sinus tachycardia 06/18/2022 Last Assessment & Plan: The ECG from May demonstrated the heart rate was 99. Today in the office his ECG demonstrates a heart rate to be 95. At this time I do not see any in the heart rate has been more rapid than this. Type 2 diabetes mellitus with obesity BPH with urinary obstruction 11/01/2021 Overview: [facility] Urology Obstructive sleep apnea mild AHI 6 12/31 Overview: [facility] Home Sleep Apnea Test: Date 12/17/2020; [...] sleep apnea test. COPD with emphysema 10/08/2020 Last Assessment & Plan: Patient with hx of asthma and former smoking shows mild emphesema on CT and PFTs. Elevated LFTs 09/17/2020 Fatty liver 09/17/2020 Type 2 diabetes mellitus wit h hyperglycemia, without long-term current use of insulin 08/30/2020 COVID-19 08/29/2020 Diabetes mellitus type 2 with neurologic al manifestations 01/20/2019 Mild anemia 05/07/2017 Allergic rhinitis 02/26/2017 Genital herpes simplex 02/26/2017 Neuropathy of both feet Hypertension Last Assessment & Plan: Today the blood [...] him about diet decreasing his salt intake. Gout Asthma Lung nodule Overview: Multiple lung nodules. CT 09/10/16: stable from [address] should be repeated in 18-24 months ~03/2018, ordered follow up exam Gallstone Former smoker Vertigo Colon polyp Overview: 06/09/13 colonoscopy, Dr. Alexander Immunizations Name Administration Dates Next Due COVID-19 (Pfizer) 10/29/2020,09/26/2020 COVID-19 (Pfizer) Pt Reported 10/29/2020, 021 Influenza (> 6 Months) 03/18/2020,2015,03/31/2013,03/24 Influenza Vaccine-preservati ve Free-quadrivalent 4 Years 08/03/2023,01/20/2019 Influenza Vaccine-quadrivale nt 4 Years Plus 03/25/2017 Pneumoccoccal(Adult) Polysac charide PPSV23 01/18/2009,01/18/2009 TD (STATE SUPPLIED FOR ADULT S AND CHILDREN) 06/16/2002 Tdap 08/03/2023,03/31/2013,03/31/2013 Family History Medical History Relation Name Comments No Known Problems Daughter Stroke Father DM2, HTN No Known Problems Maternal Grandfather No Known Problems Maternal Grandmother No Known Problems Mother Hypertension Paternal Grandfather No Known Problems Paternal Grandmother Hypertension Sister kidney stones No Known Problems Son Relation Name Status Comments Daughter Alive Father Maternal Grandfather Maternal Grandmother Mother Alive Paternal Grandfather Paternal Grandmother Sister Alive Son Alive Social History Tobacco Use Types Packs/Day Years Used Date Smoking Tobacco: Former Smokeless Tobacco: Current Chew Tobacco Cessation:Ready to Q uit: Not Asked; Counseling Given: Not Answered Alcohol Use Standard Drinks/Week Comments Yes 2 (1 standard drink = 0.6 oz pur e alcohol) daily, beer and liqour Sex Assigned at Date Recorded Not on file Job Start Date Occupation Industry Not on file Not on file Not on file Last Filed Vital Signs Vital Sign Reading Time Taken Comments Blood Pressure 138/81 08/18/2023 3:51 PM EDT Aut o Cuff Pulse 96 08/18/2023 3:51 PM EDT Temperature 36.6 ??C (97.8 ??F) 08/18/2023 3:51 PM ED T Respiratory Rate 20 08/03/2023 3:33 PM EDT Oxygen Saturation 97% 08/18/2023 3:51 PM EDT Inhaled Oxygen Concentration - - Weight 90.3 kg (199 lb) 08/18/2023 3:51 PM EDT Height 177.8 cm (5' 10 ) 08/18/2023 3:51 PM EDT Body Mass Index 28.55 08/18/2023 3:51 PM EDT Plan of Treatment Health Maintenance Due Date Last Done Comments SHINGLES VACCINE (1 of 2) 11/25/2011 DIABETES: ANNUAL EYE EXAM 03/09/20202018, 03/09/2019 (Completed) DIABETES: BLOOD SUGAR CONTRO L TEST (HGBA1C) 03/10/2023 12/08/2022, 05/20/2022, 01/28/2021, Additional history exists DIABETES/HEART DISEASE: SHOSHANA AL CHOLESTEROL (LDL) 05/20/2023 05/20/2022, 08/29/2020, 05/02/2019, Additional history exists DIABETES: ANNUAL URINE PROTE IN TEST (MICROALBUMIN) 05/20/2023 05/20/2022, 08/29/2020, 01/20/2019, Additional history exists Covid-19 Vaccine (2022-06 4 season) 2024 10/29/2020, 10/29/2020, 09/26/2020, Additional history exists INFLUENZA (#1) 2024 08/03/2023, 12/2019, 01/20/2019, Additional history exists TOBACCO CHECK/ADVISE 03/21/2024 03/21/2022 (Complete d) BMI CHECK/ADVISE 05/11/2024 08/18/2023, , 08/03/2023 (Completed), Additional history exists COLON CANCER SCREENING 06/20/2024 06/20/2019, 2013 DIABETES: ANNUAL FOOT EXAM 08/02/2024 08/03/2023 BASELINE HEALTH EXAM 40-64 08/02/202508/02, 05/02/2019, 05/02/2019 PNEUMOCOCCAL VACCINE FOR HIG H RISK PATIENTS (#2) 2026 01/18/2009, 01/18/2009 DTAP/TDAP/TD (4 - Td or Tdap) 08/02/2033, 03/31/2013, 03/31/2013, Additional history exists HEPATITIS C SCREENING Completed 05/02/2019 Care Teams Flow Manager Relationship Specialty Start Date End Date Yosi Rush [address] [place] [address] PCP - General Internal Medicine 09/03/21 Ajay Gallagher MD [address] [place] [address] Specialist Cardiovascular Disease 06/05/22
--- OUTSIDE RECORDS SUMMARY | 2024-07-28 08:05 | XMS_ITS | Encounter Summary ---
Author Organization [facility] Address [address] [place] [address] Care Team Providers Care Program Instructor Name Role Phone Yosi Rush Primary Care Provider [phone] Ajay Gallagher MD Unavailable [phone] Encounter Details Date Type Department Care Team Description 10/25/2021 Supervisor [employer] Report Medical Records [address] [place] [address] Olman Alfonso MD Social History Tobacco Use [...] on filedocumented in this encounter Care Teams Program Instructor Relationship Specialty Start Date End Date Yosi Rush [address] [place] [address] PCP - General Internal Medicine 09/03/21 Ajay Gallagher MD Medical [facility] [address] [place] [id number] Specialist Cardiovascular Disease 06/05/22 documented as of this encounter
== END ==
LOC: HO.CARD 08:00
PROVIDERS: PCP Internal Medicine; Visit Provider Physician Assistant Medical
DX: R07.89 Other chest pain (principal)
CPT/HCPCS: 93242; 93306; Q9957

== ENCOUNTER → 2024-07-28 08:03 | Outpatient (BNV) | payer OTHER, SELFPAY | PROVIDERS: PCP Internal Medicine; Visit Provider Internal Medicine Cardiovascular Disease | DX: R00.0 Tachycardia, unspecified (principal) | CPT/HCPCS: 93244 ==

== ENCOUNTER 2024-08-22 14:37 | Outpatient (AMB) | payer OTHER, SELFPAY ==
--- NOTE | 2024-08-22 14:41 | A.OFFVIS_ITS ---
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 Allergies loratadine [From Claritin] Allergy (Severe, Verified 07/01/24 16:09) Hives Medication List - Last Reconciled 08/22/24 by Shawn Mueller MD cyclobenzaprine 10 mg PO Q8H PRN diclofenac sodium 75 mg PO BID PRN 30 days empagliflozin (Jardiance) 10 mg PO DAILY finasteride 5 mg PO DAILY fluticasone propionate 220 mcg/actuation 2 puffs inhalation BID ketorolac 10 mg PO Q8H PRN losartan-hydrochlorothiazide 100-12.5 mg 1 tab PO DAILY 90 days metformin ER 500 mg PO BID 90 days methocarbamol 750 mg PO TID 30 days mirabegron ER (Myrbetriq) 25 mg PO DAILY 30 days semaglutide (Ozempic) 0.5 mg (0.736 mL) subcut QWEEK 4 weeks tamsulosin 0.8 mg (2 x 0.4 mg) PO DAILY 90 days HPI Comments Details: The patient is a 63-year-old male presenting with chest pain. The pain has persisted for about three months and is absent of any precipitating factors or triggers. It occurs in a band-like fashion from below the left ribs to an aligned spot in the back and varies in intensity, sometimes becoming exc ruciating. Previous trips to the emergency room had ruled out immediate heart concerns. The patient suffers from pre-existing conditions such as asthma and COPD. He is on medication for diabetes and hypertension and has reported a significant weight loss facilitated by Ozempic. Though a CT scan was suggested to further explore his condition, the request was initially denied by insurance. The patient's liver enzymes showed slight abnormality, and he reportedly drinks moderately. With regard to chest pain itself, nonexertional can happen any time. When he is lying, sitting standing extra. He is describing some discomfort even now. No other complaints like shortness of breath, palpitations, syncopal episodes extra. No previous cardiovascular issues like coronary disease or myocardial infarction or cardiomyopathy. - No known heart attacks - No family history of heart disease - Normal echocardiogram as per recent testing - Normal ER cardiac evaluations including troponin levels and repeated EKGs [facility] Medical History (Updated 08/22/24 @ 16:03 by Shawn Mueller MD) Essential hypertension Type 2 diabetes mellitus, without long-term current use of insulin COPD (chronic obstructive pulmonary disease) Left low back pain Left upper quadrant abdominal pain Left flank pain Surgical History History of colonoscopy History of rotator cuff surgery Family History Mother Osteoporosis Father Hypertension Diabetes Social History Housing: House Alcohol intake: current Alcohol intake frequency: 0-2 drinks per day Alcohol type: beer Patient Tobacco Use Status: Former Tobacco user Tobacco use type: Cigarette e-Cigarette/Vaping Use: Never Used Second Hand Smoke Exposure: No service: Yes Current occupational status: employed Current occupational exposures/hazards: No Cognitive needs: No Hearing needs: No Vision needs: Yes Review of Systems Const Denies weakness ENT Denies dizziness Card Reports chest pain, Denies chest pain with activity, Denies syncope, Denies rapid heart rate, Denies pedal edema, Denies edema, Denies leg edema, Denies lightheadedness, Denies palpitations, Denies dyspnea, Denies dyspnea on exertion and Denies orthopnea Resp Denies cough, Denies dyspnea and Denies dyspnea on exertion GI Denies hematochezia and Denies change in stool character Musc Denies abnormal gait, Denies muscle cramps, Denies muscle weakness, Denies numbness, Denies radiating pain into limb and Denies tingling Neuro Denies abnormal gait, Denies dizziness, Denies syncope, Denies numbness, Denies tingling and Denies weakness Endo Denies palpitations Physical Exam Vital Signs: Last Vital Signs Pulse 78 08/22/24 14:42 BP 130/78 08/22/24 14:42 BMI result Body Mass Index 29.1 Const General: comfortable and no acute distress Orientation/consciousness: patient oriented x3 HEENT Other: Unremarkable Head: Yes normal to inspection Neck Neck: Yes normal visual inspection Chest Chest palpation & inspection: normal inspection of the chest Resp Auscultation: clear to auscultation bilaterally Cardio Palpation: normal PMI Heart sounds: S1 normal heart sound present, S2 normal heart sound present, no gallops, no murmurs and no rubs GI Palpation (GI): Soft to palpation Back/Spine/Pelvis Other: unremarkable Skin General skin exam: no rashes or lesions noted Neuro General: patient oriented x3 Extrem General: Yes normal to inspection Psych Mental Status: mental status grossly normal Assessment & Plan Assessment & Plan (1) Left upper quadrant abdominal pain: Code(s): R10.12 - Left upper quadrant pain Category: Medical Plan His chest pain is more so in the left upper quadrant of the abdomen and very atypical for cardiac presentation. EKG shows underlying sinus rhythm at 100/Min; no ischemic findings and otherwise unremarkable. Echocardiogram with LVEF of 60-65%. No significant valvular findings. Holter shows underlying sinus rhythm with frequent sinus tachycardia. Chest x-ray shows subsegmental atelectasis versus scar in the right lung. Multiple thoracic spondylosis. Multiple sets of high sensitivity troponins normal. Cardiac BNP is in normal range. Overall, very low suspicion for cardiac etiology of the left upper quadrant pain. He needs evaluation rather for noncardiac etiology. We will reorder the CT scan to look for any mass extra. Plan discussed with the patient and he agrees with this. Discussion Notes During our discussion, I explained to the patient that his current symptoms and previous ER findings are less likely to imply any underlying cardiac issue, as evidenced by normal EKGs and troponin levels. I clarified that the CT scan could provide insights into other potential causes like gastrointestinal or muscular issues unrelated to the heart, and discussed the necessary follow-up actions pending scan results. I emphasized the importance of continuing to manage his existing conditions such as diabetes, hypertension, and COPD effectively to avoid further complications. I highlighted that his weight loss is beneficial and likely contributing positively to his overall health, as does the control of his COPD symptoms. Orders: Orders CT abdomen pelvis w IV con Today R10.12 - Left upper quadrant pain CT chest w IV con Today R10.12 - Left upper quadrant pain Basic Metabolic Panel Today R10.12 - Left upper quadrant pain Patient Instructions: - Continue medications as prescribed for diabetes, hypertension, and weight loss - Maintain medication adherence specific for COPD once available - Follow prescribed dietary and lifestyle modifications for blood pressure and weight management - Monitor for any worsening symptoms or new developments, especially those related to chest pain - Follow up after the CT scan results for further evaluation and management decisions Coding Level of Care Code New Pt Level 4 (87283) Complex EM visit Add On G2211 Diagnoses Left upper quadrant abdominal pain R10.12
[2024-08-22 14:42] VITALS: BP 130/78; PULSE 78; BMI 29.1
--- OUTSIDE RECORDS SUMMARY | 2024-08-22 17:05 | XMS_ITS | Clinical Summary ---
Author Organization [address] [place] [address] [place] [id number] Phone Care Team Providers Care Sales And Catering Coordinator Name Role Phone Sylvia Stoner MD Primary Care Provider [phone] Allergies Active Allergy Reactions Criticality Noted Date [...] rapid than this. Type 2 diabetes mellitus wit h obesity ([facility] V24, [facility] V28) 06/13/2022 BPH with urinary obstruction 11/01/2021 Overview (02/16/2024): [facility] Urology Obstructive sleep apnea 12/31/2020 Overview (02/16/2024): [facility] Home Sleep Apnea Test: Date 12/17/2020; Wt [...] home sleep apnea test. COPD with emphysema ([facility] V24, [facility] V28) 0 10/08/2020 Overview (02/16/2024): Last Assessment & Plan: Patient with hx of asthma and former smoking shows mild emphesema on CT and PFTs. Elevated LFTs 09/17/2020 Fatty liver 09/17/2020 Type 2 diabetes mellitus wit h hyperglycemia, without long-term current use of insulin ([facility] V24, [facility] V28) 08/30/2020 COVID-19 08/29/2020 Diabetes mellitus type 2 wit h neurological manifestations ([facility] V24, [facility] V28) 01/20/2019 Mild anemia 05/07/2017 Allergic rhinitis 02/26/2017 [...] Sinus tachycardia 06/18/2022 Type 2 diabetes mellitus wit h obesity ([facility] V24, [facility] V28) 06/13/2022 Sleep apnea 12/31/2020 Obstructive COPD (chronic obstructive pu lmonary disease) ([facility] V24, [facility] V28) 10/08/2020 w/emphysema Elevated LFTs 09/17/2020 Asthma Vertigo [...] Vaccines (1 of 2) 11/25/2011 RSV Immunization Adult Patients (1 - Risk 60-74 years 1-dose series) 2021 Depression Screening 04/19/2022 HIV Screening 04/19/2022 Social Influencers of Health Screening 04/19/2022 Diabetes: Annual Urine Albumin-Creatinine Ratio (uACR) 05/20/2023 05/20/2022 Diabetes: Annual GFR (Glomerular Filtration Rate) 05/20/2023 05/20/2022 Hypertension/CHF/CAD Annual BMP Blood Test 05/20/2023 05/20/2022 Diabetes: Blood Sugar Control Test (HGBA1C) 06/10/2023 12/08/2022 COVID-19 Vaccine ( season) 2024 10/29/2020, 09/26/2020 Colorectal Cancer Screening: Colonoscopy 06/20/2024 06/20/2019 Diabetes: Annual Foot Exam 08/02/2024 08/03/2023 Influenza Vaccine (Season Ended) 2025 08/03/2023, 03/18/2020, 01/20/2019, Additional history exists Cholesterol Screening (Lipid Panel) 05/20/2027 05/20/2022 DTaP,Tdap,and [...] age to complete this topic Meningococcal B Vaccine Aged Out No l onger eligible based on patient's age to complete [...] Blood Venous blood specimen / Unknown Result [facility] Provider LAB BLOOD ORDERABLES Paz l Result * Urine Albumin Creatinine Ratio (05/20/2022) Pathologist [facility] Urine Albumin Creatinine Ratio abstracted Result [facility] Provider HEALTH MAINTENANCE Final Result * Annual BMP Blood Test (05/20/2022) [facility] Annual BMP Blood Test abstarcted Result [facility] Provider HEALTH MAINTENANCE Final Result * Lipid panel (05/20/2022) [facility] LDL/HDL Ratio 3 0 - 4 Triglycerides 144 0 - 150 mg/dL Cholesterol 150 0 - 200 mg/dL HDL 52 >=40 mg/dL LDL Cholesterol 70 0 - 100 mg/dL Blood Venous blood specimen / Unknown Result [facility] Provider LAB BLOOD ORDERABLES Paz l Result * Colonoscopy (06/20/2019) [facility] Colonoscopy abstracted, no interpretation Anatomical Region Laterality Modality Other Result [facility] Provider HEALTH MAINTENANCE Final Result * Hepatitis C Screening (05/02/2019) [facility] Hepatitis C Screening abstracted Result [facility] Provider HEALTH MAINTENANCE Final Result from Last 3 Months or Most Recently Relevant to Health Maintenance Insurance [facility] Care Teams Sales And Catering Coordinator Relationship Specialty Start Date End Date Sylvia Stoner MD [address] [facility] [address] [facility] D/B/A: Marbin Hawkinsatideandre In Internal Medicine ROSY Zazueta PCP - General Internal Medicine 03/11/24
== END 2024-08-22 15:54 | disposition home or self-care (01) ==
PROVIDERS: PCP Internal Medicine; Visit Provider Internal Medicine
DX: R10.12 Left upper quadrant pain (principal)
CPT/HCPCS: 99204

== ENCOUNTER 2025-02-07 11:34 | Outpatient (AMB) | payer OTHER, SELFPAY ==
[2025-02-07 12:42] VITALS: BP 122/70; PULSE 89; RESP 18; TEMP 36.5; O2SAT 97; BMI 28.3
--- NOTE | 2025-02-07 12:42 | A.OFFPC_ITS ---
Vital Signs 02/07/25 12:42 Height 5 ft 10 in Weight 197 lb BMI 28.3 BP 122/70 Blood Pressure Location Lt brachial Position Sitting Respiration 18 Pulse 89 Pulse Source Pulse Oximeter Temp 97.7 F Temp Source Temporal Artery Scan Pulse Oximetry (%) 97 Oxygen Delivery Method Room Air Intake Visit Reasons: Follow up Reliability Manager Required: No Accompanied by: Self / Same As Patient Allergies loratadine (From Claritin) Allergy (Severe, Verified 02/07/25 12:45) Hives Medication List - Last Reconciled 02/07/25 by Preston Cardenas MD cyclobenzaprine 10 mg PO Q8H PRN diclofenac sodium 75 mg PO BID PRN empagliflozin (Jardiance) 10 mg PO DAILY finasteride 5 mg PO DAILY fluticasone propionate 220 mcg/actuation 2 puffs inhalation BID [Mengerostyle lucero sensor As directed] losartan-hydrochlorothiazide 100-12.5 mg 1 tab PO DAILY 90 days metformin ER 500 mg PO BID 90 days methocarbamol 750 mg PO TID 30 days mirabegron ER (Myrbetriq) 25 mg PO DAILY 30 days semaglutide (Ozempic) 0.5 mg (0.736 mL) subcut QWEEK 4 weeks tamsulosin 0.8 mg (2 x 0.4 mg) PO DAILY 90 days Tobacco use date assessed: 02/07/25 Dental Screening Dental Screen Date: 02/07/25 Did you have a dental visit in the last 12 months?: Yes Did you have a dental problem in the last 6 months where you did not have access to dental care?: No Was dental information given to patient?: Patient has dentist HPI HPI Comments History of Present Illness Details The patient is a 64-year-old male presenting with a follow-up after toe amputation surgery. The patient underwent toe amputation on January 02 at [facility] due to gangrene, which developed following an unnoticed toe fracture that became infected. Post-surgery, the patient was discharged on Augmentin and OxyContin for pain management, with the latter being refilled recently. The patient has a history of neuropathy, asthma, and Chronic Obstructive Pulmonary Disease (COPD). He uses a Crush on original productsyle Lucero monitor for diabetes management, which has recently been discontinued, and is on medications including Ozempic, Metformin, and Jardiance. The patient reports persistent tachycardia since a COVID-19 infection four to five years ago, with no associated symptoms such as chest pain or palpitations. [facility] Medical History Essential hypertension Type 2 diabetes mellitus, without long-term current use of insulin COPD (chronic obstructive pulmonary disease) Left low back pain Left upper quadrant abdominal pain Left flank pain Surgical History History of colonoscopy History of rotator cuff surgery Family History Mother Osteoporosis Father Hypertension Diabetes Social History Housing: House Alcohol intake: current Alcohol intake frequency: 0-2 drinks per day Alcohol type: beer Patient Tobacco Use Status: Former Tobacco user Tobacco use type: Cigarette e-Cigarette/Vaping Use: Never Used Second Hand Smoke Exposure: No service: Yes Current occupational status: employed Current occupational exposures/hazards: No Cognitive needs: No Hearing needs: No Vision needs: Yes Questionnaire PHQ-9 Over the last 2 weeks, how often have you been bothered by any of the following problems? 1. Little interest or pleasure in doing things: not at all 2. Feeling down, depressed, or hopeless: not at all 3. Trouble falling or staying asleep, or sleeping too much: not at all 4. Feeling tired or having little energy: not at all 5. Poor appetite or overeating: not at all 6. Feeling bad about yourself - or that you are a failure or have let yourself or your family down: not at all 7. Trouble concentrating on things, such as reading the newspaper or watching television: not at all 8. Moving or speaking so slowly that other people could have noticed. Or the opposite - being so fidgety or restless that you have been moving around a lot more than usual: not at all 9. Thoughts that you would be better off or of hurting yourself in some way: not at all Total score: 0 Source: Developed by Drs. Bryant Pete, Deana Henderson, Mirza Tierney and colleagues, with an educational jayesh from [employer]. Thrive Questionnaire Date Thrive assessed: 02/07/25 I am a: Patient What is your living situation today?: I have a steady place to live Within the past 12 months, did the food you bought not last and you didn't have the money to get more?: Never true Within the past 12 months, did you worry whether your food would run out before you got money to buy more?: Never true Do you have trouble paying for medicines?: No Do you have trouble getting transportation to medical appointments?: No Do you have trouble paying your heating and electricity bill?: No Do you have trouble taking care of your child, family member or friend?: No Do you have trouble with day-to-day activities such as bathing, preparing meals, shopping, managing finances, etc.?: No Are you currently unemployed and looking for a job?: No Are you interested in more education?: No Please select the resources that you would like help with: None Currently or been in a relationship where the following occur: No concerns reported THRIVE Score: 0 AUDIT C Alcohol Use Questionnaire (AUDIT-C) 1. How often do you have a drink containing alcohol?: 4 or more times a week 2. How many drinks containing alcohol do you have on a typical day when you are drinking?: 1 or 2 3. How often do you have six or more drinks on one occasion?: Less than monthly Total Score: 5 FLETCHER-7 AMB Questionnaire FLETCHER-7 Date FLETCHER - 7 assessed: 07/01/24 Feeling nervous, anxious, or on edge: 0 = Not at all Not being able to stop or control worryin = Not at all Worrying too much about different things: 0 = Not at all Trouble relaxin = Not at all Being so restless that it is hard to sit still: 0 = Not at all Becoming easily annoyed or irritable: 0 = Not at all Feeling afraid as if something awful might happen: 0 = Not at all Total FLETCHER-7 score (0-4 normal; 5-9 mild; 10-14 moderate; 15-21 severe): 0 Source: Developed by Drs. Bryant ePte, Deana Henderson, Mirza Tierney and colleagues, with an educational jayesh from [employer]. Review of Systems Const Details: Positives besides what was mentioned in HPI are in BOLD Constitutional: No Weight Change, No Fever, No Chills, No Night Sweats, No Fatigue, No Malaise ENT/Mouth: No Hearing Changes, No Ear Pain, No Nasal Congestion, No Sinus Pain, No Hoarseness, No sore throat, No Rhinorrhea, No Swallowing Difficulty Eyes: No Eye Pain, No Swelling, No Redness, No Foreign Body, No Discharge, No Vision Changes Cardiovascular: No Chest Pain, No SOB, No PND, No Dyspnea on Exertion, No Orthopnea, No Claudication, No Edema, No Palpitations Respiratory: No Cough, No Sputum, No Wheezing, No Smoke Exposure, No Dyspnea Gastrointestinal: No Nausea, No Vomiting, No Diarrhea, No Constipation, No Pain, No Heartburn, No Anorexia, No Dysphagia, No Hematochezia, No Melena, No Flatulence, No Jaundice Genitourinary: No Dysmenorrhea, No DUB, No Dyspareunia, No Dysuria, No Urinary Frequency, No Hematuria, No Urinary Incontinence, No Urgency, No Flank Pain, No Urinary Flow Changes, No Hesitancy Musculoskeletal: No Arthralgias, No Myalgias, No Joint Swelling, No Joint Stiffness, No Back Pain, No Neck Pain, No Injury History Skin: No Skin Lesions, No Pruritis, No Hair Changes, No Breast/Skin Changes, No Nipple Discharge Neuro: No Weakness, No Numbness, No Paresthesias, No Loss of Consciousness, No Syncope, No Dizziness, No Headache, No Coordination Changes, No Recent Falls Psych: No Anxiety/Panic, No Depression, No Insomnia, No Personality Changes, No Delusions, No Rumination, No SI/HI/AH/VH, No Social Issues, No Memory Changes, No Violence/Abuse Hx., No Eating Concerns Heme/Lymph: No Bruising, No Bleeding, No Transfusions History, No Lymphadenopathy Endocrine: No Polyuria, No Polydipsia, No Temperature Intolerance Physical exam (Primary Care) Vital Signs: Last Vital Signs Temp 97.7 F 02/07/25 12:42 Pulse 89 02/07/25 12:42 Resp 18 02/07/25 12:42 BP 122/70 02/07/25 12:42 Pulse Ox 97 02/07/25 12:42 Oxygen Delivery Method Room Air 02/07/25 12:42 BMI result Body Mass Index 28.3 Tobacco/Smoking Status: Tobacco use Status Tobacco use date assessed 02/07/25 02/07/25 12:50 Patient Tobacco Use Status Former Tobacco user 02/07/25 12:50 Tobacco use type Cigarette 02/07/25 12:50 e-Cigarette/Vaping Use Never Used 02/07/25 12:50 PHQ-9: PHQ-9 Score PHQ-9: Total score 0 02/07/25 12:55 Thrive Assessment: Date of Thrive Assessment Date Thrive assessed 02/07/25 02/07/25 12:50 Currently or been in a relationship where the following occur: No concerns reported Const Other: Pertinent findings are in BOLD GENERAL APPEARANCE NAD, activity normal for age, well developed/ well nourished, no cyanosis, pallor, or diaphoresis. EYES lids/conjunctiva normal. EARS/NOSE/THROAT Mucous membranes moist, nares normal, lips/teeth normal uvula midline without oral pharyngeal erythema, exudate or swelling TMs normal bilaterally. No lymphangitis/lymphedema. HEAD/NECK normocephalic atraumatic, no facial trauma, neck is supple. RESPIRATORY respiratory effort normal, speaks in full sentences, no tripod position, no accessory muscle use. Lungs clear to auscultation without rhonchi, wheezes, rales CARDIAC Regular rate and rhythm, no edema. ABDOMINAL Soft, ND/NT. No evidence of fluid wave. No pulsatile masses on exam, rebound tenderness, Hercules sign or pain over Mcburney's point. MUSCLES/EXTREMITIES No abnormal range of motion, no swelling. Left foot wrapped in stevan. SKIN Warm, pink and dry. No rashes, dermatoses, petechiae or lesions. NEUROLOGICAL Speech is clear and appropriate. Normal level of consciousness. Gait and coordination are normal. 5/5 strength in all extremities. PSYCH Normal mood and affect. Judgement/competence is appropriate Coding Level of Care Code Tele Est Pt Level 4 (00364) Diagnoses Status post amputation of toe Z89.429 Neuropathy G62.9 Type 2 diabetes mellitus with diabetic neuropathy, without long-term current use of insulin E11.40 Diabetes mellitus complication status: with neurologic complications Diabetes mellitus complication detail: with unspecified neuropathy Tachycardia R00.0 Chronic obstructive pulmonary disease, unspecified COPD type J44.9 COPD type: unspecified COPD Time Spent (min) 30 Assessment & Plan Assessment & Plan (1) Status post amputation of toe: Code(s): Z89.429 - Acquired absence of other toe(s), unspecified side Category: Medical Plan: - Continue wound care and monitor for signs of infection. - Patient has seen the surgeons a few weeks ago. - Continue pain management by surgery. (2) Neuropathy: Code(s): G62.9 - Polyneuropathy, unspecified Category: Medical Plan: Continue DM management. (3) Type 2 diabetes mellitus, without long-term current use of insulin: Code(s): E11.9 - Type 2 diabetes mellitus without complications Category: Medical Qualifiers: Diabetes mellitus complication status: with neurologic complications Di abetes mellitus complication detail: with unspecified neuropathy Qualified Code(s): E11.40 - Type 2 diabetes mellitus with diabetic neuropathy, unspecified Plan: Continue current regimen. Freestyle lucero refilled as per patint request. Repeat labs with next visit. (4) Tachycardia: Code(s): R00.0 - Tachycardia, unspecified Category: Medical Plan: - Sinus rythm in clinic. - Reports previous episodes of tachycardia while in the hospital and at home. - Patient asymptomatic when tachycardic. - His tachycardia is most likely driven by surgery, pain and inflamation. - We will CTM for now. - Consider Holter monitor if tachycardia persists. (5) COPD (chronic obstructive pulmonary disease): Code(s): J44.9 - Chronic obstructive pulmonary disease, unspecified Category: Medical Qualifiers: COPD type: unspecified COPD Qualified Code(s): J44.9 - Chronic obstructive pulmonary disease, unspecified Plan: Patient has F-U with pulm next month. He currently using Albuterl rescue inhaler only. No wheezing or signs of respiratory distress in clinic. Plan During the visit, we discussed the management of the patient's neuropathy, asthma, COPD, and diabetes. We emphasized the importance of monitoring blood sugar levels and maintaining a healthy diet. The patient was advised to continue using Ventolin for asthma symptoms and to follow up with the sales operations specialist for COPD management. We also discussed the need to monitor the [place] ent's heart rate and consider further evaluation if symptoms develop. The patient was informed about the importance of wound care and monitoring for signs of infection post-amputation. Medications: New [Freestyle lucero sensor] As directed 6 ea 4RF
--- OUTSIDE RECORDS SUMMARY | 2025-02-07 13:04 | XMS_ITS | Clinical Summary ---
Author Organization [address] [place] [address] [place] [id number] Phone Care Team Providers Care Project Analyst Name Role Phone Sylvia Stoner MD Primary Care Provider [phone] Allergies Active Allergy Reactions Criticality Noted Date [...] BPH with urinary obstruction 11/01/2021 Overview (02/16/2024): [facility]rology Obstructive sleep apnea 12/31/2020 Overview (02/16/2024): [facility] Home Sleep Apnea Test: Date 12/17/2020; Wt [...] home sleep apnea test. COPD with emphysema ([facility] V24, [facility] V28) 0 10/08/2020 Overview (02/16/2024): Last Assessment & Plan: Patient with hx of asthma and former smoking shows mild emphesema on CT and PFTs. Elevated LFTs 09/17/2020 Fatty liver 09/17/2020 Type 2 diabetes mellitus wit h hyperglycemia, without long-term current use of insulin ([facility] V24, [facility] V28) 08/30/2020 COVID-19 08/29/2020 Diabetes mellitus type 2 wit h neurological manifestations ([facility] [place], [facility] V28) 01/20/2019 Mild anemia 05/07/2017 Allergic rhinitis 02/26/2017 Genital herpes simplex 02/26/2017 Immunizations Immunization Administration Dates Next Due Influenza Quadravalent, MDCK [...] 06/18/2022 Type 2 diabetes mellitus with obesity 06/13/2022 Sleep apnea 12/31/2020 Obstructive COPD (chronic obstructive pu lmonary disease) ([facility] [place], [facility] V28) 10/08/2020 w/emphysema Elevated LFTs 09/17/2020 Asthma [...] - Risk 60-74 years 1-dose series) 2021 HIV Screening 04/19/2022 Social Influencers of Health Screening 04/19/2022 Diabetes: Annual Urine Albumin-Creatinine Ratio (uACR) 05/20/2023 05/20/2022 Diabetes: Annual GFR (Glomerular Filtration Rate) 05/20/2023 05/20/2022 Hypertension/CHF/CAD Annual BMP Blood Test 05/20/2023 05/20/2022 Diabetes: Blood Sugar Control Test (HGBA1C) 06/10/2023 12/08/2022 Depression Screening 05/11/2024 Colorectal Cancer Screening: Colonoscopy 06/20/2024 06/20/2019 Diabetes: Annual Foot Exam 08/02/2024 08/03/2023 COVID-19 Vaccine ( season) 2025 10/29/2020, 09/26/2020 Influenza Vaccine (#1) 2025 , 03/18/2020, 01/20/2019, Additional history exists Cholesterol Screening [...] Results * Diabetes Foot Exam (08/03/2023) Pathologist [facility] Diabetes: Annual Foot Exam abstracted Historical Provider HEALTH MAINTENANCE Final Result * (ABNORMAL) Hemoglobin A1c (12/08/2022) [facility] Hemoglobin A1C 6.6(A) <=6.5 % Blood Venous blood specimen / Unknown Historical Provider LAB BLOOD ORDERABLES Paz l Result * Urine Albumin Creatinine Ratio (05/20/2022) Pathologist [facility] Urine Albumin Creatinine Ratio abstracted [facility] Provider HEALTH MAINTENANCE Final Result * Annual BMP Blood Test (05/20/2022) Health system Annual BMP Blood Test abstarcted [facility] Provider HEALTH MAINTENANCE Final Result * Lipid panel (05/20/2022) [facility] LDL/HDL Ratio 3 0 - 4 Triglycerides 144 0 - 150 mg/dL Cholesterol 150 0 - 200 mg/dL HDL 52 >=40 mg/dL LDL Cholesterol 70 0 - 100 mg/dL Blood Venous blood specimen / Unknown Result [facility] Provider LAB BLOOD ORDERABLES Paz l Result * Colonoscopy (06/20/2019) Health system Colonoscopy abstracted, no interpretation Anatomical Region Laterality Modality Other Result [facility] Provider HEALTH MAINTENANCE Final Result * Hepatitis C Screening (05/02/2019) Health system Hepatitis C Screening abstracted [facility] Provider HEALTH MAINTENANCE Final Result from Last 3 Months or Most Recently Relevant to Health Maintenance Insurance [facility] Care Teams Project Analyst Relationship Specialty Start Date End Date Sylvia Stoner MD [address] [place] [address] , [address] [facility] D/B/A: [facility] ROSY Zazueta PCP - General Internal Medicine 03/11/24
== END 2025-02-07 13:19 | disposition home or self-care (01) ==
LOC: HO.HMCH 11:35
PROVIDERS: PCP Internal Medicine; Visit Provider Internal Medicine
DX: E11.40 Type 2 diabetes mellitus with diabetic neuropathy, unspecified (principal); Z89.429 Acquired absence of other toe(s), unspecified side; J44.9 Chronic obstructive pulmonary disease, unspecified; R00.0 Tachycardia, unspecified; G62.9 Polyneuropathy, unspecified

== ENCOUNTER 2025-02-22 09:06 | Outpatient (REF) | payer OTHER, SELFPAY ==
[2025-02-22 11:15] LABS: MANUAL DIFF FLAG NO
[2025-02-22 11:28] LABS: Hematocrit 37.3 % (42.0-52.0); Hemoglobin 12.7 g/dl (14.0-18.0); Imm Gran Abs Auto 0.03 X10*3/uL (0.00-0.03); Imm Gran Pct Auto 0.5 % (0.0-0.4); Lymphocytes Absolute Auto 1.0 X10*3/uL (1.2-4.9); Mean Corpuscular HGB Conc 34.0 g/dl (31.0-36.0); Mean Corpuscular Hemoglobin 31.2 pg (27.0-33.0); Mean Corpuscular Volume 91.6 fL (80.0-98.0); NRBC Abs Auto 0.000 X10*3/uL (0.0-0.012); NRBC Pct Auto 0.0 /100WBC (0.0-0.2); Platelet Count 130 X10*3/uL (160-400); Red Blood Count 4.07 X10*6/uL (4.60-5.80); White Blood Count 5.5 X10*3/uL (4.8-10.8)
[2025-02-22 12:09] LABS: Anion Gap 15 (12-20); Blood Urea Nitrogen 10 mg/dL (9-16); Calcium 9.3 mg/dL (8.4-10.2); Carbon Dioxide 24 mmol/L (22-29); Chloride 107 mmol/L (96-108); Estimated Glomerular Filt Rate > 60; Potassium 3.8 mmol/L (3.3-5.1); Sodium 142 mmol/L (135-145)
[2025-02-27 17:49] LABS: Class Alternaria alternata 0; Class Aspergillus fumigatus 0; Class Bermuda Grass 0; Class Birch 0; Class Cat Dander 0; Class Cladosporium herbarum 0; Class Cockroach 0; Class Common Ragweed 0; Class Cottonwood 0; Class Derm. pterony 2; Class Dermatophagoides farinae 2; Class Dog Dander 0; Class Elm 0; Class Maple Box Elder 0; Class Mountain Cedar 0; Class Mouse Urine Protein 0; Class Mugwort 0; Class Oak 0; Class Penicillium crysogenum 0; Class Rough Pigweed 0; Class Sheep Sorrel 0; Class Sycamore 0; Class Timothy Grass 0; Class Walnut Tree 0; Class White Ash 0; Class White Mulberry 0; D002 - IgE D farinae 0.77 kU/L; E001 - IgE Cat Dander <0.10 kU/L; E005 - IgE Dog Dander <0.10 kU/L; G006 - IgE Timothy Grass <0.10 kU/L; I006-IgE Cockroach, German <0.10 kU/L; M002 - IgE Cladosporium herbar <0.10 kU/L; M003 - IgE Aspergillus fumigat <0.10 kU/L; M006 - IgE Alternaria alternat <0.10 kU/L; T001 IgE Maple/Box Elder <0.10 kU/L; T006 - IgE Cedar, Mountain <0.10 kU/L; T007 - IgE Oak, White <0.10 kU/L; T008 IgE Elm, American <0.10 kU/L; T010 - IgE Walnut <0.10 kU/L; T011 - IgE Maple Leaf Sycamore <0.10 kU/L; T014 - IgE Cottonwood <0.10 kU/L; T015 - IgE Ash, White <0.10 kU/L; T070 - IgE White Mulberry <0.10 kU/L; W001 - IgE Ragweed, Short <0.10 kU/L; W006 - IgE Mugwort <0.10 kU/L; W014 IgE Pigweed, Common <0.10 kU/L; W018 IgE Sheep Sorrel <0.10 kU/L
== END 2025-02-22 09:07 | disposition home or self-care (01) ==
LOC: HO.WFDLDS 09:06
PROVIDERS: Internal Medicine; PCP Internal Medicine; Referring Provider Internal Medicine; Visit Provider Nurse Practitioner Family
DX: J44.9 Chronic obstructive pulmonary disease, unspecified (principal); J45.909 Unspecified asthma, uncomplicated; R91.8 Other nonspecific abnormal finding of lung field; R10.12 Left upper quadrant pain; Z87.891 Personal history of nicotine dependence; Z91.09 Other allergy status, other than to drugs and biological substances
CPT/HCPCS: 36415; 80048; 82785; 85025; 86003

== ENCOUNTER 2025-02-22 09:06 | Outpatient (AMB) | payer OTHER, SELFPAY ==
--- NOTE | 2025-02-22 09:09 | A.OFFVIS_ITS ---
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 offered & declined Accompanied by: Self / Same As Patient Allergies loratadine (From Claritin) Allergy (Severe, Verified 02/22/25 09:33) Hives Medication List - Last Reconciled 02/22/25 by Lillian Brumfield LPN [Freestyle akosua sensor 3 plus As directed] cyclobenzaprine 10 mg PO Q8H PRN diclofenac sodium 75 mg PO BID PRN empagliflozin (Jardiance) 10 mg PO DAILY finasteride 5 mg PO DAILY fluticasone propionate 220 mcg/actuation 2 puffs inhalation BID losartan-hydrochlorothiazide 100-12.5 mg 1 tab PO DAILY 90 days metformin ER 500 mg PO BID 90 days methocarbamol 750 mg PO TID 30 days mirabegron ER (Myrbetriq) 25 mg PO DAILY 30 days semaglutide (Ozempic) 0.5 mg (0.736 mL) subcut QWEEK 4 weeks tamsulosin 0.8 mg (2 x 0.4 mg) PO DAILY 90 days HPI HPI Dyspnea: Details: Harsh is a pleasant 64 year old male, former 15 pack year smoker, quit 30 years ago, with underlying COPD, HTN and DMII. He was referred by PCP for pulmonary evaluation for further management of COPD. He previously reports excellent control on Advair and Spiriva however due to changes with providers and insurance he has been without. He reports notable dyspnea which has progressively worsened since he has been without medications. Denies cough, wheezing or chest tightness. He endorses seasonal allergies, previously had allergy testing 10+ years ago revealing significant environmental allergies. 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 He denies pertinent family history. He reports prior h/o pulmonary nodules that have been reportedly stable. Reviewed chest CT from 2021 which revealed multiple scattered pulmonary nodules, largest measuring 1.4 cm nodule the right middle lobe with recommendations for PET versus surveillance CT, it is unclear if this was performed. He also reports prior PFT performed in the last two years performed at [facility]. Reports not available today. [facility] Medical History Essential hypertension Type 2 diabetes mellitus, without long-term current use of insulin COPD (chronic obstructive pulmonary disease) Left low back pain Left upper quadrant abdominal pain Left flank pain Surgical History History of colonoscopy History of rotator cuff surgery Family History Mother Osteoporosis Father Hypertension Diabetes Social History (Updated 02/22/25 @ 09:35 by Lillian Brumfield LPN) Housing: House Alcohol intake: current Alcohol intake frequency: 0-2 drinks per day Alcohol type: beer Patient Tobacco Use Status: Former Tobacco user Tobacco use type: Cigarette Cigarette Packs Per Day: 1 Years Smoked: 18 yrs/stopped 30yrs ago e-Cigarette/Vaping Use: Never Used Second Hand Smoke Exposure: No service: Yes Current occupational status: employed Current occupational exposures/hazards: No Cognitive needs: No Hearing needs: No Vision needs: Yes Review of Systems Const Denies chills, Denies excessive sweating, Denies fever(s), Denies headache(s) and Denies night sweats Eyes Denies dry eyes, Denies irritation and Denies itchy eyes ENT Reports Normal hearing present, Denies headache(s), Denies nasal congestion, Denies nasal discharge, Denies post nasal drip and Denies sore throat Card Denies chest pain, Denies chest pain at rest, Denies chest pain with activity, Denies claudication, Denies leg edema, Denies orthopnea and Denies paroxysmal nocturnal dyspnea Resp Denies chest congestion, Denies cough, Denies excessive phlegm production, Denies pain on inspiration, Denies pain with cough, Denies stridor and Denies wheezing Musc Denies myalgias Neuro Reports Normal hearing present and Denies headache(s) Endo Denies excessive sweating Hamilton/Lymph Denies lymphadenopathy Aller/Immun Denies itchy eyes, Denies seasonal rhinorrhea and Denies wheezing Physical Exam Vital Signs: BMI result Body Mass Index 0.4 Const General: cooperative, healthy appearing, comfortable, no acute distress, well developed and alert Nutritional Appearance: obese Orientation/consciousness: patient oriented x3 Limitations: no limitations HEENT Head: Yes normal to inspection, Yes normocephalic and Yes atraumatic Ears: hearing grossly normal bilaterally and external ears normal Eyes General: appearance normal, both eyes and all related structures Eyelids: Yes eyelids normal Sclerae: sclerae normal EOM: EOMs intact bilaterally Neck Neck: Yes normal visual inspection and Yes no lymphadenopathy Lymphatic: no lymphadenopathy noted Chest Chest palpation & inspection: normal inspection of the chest Resp Effort & Inspection: normal respiratory effort, able to speak in complete sentences, no audible wheezes, no cough, no stridor, not tachypneic, no tripod positioning and no use of accessory muscles Auscultation: clear to auscultation bilaterally Cardio Jugular venous distension: no JVD Rate: regular rate Rhythm: regular rhythm Skin Other: warm, dry General skin exam: no rashes or lesions noted Neuro General: patient oriented x3 Cranial nerves: Yes Normal hearing present Cognition (Neuro): normal cognition Gait exam (Neuro): Normal gait present Extrem General: Yes normal to inspection, Yes capillary refill normal, Yes no clubbing, cyanosis or edema and Yes no pedal edema Psych Appearance: grossly normal and well kempt Speech and movement: Normal speech and movement present and Clear speech present Affect: normal affect Attitude: cooperative Thought process: Normal thought process present Thought content: Normal thought content present Insight: Good insight present (Psych) Judgement: Good judgement present (Psych) Results Reviewed Results Reviewed: [address] [address] XRay Report Signed Patient: Harsh Rubin MR#: [id number] : 1960 Acct:[id number] Age/Sex: 63 / M ADM Date: 06/15/24 Loc: .ED Attending Dr: Ordering Physician: Andreas Craig MD Date of Service: 06/15/24 Procedure(s): XR chest 1V Accession Number(s): [id number] cc: Andreas Craig MD; Sylvia Kovacs MD~ EXAMINATION: XR CHEST CLINICAL INFORMATION: chest pain COMPARISON: June 12, 2024. TECHNIQUE: Frontal view of the chest was obtained. FINDINGS: Linear opacity in the peripheral right mid hemithorax. No pleural effusion or pneumothorax. No gross consolidation. No hyperinflation. Cardiomediastinal silhouette is normal in size. Multilevel thoracic spondylosis. XR/XR chest 1V IMPRESSION: Subsegmental atelectasis versus scar, right lung. Electronically signed by: Kamlesh Chery MD 06/15/2024 09:38 AM EST Dictated By: Kamlesh Hopper MD Signed By: <Electronically signed by Kamlesh Aamya MD in OV> 06/15/2438 DD/ 3 TD/TT: 06/15/24917 Maternity Nurse: Assessment & Plan Assessment & Plan (1) Multiple pulmonary nodules: Code(s): R91.8 - Other nonspecific abnormal finding of lung field Category: Medical (2) Asthma: Code(s): J45.909 - Unspecified asthma, uncomplicated Category: Medical (3) COPD (chronic obstructive pulmonary disease): Code(s): J44.9 - Chronic obstructive pulmonary disease, unspecified Category: Medical Qualifiers: COPD type: unspecified COPD Qualified Code(s): J44.9 - Chronic obstructive pulmonary disease, unspecified (4) Environmental allergies: Code(s): Z91.09 - Other allergy status, other than to drugs and biological substances Category: Medical (5) Personal history of tobacco use: Code(s): Z87.891 - Personal history of nicotine dependence Category: Social Hx Plan Harsh presents for pulmonary evaluation for management of COPD, unclear severity. Will prescribe Spiriva, Advair in addition to Albuterol MDI as he previously reported excellent control on this regimen, confirmed with his prior records that he was receiving this. Reviewed records and last chest CT from 2021 demonstrated multiple scattered pulmonary nodules, largest measuring 1.4 cm of right middle lobe. Will reach out to [facility] to see if any other imaging was obtained after this. In the mean time will order chest CT for further evaluation. Will also obtain prior PFT which was reportedly performed in last 2 years at [facility]. Patient also reports history of environmental allergies trigger and respiratory symptoms, will send for RAST. All questions were answered and patient is in agreement of plan. Will follow-up to review results or sooner if needed. Orders: Orders 2 Complete Blood Count Auto Diff Today Z91.09 - Other allergy status, other than to drugs and biological substances Immunoglobulin E Today Z91.09 - Other allergy status, other than to drugs and biological substances CT chest w IV con Today R91.8 - Other nonspecific abnormal finding of lung field Resp Allergy Profile Region I Today Z91.09 - Other allergy status, other than to drugs and biological substances Medications: New 2 fluticasone propion-salmeterol 250-50 mcg/dose (Advair Diskus) 1 inh inhalation Q12H 60 ea 3RF tiotropium bromide 1.25 mcg/actuation (Spiriva Respimat) 2 puffs inhalation DAILY 4 grams 3RF albuterol sulfate 90 mcg/actuation 2 puffs inhalation Q4-6H PRN 1 ea 0RF shortness of breath or wheezing Discontinued 2 fluticasone propionate 220 mcg/actuation Discontinued Reason: Patient Completed Course 2 puffs inhalation BID 12 grams 0RF Coding Level of Care Code New Pt Level 4 (21260) Complex EM visit Add On G2211 Diagnoses Multiple pulmonary nodules R91.8 Asthma J45.909 Chronic obstructive pulmonary disease, unspecified COPD type J44.9 COPD type: unspecified COPD Environmental allergies Z91.09 Personal history of tobacco use Z87.891
--- OUTSIDE RECORDS SUMMARY | 2025-02-22 09:58 | XMS_ITS | Clinical Summary ---
Author Organization [address] [place] [address] [place] [phone] Phone Care Team Providers Care Skimmer Reverberatory Name Role Phone Sylvia Stoner MD Primary Care Provider [phone] Allergies Active Allergy Reactions Criticality Noted Date [...] Type 2 diabetes mellitus with obesity 06/13/2022 Overview (02/08/2025): 02/08/25 Regulatory IMO Update BPH with urinary obstruction 11/01/2021 Overview (02/16/2024): [facility] Obstructive sleep apnea 12/31/2020 Overview (02/16/2024): [facility] Home Sleep Apnea Test: Date 12/17/2020; [...] home sleep apnea test. COPD with emphysema (CMS/HCC V24, CMS/HCC V28) 0 10/08/2020 Overview (02/16/2024): Last Assessment & Plan: Patient with hx of asthma and former smoking shows mild emphesema on CT and PFTs. Elevated LFTs 09/17/2020 Fatty liver 09/17/2020 Type 2 diabetes mellitus wit h hyperglycemia, without long-term current use of insulin ([facility] [place]24, [facility] V28) 08/30/2020 COVID-19 08/29/2020 Diabetes mellitus type 2 wit h neurological manifestations ([facility] V24, [facility] V28) 01/20/2019 Mild anemia 05/07/2017 Allergic rhinitis [...] Obstructive COPD (chronic obstructive pu lmonary disease) ([facility] V24, [facility] V28) 10/08/2020 w/emphysema Elevated LFTs 09/17/2020 Asthma [...] (2 of 2 - PCV) 01/18/2010 01/18/2009 RSV Immunization Adult Patients (1 - Risk 50-74 years 1-dose series) 11/25/2011 Zoster Vaccines (1 of 2) 11/25/2011 HIV Screening 04/19/2022 Social Influencers of Health [...] Exam (08/03/2023) Diabetes: Annual Foot Exam abstracted Historical Provider HEALTH MAINTENANCE Final Result * (ABNORMAL) Hemoglobin A1c (12/08/2022) Hemoglobin A1C 6.6(A) <=6.5 % Blood Venous blood specimen / Unknown us Historical Provider LAB BLOOD ORDERABLES Paz l Result * Urine Albumin Creatinine Ratio (05/20/2022) [facility] Urine Albumin Creatinine Ratio abstracted Result [facility] Historical Provider HEALTH MAINTENANCE Final Result * Annual BMP Blood Test (05/20/2022) [facility] Annual BMP Blood Test abstarcted Result [facility] Provider HEALTH MAINTENANCE Final Result * Lipid panel (05/20/2022) [facility] LDL/HDL Ratio 3 0 - 4 Triglycerides 144 0 - 150 mg/dL Cholesterol 150 0 - 200 mg/dL HDL 52 >=40 mg/dL LDL Cholesterol 70 0 - 100 mg/dL Blood Venous blood specimen / Unknown Result [facility] Provider LAB BLOOD ORDERABLES Paz l Result * Colonoscopy (06/20/2019) [facility] Colonoscopy abstracted, no interpretation Anatomical Region Laterality Modality Other Result [facility] Historical Provider HEALTH MAINTENANCE Final Result * Hepatitis C Screening (05/02/2019) [facility] Hepatitis C Screening abstracted Result [facility] Provider HEALTH MAINTENANCE Final Result from Last 3 Months or Most Recently Relevant to Health Maintenance [facility] [id number] [facility] Care Teams Skimmer Reverberatory Relationship Specialty Start Date End Date Sylvia Stoner MD [address] [place] [address] , [address] [facility] D/B/A: [facility] ROSY Zazueta PCP - General Internal Medicine 03/11/24
== END 2025-02-22 10:01 | disposition home or self-care (01) ==
LOC: HO.HPSW 09:07
PROVIDERS: PCP Internal Medicine; Referring Provider Internal Medicine; Visit Provider Nurse Practitioner Family
DX: R91.8 Other nonspecific abnormal finding of lung field (principal); J45.909 Unspecified asthma, uncomplicated; J44.9 Chronic obstructive pulmonary disease, unspecified; Z91.09 Other allergy status, other than to drugs and biological substances; Z87.891 Personal history of nicotine dependence
CPT/HCPCS: 99204

== ENCOUNTER 2025-03-14 14:11 | Outpatient (REF) | payer OTHER, SELFPAY ==
--- NOTE | ~2025-03-14 | CT_ITS ---
EXAMINATION: CT CHEST WITH IV CONTRAST INDICATION: R91.8 - Other nonspecific abnormal finding of lung field COMPARISON: Previous chest x-ray June 2024 TECHNIQUE: Helical CT scan of the chest was performed following administration of intravenous contrast. 65 mL Omnipaque 350 administered. Coronal and sagittal reformatted images were generated and reviewed. This CT exam was performed with one or more of the following dose reduction techniques: automated exposure control, adjustment of the mA and/or kV according to patient size, use of iterative reconstruction technique. DLP: 194 mGy-cm CHEST: THYROID: The thyroid is unremarkable. LUNGS: Right: 3 mm right upper lobe nodule axial image 35 series 7. 3 mm right upper lobe nodule axial image 53 series 7. 2 mm right upper lobe nodule axial image 67 series 7. 2 mm right upper lobe nodule axial image 74 series 7. 3 mm right upper lobe nodule axial image 75 series 7. 2 mm right upper lobe nodule axial image 71 series 7. 3 mm right upper lobe nodule axial image 87 series 7. Several peripheral or subpleural right lower lobe nodules adjacent to the major fissure measuring 3 mm axial image 85 and 86 and 4 mm axial image 88 series 7. 5 mm right middle lobe nodule axial image 100 series 7. There are 2 adjacent 4 mm right lower lobe nodules axial image 109 series 7. 4 mm right lower lobe nodule axial image 114 series 7. 4 mm left lower lobe nodule axial image 117 series 7. 3 mm right lower lobe nodule axial image 117 series 7. Left: 2 mm left upper lobe nodule axial image 39 series 7. 4 mm left upper lobe nodule axial image 99 series 7. 3 mm left lower lobe nodule axial image 90 series 7 that may be related to bronchial soft tissue opacification. 3 mm left lower lobe nodule axial image 129 series 7. There are scattered areas of bronchial wall thickening. Central airways are clear. MEDIASTINUM: There is no mediastinal lymphadenopathy. MIRTHA: There is no hilar lymphadenopathy. CARDIOVASCULATURE: The heart is normal in size. There is no pericardial effusion. The thoracic aorta is normal in caliber. DEGREE OF CORONARY CALCIFICATION: mild PLEURA: There is no pleural effusion. No pneumothorax. MAIN AIRWAYS: The mainstem bronchi and proximal branches are patent. AXILLA: There is no axillary lymphadenopathy. BONES AND SOFT TISSUES: Degenerative changes of the spine. Ankylosis of multiple lower thoracic vertebral bodies. Several nonspecific sclerotic densities in the bones, largest measuring 5 mm in the T9 vertebral body. UPPER ABDOMEN: Gallstones. Slightly nodular contour to the liver and hypertrophy of the left lobe and caudate lobe just above mild cirrhosis. Spleen not completely imaged but appears prominent. Small upper abdominal lymph nodes. CT/CT chest w IV con IMPRESSION: Bilateral pulmonary nodules largest measuring 5 mm in the right middle lobe. Probable cirrhotic changes of the liver and splenomegaly. Gallstones. Degenerative changes of the spine and multilevel ankylosis. Nonspecific small sclerotic lesions in the thoracic spine largest measuring 9 mm in the T9 vertebral body. Fleischner Criteria for pulmonary nodule follow-up SOLID NODULES: Low risk patient: <6mm: no follow-up 6-8mm: 6 month follow-up CT >8mm: PET/Biopsy/ 3 month follow-up CT High risk patient: <6mm: 12 month follow-up CT 6-8mm: 6 month follow-up CT >8mm: PET/Biopsy/ 3 month follow-up CT SUB-SOLID/GROUNDGLASS NODULES: All patients: > or = 6mm: 6 month follow-up CT *Please note that in patients in the following categories, the Fleischner criteria do not apply: Immunocompromised, lung cancer screening population, age below 35, and patients with known malignancy Electronically signed by: Holly Schmitz MD 03/14/2025 04:36 PM [facility]
[2025-03-14] MEDS: iohexoL 350 MG/ML 100 ML INFUS..BTL IV (16:11)
--- OUTSIDE RECORDS SUMMARY | 2025-03-14 17:12 | XMS_ITS | Clinical Summary ---
Author Organization [address] [place] [address] [place] [phone] Phone Care Team Providers Care Vice President Education Name Role Phone Sylvia Stoner MD Primary Care Provider [phone] Allergies Active Allergy Reactions Criticality Noted Date [...] BPH with urinary obstruction 11/01/2021 Overview (02/16/2024): [facility] Obstructive sleep apnea 12/31/2020 Overview (02/16/2024): [facility] Home Sleep Apnea Test: Date 12/17/2020; [...] hyperglycemia, without long-term current use of insulin ([facility] V24, [facility] V28) 08/30/2020 COVID-19 08/29/2020 Diabetes mellitus type 2 wit h neurological manifestations ([facility] V24, [facility] V28) 01/20/2019 Mild anemia 05/07/2017 Allergic rhinitis [...] Obstructive COPD (chronic obstructive pu lmonary disease) ([facility] V24, [facility] V28) 10/08/2020 w/emphysema Elevated LFTs 09/17/2020 Asthma [...] Result * Urine Albumin Creatinine Ratio (05/20/2022) [facility] Urine Albumin Creatinine Ratio abstracted Result [facility] Historical Provider HEALTH MAINTENANCE Final Result * Annual BMP Blood Test (05/20/2022) [facility] Annual BMP Blood Test abstarcted Result [facility] Provider HEALTH MAINTENANCE Final Result * Lipid panel (05/20/2022) [facility] LDL/HDL Ratio 3 0 - 4 Triglycerides 144 0 - 150 mg/dL Cholesterol 150 0 - 200 mg/dL HDL 52 >=40 mg/dL LDL Cholesterol 70 0 - 100 mg/dL Blood Venous blood specimen / Unknown Result [facility] Provider LAB BLOOD ORDERABLES Paz l Result * Colonoscopy (06/20/2019) [facility] Colonoscopy abstracted, no interpretation Anatomical Region Laterality Modality Other Result [facility] Historical Provider HEALTH MAINTENANCE Final Result * Hepatitis C Screening (05/02/2019) [facility] Hepatitis C Screening abstracted Result [facility] Provider HEALTH MAINTENANCE Final Result from Last 3 Months or Most Recently Relevant to Health Maintenance Insurance [facility] [id number] [facility] Care Teams Vice President Education Relationship Specialty Start Date End Date Sylvia Stoner MD [address] [place] [address] , [address] [facility] Physician Associ D/B/A: [facility] ROSY Zazueta PCP - General Internal Medicine 03/11/24
== END 2025-03-14 14:12 | disposition home or self-care (01) ==
LOC: HO.CT 14:11
PROVIDERS: PCP Internal Medicine; Visit Provider Nurse Practitioner Family
DX: R91.8 Other nonspecific abnormal finding of lung field (principal)
CPT/HCPCS: 71260; Q9967

== ENCOUNTER → 2025-03-14 14:13 | Outpatient (BNV) | payer OTHER, SELFPAY | PROVIDERS: PCP Internal Medicine; Visit Provider Radiology Diagnostic Radiology | DX: R91.8 Other nonspecific abnormal finding of lung field (principal); M47.814 Spondylosis without myelopathy or radiculopathy, thoracic region; M45.4 Ankylosing spondylitis of thoracic region | CPT/HCPCS: 71260 ==